=== PATIENT | female | born 1990 | race Caucasian/White ===

== ENCOUNTER 2022-10-21 20:57 | Inpatient (IN) ==
[2022-10-21] MEDS ORDERED: SODIUM CHLORIDE 0.9% 1000ML 1,000 ML IV SCH (21:15)
[2022-10-21] MEDS ORDERED: OLANZapine 10 MG/2.1 ML SDV IM STA (21:22)
[2022-10-21 21:39] LABS: Basophils # (auto) 0.04 K/uL (0-0.2); Basophils % (auto) 0.5 %; Eosinophils # (auto) 0.26 K/uL (0-0.50); Hemoglobin 11.5 g/dl (12.0-16.0); Immature Granulocytes # (auto) 0.02 K/uL (0.01-0.20); Immature Granulocytes % (auto) 0.2 %; Lymphocytes # (auto) 1.75 K/uL (1.2-3.4); Lymphocytes % (auto) 20.2 %; Mean Corpuscular Hemoglobin 28.5 pg (25.0-34.0); Mean Corpuscular Hgb Conc 32.9 g/dL (32.0-36.0); Mean Corpuscular Volume 86.6 fL (80.0-100.0); Mean Platelet Volume 11.2 fL (9.4-12.4); Monocytes # (auto) 0.38 K/uL (0.11-0.59); Monocytes % (auto) 4.4 %; Neutrophils # (auto) 6.21 K/uL (1.40-6.50); Neutrophils % (auto) 71.7 %; Platelet Count 209 K/uL (130-400); RDW Coefficient of Variation 13.7 % (11.5-14.5); Red Blood Count 4.04 M/uL (4.20-5.40); White Blood Count 8.66 K/ul (4.8-10.8)
[2022-10-21 21:51] LABS: Alanine Aminotransferase 16 U/L (7-52); Albumin Globulin Ratio 1.4 (0.9-2); Albumin Level 3.8 gm/dl (3.4-5.0); Alkaline Phosphatase 38 U/L (34-104); Anion Gap 5 (3-11); Aspartate Aminotransferase 23 U/L (13-39); BUN Creatinine Ratio 26.8 (10-20); Bilirubin,Total 0.3 mg/dl (0.2-1.0); Blood Urea Nitrogen 15 mg/dl (6-23); Calcium 9.1 mg/dl (8.6-10.3); Carbon Dioxide 25 mmol/L (21-32); Chloride 110 mmol/L (98-107); Est GFR (Non-African American) 123.4 ml/min; Globulin 2.8 gm/dl (2.5-4.0); Glucose 95 mg/dl (70-99(Fasting)); Magnesium 2.1 mg/dl (1.7-2.4); Sodium 140 mmol/L (136-145); Total Protein 6.6 gm/dl (6.0-8.3)
[2022-10-21 21:57] LABS: Appearance Urine Clear (Clear); Bilirubin Urine Negative (Negative); Blood Urine Negative (Negative); Color Urine Yellow; Glucose Urine UA Negative (Negative); Ketones Urine Trace (Negative); Leukocyte Esterase Urine Negative (Negative); Nitrite Urine Negative (Negative); Protein Urine Negative (Negative); Urobilinogen Urine Negative (Negative)
[2022-10-21 22:24] LABS: Amphetamines+Metham, Urine Neg (Neg); Barbiturates, Urine Neg (Neg); Benzodiazepine, Urine Neg (Neg); Cocaine, Urine Neg (Neg); MDMA (Ecstacy), Urine Neg (Neg); Methadone, Urine Neg (Neg); Opiate, Urine Neg (Neg); Phencyclidine, Urine Neg (Neg)
--- NOTE | 2022-10-21 22:57 | Emergency Department Note ---
Impression & Plan [facility] ED Provider Note CHIEF COMPLAINT: Altered mental status HISTORY OF PRESENT ILLNESS: This 32-year-old female patient past medical history of psychosis and migraine headaches presents to the emergency department after being found outside of her apartment complex staring. Patient was apparently alone at the time. She does have a history per police of similar, they came across her several months ago. Not much is known about the patient's family/housing situation at the time of EMS drop-off. REVIEW OF SYSTEMS: Unable to obtain a full review of systems secondary to patient's mental status. ALLERGIES: see below MEDICATIONS: see below PMH: see below SOCIAL HISTORY: see below DDx: Mood disorder, infection, hypoglycemia, electrolyte abnormalities, cardiac sources, intracerebral event, toxicologic, trauma, neurologic, as well as other pathologies. PHYSICAL EXAM: Vital signs reviewed. General: Chronically [id number] 32 yo female, in no significant di stress. HEENT: No scleral icterus, PERRLA, neck supple. Seborrheic dermatitis to the face Cardiovascular: Regular rate and rhythm, no extra sounds. Pulmonary: Clear to auscultation bilaterally, normal work of breathing. Abdomen: Soft, nontender, nondistended, positive bowel sounds. Musculoskeletal: Atraumatic, no peripheral edema. Neurologic: Patient awake, responds to painful stimuli but slowly. Nonverbal. Keeps her eyes closed but does blink when her name is called. Skin: Warm, dry, no rash EMERGENCY DEPARTMENT COURSE/MDM: Additional history was obtained through police from family members. Patient apparently lives in an apartment with her 2 brothers who were not able to give much detail about the patient's medical history except that she was recently prescribed antibiotics for "Lyme disease." 1 brother did describe to police that is not unusual for the patient to stand and stare and one room for several hours. She was apparently nonverbal for several months in the early spring of this year. She has been admitted for psychosis in the past. The patient was medically evaluated here in the emergency department and felt stable for psychiatric admission. She did receive Zyprexa 5 mg IM during her stay in the emergency department. At this time there is no evidence of medical abnormality including negative CT scan of the brain. Urine drug screen is negative. The patient's case was discussed with Dr. Shafer at the change of shift pending a 302 bed search by the [facility] delegate. Patient is felt to be unable to consent given her mental status, she is unable to care for self and to take her medications. She will require inpatient psychiatric care. MONITORING: An order for cardiac monitoring was placed and the patient is noted to be in a normal sinus rhythm at 88 beats per minute. RADIOLOGY: CT imaging of the head to my interpretation reveals no evidence of a cute intracranial abnormality, otherwise defer to radiology. DISPOSITION: pending Past Med/Surg History Medical History Allergic rhinitis Migraine Vitamin D deficiency Surgical History History of wisdom tooth extraction Family History Mother FHx: allergies Diabetes Heart disease Father , Age 56 Heart disease Myocardial infarction Pulmonary embolism Aunt Breast cancer Colorectal cancer Grandmother (Maternal) Myocardial infarction Denies family history of Ovarian cancer Prostate cancer Social History Smoking Status: Unknown if ever smoked Second Hand Exposure: Yes; Do You Dip or Chew Tobacco: No; Hx Alcohol Use: Yes Alcohol type: hard liquor Alcohol Intake Frequency: Monthly or Less Hx Substance Use: No Preferred Language: [place] Visual Impairment: Limited Hearing Ability: Normal Conductor Freight Required: No marital status: Single Current Living Situation: Family current occupational status: employed current occupation: [employer] How many Children do You have: 0 Feels Safe at Home: Declines to Answer Childhood Exposure to Second-Hand Smoke: Yes caffeine: Yes Dental Care, Regularly: No Physical Activity Frequency: 1-2 Times per Week Seatbelt Use: always Sunscreen Use: Yes Do you think of yourself as: straight/heterosexual Sexual Activity: has never been active Allergies Allergies Allergy/AdvReac Type Severity Reaction Status Date / Time strawberry Allergy Unknown Verified 10/22/22 00:10 tree and shrub pollen Allergy Unknown Verified 10/22/22 00:10 yellow dye Allergy Unknown Verified 10/22/22 00:10 Home Meds Home Medications Medication Instructions Recorded Confirmed cetirizine 10 mg tablet (Zyrtec) 10 mg PO DAILY 11/03/19 10/22/22 azelastine 137 mcg (0.1 %) nasal 1 spray intranasal BID 10/22/22 10/22/22 spray aerosol cholecalciferol (vitamin D3) 50 50 mcg PO DAILY 10/22/22 10/22/22 mcg (2,000 unit) tablet (Vitamin D3) vitamin B complex 1 tab PO DAILY 10/22/22 10/22/22 Results & Data (ED) Vital Signs Vital Signs - 24 hr 10/21/22 21:04 10/21/22 21:03 10/21/22 22:01 Temperature 37 C Temperature Source Oral Pulse Rate 88 89 98 H Pulse Rate [Finger] Pulse Rhythm Regular Pulse Strength Normal Respiratory Rate 17 21 Respiratory Effort / Characteristics Non-Labored Spontaneous Respiratory Depth Normal Respiratory Pattern Regular Blood Pressure 130/82 118/72 Blood Pressure [Left Arm] Blood Pressure Mean 98 87 Blood Pressure Mean [Left Arm] Blood Pressure Position Sitting Pulse Oximetry 100 98 Oxygen Delivery Method Room Air Room Air Sepsis Recent Fever Within 48 Hours No Sepsis New/Unexplained Change in Mental Status N/A Sepsis Action Taken by Nursing No Action Required 10/21/22 22:30 10/21/22 23:00 10/21/22 23:30 Temperature Temperature Source Pulse Rate 67 72 88 Pulse Rate [Finger] Pulse Rhythm Pulse Strength Respiratory Rate 19 19 20 Respiratory Effort / Characteristics Respiratory Depth Respiratory Pattern Blood Pressure 102/56 L 109/76 112/78 Blood Pressure [Left Arm] Blood Pressure Mean 71 87 89 Blood Pressure Mean [Left Arm] Blood Pressure Position Pulse Oximetry 97 97 94 Oxygen Delivery Method Room Air Room Air Room Air Sepsis Recent Fever Within 48 Hours Sepsis New/Unexplained Change in Mental Status Sepsis Action Taken by Nursing 10/22/22 00:00 10/22/22 00:56 10/22/22 01:28 Temperature Temperature Source Pulse Rate 62 58 L Pulse Rate [Finger] 77 Pulse Rhythm Pulse Strength Respiratory Rate 20 14 Respiratory Effort / Characteristics Non-Labored Spontaneous Respiratory Depth Normal Respiratory Pattern Blood Pressure 98/55 L Blood Pressure [Left Arm] 116/81 Blood Pressure Mean 69 Blood Pressure Mean [Left Arm] 92 Blood Pressure Position Pulse Oximetry 98 97 Oxygen Delivery Method Room Air Room Air Sepsis Recent Fever Within 48 Hours Sepsis New/Unexplained Change in Mental Status Sepsis Action Taken by [facility] Medications Current Medication List: was personally reviewed by me (Prescription fill history reviewed.) Laboratory Data Attestation: I reviewed the patient's lab results. 10/21/22 21:16 10/21/22 21:16 Lab Results 10/21/22 10/21/22 10/21/22 Range/Units 21:04 21:16 21:16 WBC 8.66 (4.8-10.8) K/ul RBC 4.04 L (4.20-5.40) M/uL Hgb 11.5 L (12.0-16.0) g/dl Hct 35.0 L (37.0-47.0) % MCV 86.6 (80.0-100.0) fL MCH 28.5 (25.0-34.0) pg MCHC 32.9 (32.0-36.0) g/dL RDW Std Deviation 43.0 (36.4-46.3) fL RDW Coeff of Klarissa 13.7 (11.5-14.5) % Plt Count 209 (130-400) K/uL MPV 11.2 (9.4-12.4) fL Immature Gran % (Auto) 0.2 % Neut % (Auto) 71.7 % Lymph % (Auto) 20.2 % Bonner % (Auto) 4.4 % Eos % (Auto) 3.0 % Baso % (Auto) 0.5 % Neut # (Auto) 6.21 (1.40-6.50) K/uL Lymph # (Auto) 1.75 (1.2-3.4) K/uL Bonner # (Auto) 0.38 (0.11-0.59) K/uL Eos # (Auto) 0.26 (0-0.50) K/uL Baso # (Auto) 0.04 (0-0.2) K/uL Immature Gran # (Auto) 0.02 (0.01-0.20) K/uL Sodium 140 (136-145) mmol/L Potassium 4.0 (3.5-5.1) mmol/L Chloride 110 H (98-107) mmol/L Carbon Dioxide 25 (21-32) mmol/L Anion Gap 5 (3-11) BUN 15 (6-23) mg/dl Creatinine 0.56 L (0.6-1.2) mg/dl Est Cr Clr Drug Dosing Not Reportable Est GFR ( Amer) 143.0 ml/min Est GFR (Non-Af Amer) 123.4 ml/min BUN/Creatinine Ratio 26.8 H (10-20) Glucose 95 (70-99(Fasting)) mg/dl POC Glucose 105 H (70-99) mg/dl Calcium 9.1 (8.6-10.3) mg/dl Magnesium 2.1 (1.7-2.4) mg/dl Total Bilirubin 0.3 (0.2-1.0) mg/dl AST 23 (13-39) U/L ALT 16 (7-52) U/L Alkaline Phosphatase 38 (34-104) U/L Total Protein 6.6 (6.0-8.3) gm/dl Albumin 3.8 (3.4-5.0) gm/dl Globulin 2.8 (2.5-4.0) gm/dl Albumin/Globulin Ratio 1.4 (0.9-2) TSH (0.300-4.500) uIu/ml Urine Color Urine Appearance (Clear) Urine pH (4.5-7.5) Ur Specific Eden (1.000-1.030) Urine Protein (Negative) Urine Glucose (UA) (Negative) Urine Ketones (Negative) Urine Blood (Negative) Urine Nitrite (Negative) Urine Bilirubin (Negative) Urine Urobilinogen (Negative) Ur Leukocyte Esterase (Negative) Urine Opiates Screen (Neg) Ur Methadone, Qual (Neg) Urine Barbiturates (Neg) Ur Phencyclidine (PCP) (Neg) U Amphetamin/Meth Scrn (Neg) MDMA (Ecstasy) Screen (Neg) U Benzodiazepines Scrn (Neg) Ur Cocaine Metabolite (Neg) U Marijuana (THC) Screen (Neg) Ethyl Alcohol mg/dL (<10.0) mg/dl SARS-CoV-2, RNA, NAAT (NEGATIVE) 10/21/22 10/21/22 10/21/22 Range/Units 21:16 21:16 21:30 WBC (4.8-10.8) K/ul RBC (4.20-5.40) M/uL Hgb (12.0-16.0) g/dl Hct (37.0-47.0) % MCV (80.0-100.0) fL MCH (25.0-34.0) pg MCHC (32.0-36.0) g/dL RDW Std Deviation (36.4-46.3) fL RDW Coeff of Klarissa (11.5-14.5) % Plt Count (130-400) K/uL MPV (9.4-12.4) fL Immature Gran % (Auto) % Neut % (Auto) % Lymph % (Auto) % Bonner % (Auto) % Eos % (Auto) % Baso % (Auto) % Neut # (Auto) (1.40-6.50) K/uL Lymph # (Auto) (1.2-3.4) K/uL Bonner # (Auto) (0.11-0.59) K/uL Eos # (Auto) (0-0.50) K/uL Baso # (Auto) (0-0.2) K/uL Immature Gran # (Auto) (0.01-0.20) K/uL Sodium (136-145) mmol/L Potassium (3.5-5.1) mmol/L Chloride (98-107) mmol/L Carbon Dioxide (21-32) mmol/L Anion Gap (3-11) BUN (6-23) mg/dl Creatinine (0.6-1.2) mg/dl Est Cr Clr Drug Dosing Est GFR ( Amer) ml/min Est GFR (Non-Af Amer) ml/min BUN/Creatinine Ratio (10-20) Glucose (70-99(Fasting)) mg/dl POC Glucose (70-99) mg/dl Calcium (8.6-10.3) mg/dl Magnesium (1.7-2.4) mg/dl Total Bilirubin (0.2-1.0) mg/dl AST (13-39) U/L ALT (7-52) U/L Alkaline Phosphatase (34-104) U/L Total Protein (6.0-8.3) gm/dl Albumin (3.4-5.0) gm/dl Globulin (2.5-4.0) gm/dl Albumin/Globulin Ratio (0.9-2) TSH 1.571 (0.300-4.500) uIu/ml Urine Color Urine Appearance (Clear) Urine pH (4.5-7.5) Ur Specific Eden (1.000-1.030) Urine Protein (Negative) Urine Glucose (UA) (Negative) Urine Ketones (Negative) Urine Blood (Negative) Urine Nitrite (Negative) Urine Bilirubin (Negative) Urine Urobilinogen (Negative) Ur Leukocyte Esterase (Negative) Urine Opiates Screen (Neg) Ur Methadone, Qual (Neg) Urine Barbiturates (Neg) Ur Phencyclidine (PCP) (Neg) U Amphetamin/Meth Scrn (Neg) MDMA (Ecstasy) Screen (Neg) U Benzodiazepines Scrn (Neg) Ur Cocaine Metabolite (Neg) U Marijuana (THC) Screen (Neg) Ethyl Alcohol mg/dL < 10.0 (<10.0) mg/dl SARS-CoV-2, RNA, NAAT NEGATIVE (NEGATIVE) 10/21/22 10/21/22 Range/Units 21:43 21:43 WBC (4.8-10.8) K/ul RBC (4.20-5.40) M/uL Hgb (12.0-16.0) g/dl Hct (37.0-47.0) % MCV (80.0-100.0) fL MCH (25.0-34.0) pg MCHC (32.0-36.0) g/dL RDW Std Deviation (36.4-46.3) fL RDW Coeff of Klarissa (11.5-14.5) % Plt Count (130-400) K/uL MPV (9.4-12.4) fL Immature Gran % (Auto) % Neut % (Auto) % Lymph % (Auto) % Bonner % (Auto) % Eos % (Auto) % Baso % (Auto) % Neut # (Auto) (1.40-6.50) K/uL Lymph # (Auto) (1.2-3.4) K/uL Bonner # (Auto) (0.11-0.59) K/uL Eos # (Auto) (0-0.50) K/uL Baso # (Auto) (0-0.2) K/uL Immature Gran # (Auto) (0.01-0.20) K/uL Sodium (136-145) mmol/L Potassium (3.5-5.1) mmol/L Chloride (98-107) mmol/L Carbon Dioxide (21-32) mmol/L Anion Gap (3-11) BUN (6-23) mg/dl Creatinine (0.6-1.2) mg/dl Est Cr Clr Drug Dosing Est GFR ( Amer) ml/min Est GFR (Non-Af Amer) ml/min BUN/Creatinine Ratio (10-20) Glucose (70-99(Fasting)) mg/dl POC Glucose (70-99) mg/dl Calcium (8.6-10.3) mg/dl Magnesium (1.7-2.4) mg/dl Total Bilirubin (0.2-1.0) mg/dl AST (13-39) U/L ALT (7-52) U/L Alkaline Phosphatase (34-104) U/L Total Protein (6.0-8.3) gm/dl Albumin (3.4-5.0) gm/dl Globulin (2.5-4.0) gm/dl Albumin/Globulin Ratio (0.9-2) TSH (0.300-4.500) uIu/ml Urine Color Yellow Urine Appearance Clear (Clear) Urine pH 6.0 (4.5-7.5) Ur Specific Eden 1.030 (1.000-1.030) Urine Protein Negative (Negative) Urine Glucose (UA) Negative (Negative) Urine Ketones Trace H (Negative) Urine Blood Negative (Negative) Urine Nitrite Negative (Negative) Urine Bilirubin Negative (Negative) Urine Urobilinogen Negative (Negative) Ur Leukocyte Esterase Negative (Negative) Urine Opiates Screen Neg (Neg) Ur Methadone, Qual Neg (Neg) Urine Barbiturates Neg (Neg) Ur Phencyclidine (PCP) Neg (Neg) U Amphetamin/Meth Scrn Neg (Neg) MDMA (Ecstasy) Screen Neg (Neg) U Benzodiazepines Scrn Neg (Neg) Ur Cocaine Metabolite Neg (Neg) U Marijuana (THC) Screen Neg (Neg) Ethyl Alcohol mg/dL (<10.0) mg/dl SARS-CoV-2, RNA, NAAT (NEGATIVE) Administered Medications Discontinued Medications Sodium Chloride (Nss 1000ml) 1,000 mls @ 999 mls/hr IV .[id number] KIERAN Stop: 10/21/22 22:15 Last Infusion: 10/21/22 22:38 Dose: 0 mls/hr Documented By: Admin: 10/21/22 21:35 Dose: 999 mls/hr Documented By: MARTY Olanzapine (Olanzapine 10 Mg/2.1 Ml Sdv) 5 mg IM NOW STA Stop: 10/21/22 21:23 Last Admin: 10/21/22 21:34 Dose: 5 mg Documented By: KAF Imaging Data Radiologist's Impression: Head CT 10/21/22 21:14 Exam(s): CT HEAD Without Contrast EXAM: CT Head Without Intravenous Contrast CLINICAL HISTORY: Reason for exam: AMS. TECHNIQUE: Axial computed tomography images of the head/brain without intravenous contrast. Automated exposure control was utilized for the study. A dose lowering technique was utilized adhering to the principles of ALARA. COMPARISON: No relevant prior studies available. FINDINGS: No acute intracranial hemorrhage. No midline shift or mass effect. The territorial lewis-white matter differentiation is maintained throughout. The ventricles and sulci are commensurate with age. The visualized orbits appear grossly unremarkable. The calvarium is intact. The visualized paranasal sinuses and mastoid air cells are grossly clear. IMPRESSION: No acute intracranial hemorrhage, midline shift, or mass effect. Electronically signed by: Bennett Puente MD 10/21/22 23:10 PM Discharge Plan Visit Data Chief Complaint: Altered Mental Status ED Provider: Radha Shafer Discharge Problem: [place] Forms Stand Alone Forms: [facility] Prescriptions Prescriptions: No Action cetirizine [Zyrtec] 10 mg tablet 10 mg PO DAILY vitamin B complex Tablet 1 tab PO DAILY azelastine 137 mcg (0.1 %) aerosol,spray 1 spray INTRANASAL BID cholecalciferol (vitamin D3) [Vitamin D3] 50 mcg (2,000 unit) Tablet 50 mcg PO DAILY Referrals Referrals: Ángel Bell MD [Primary Care Provider] -
--- NOTE | 2022-10-21 23:11 | CT Scan Report ---
Exam(s): CT HEAD Without Contrast EXAM: CT Head Without Intravenous Contrast CLINICAL HISTORY: Reason for exam: AMS. TECHNIQUE: Axial computed tomography images of the head/brain without intravenous contrast. Automated exposure control was utilized for the study. A dose lowering technique was utilized adhering to the principles of ALARA. COMPARISON: No relevant prior studies available. FINDINGS: No acute intracranial hemorrhage. No midline shift or mass effect. The territorial lewis-white matter differentiation is maintained throughout. The ventricles and sulci are commensurate with age. The visualized orbits appear grossly unremarkable. The calvarium is intact. The visualized paranasal sinuses and mastoid air cells are grossly clear. IMPRESSION: No acute intracranial hemorrhage, midline shift, or mass effect. Electronically signed by: Bennett Puente MD 10/21/22 23:10 PM
[2022-10-22 01:52] LABS: Pregnancy Test, Urine Negative (Negative)
--- NOTE | 2022-10-22 04:02 | Emergency Department Note ---
ED Visit Note Date and Time: 2910/22/2022 Interval History: Sign out received from Dr. Esposito who reviewed details of the encounter. Patient was pending bed placement. Summary: Patient is resting comfortably and was evaluated by staff from 3 S. Disposition: Patient was a 302 and was excepted to 3 [facility]. .
[2022-10-22] MEDS ORDERED: BISMUTH SUBSALICYLATE LIQD 236 ML PO PRN (05:14)
[2022-10-22] MEDS ORDERED: MAGNESIUM HYDROXIDE SUSP 30 ML UDC PO PRN (05:14)
[2022-10-22] MEDS ORDERED: SODIUM CHLORIDE 0.65% NA SOLN 45 ML (OCEAN) PRN (05:14)
[2022-10-22] MEDS ORDERED: ACETAMINOPHEN 325 MG TAB PO PRN (05:14)
[2022-10-22] MEDS ORDERED: ALUMINUM/MAGNESIUM SUSP 30 ML UDC PO PRN (05:14)
[2022-10-22] MEDS ORDERED: hydrOXYzine HCl 25 MG TAB PO PRN ×2 (05:14)
--- NOTE | 2022-10-22 08:13 | XRay Report ---
XR chest 1V portable CLINICAL HISTORY: weakness TECHNIQUE: Single frontal radiograph of the chest was obtained. Comparison: Comparison is made to chest radiograph 03/30/2022 FINDINGS: No lines and tubes are seen. The cardiomediastinal silhouette is normal. The lungs are clear. No evid ence of pleural effusion or pneumothorax. IMPRESSION: No acute chest disease. ACT 112: Negative or not required by law. Electronically signed by: Petey Ibrahim M.D. 10/22/2022 8:11 AM
--- NOTE | 2022-10-22 14:10 | Electrocardiogram Report ---
Test Reason : Blood Pressure : / mmHG Vent. Rate : 089 BPM Atrial Rate : 089 BPM P-R Int : 154 ms QRS Dur : 068 ms QT Int : 352 ms P-R-T Axes : 044 043 029 degrees QTc Int : 428 ms Sinus rhythm Nonspecific ST abnormality Abnormal ECG No previous ECGs available Confirmed by Eduardo Brambila ([id number]) on 10/22/2022 2:10:34 PM Referred By: REFERRED SELF Confirmed By:Eduardo Brambila
[2022-10-22] MEDS ORDERED: LORazepam 1 MG TAB SL STA (15:12)
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
[2022-10-22] MEDS: LORazepam 1 MG TAB SL SCH (21:47)
[2022-10-23] MEDS: LORazepam 1 MG TAB SL SCH ×3 (09:59→21:09)
[2022-10-23 10:16] LABS: Basophils # (auto) 0.03 K/uL (0-0.2); Basophils % (auto) 0.4 %; Eosinophils # (auto) 0.22 K/uL (0-0.50); Hematocrit (blood only) 35.1 % (37.0-47.0); Hemoglobin 11.7 g/dl (12.0-16.0); Immature Granulocytes # (auto) 0.01 K/uL (0.01-0.20); Immature Granulocytes % (auto) 0.1 %; Lymphocytes % (auto) 38.9 %; Mean Corpuscular Hemoglobin 28.9 pg (25.0-34.0); Mean Corpuscular Hgb Conc 33.3 g/dL (32.0-36.0); Mean Corpuscular Volume 86.7 fL (80.0-100.0); Mean Platelet Volume 10.7 fL (9.4-12.4); Monocytes # (auto) 0.37 K/uL (0.11-0.59); Neutrophils # (auto) 3.92 K/uL (1.40-6.50); Neutrophils % (auto) 52.6 %; Platelet Count 207 K/uL (130-400); RDW Coefficient of Variation 13.9 % (11.5-14.5); RDW Standard Deviation 43.7 fL (36.4-46.3); Red Blood Count 4.05 M/uL (4.20-5.40); White Blood Count 7.45 K/ul (4.8-10.8)
[2022-10-23 10:36] LABS: Anion Gap 5 (3-11); BUN Creatinine Ratio 12.5 (10-20); Blood Urea Nitrogen 6 mg/dl (6-23); C Reactive Protein < 0.50 mg/dl (0-0.5); Calcium 8.5 mg/dl (8.6-10.3); Carbon Dioxide 26 mmol/L (21-32); Chloride 109 mmol/L (98-107); Chol HDL Ratio 4.1 (0-5); Cholesterol 136 mg/dl (0-200); Est GFR (African American) > 150.0 ml/min; Est GFR (Non-African American) 129.8 ml/min; Glucose 78 mg/dl (70-99(Fasting)); HDL Cholesterol 33 mg/dl; LDL Cholesterol Calculated 85 mg/dl; Potassium 3.6 mmol/L (3.5-5.1); Sodium 140 mmol/L (136-145); Triglycerides 91 mg/dl (0-150); VLDL Cholesterol 18 mg/dl (0-30)
[2022-10-23 11:01] LABS: Lyme Ab IgG w/WB Rflx Negative (Negative); Lyme Ab IgM w/WB Rflx Negative (Negative)
[2022-10-23 11:10] LABS: Estimated Average Glucose 103 mg/dl; Hemoglobin A1C 5.2 % (4.5-5.6)
[2022-10-23] MEDS ORDERED: FLUCONAZOLE 50 MG TAB PO ONE (11:30)
[2022-10-23] MEDS ORDERED: BENZTROPINE MESYLATE 1 MG TAB PO PRN (11:44)
[2022-10-23] MEDS: haloperidoL 5 MG TAB PO SCH ×2 (11:59→22:18)
[2022-10-23] MEDS: AZELASTINE HCL 0.1% NASAL 200 SPRAYS/27,400 MCG BTL SCH ×2 (12:23→22:17)
[2022-10-23] MEDS: CETIRIZINE HCL 10 MG TABLET PO SCH (12:23)
--- NOTE | 2022-10-23 15:31 | Psychiatric Progress Note ---
Date of Service October 23, 2022 Impression / Recommendations Impression 32 yo female with history of psychotic episodes, who presented to the hospital immediately prior to the current admission in a catatonic state. She remained catatonic initially, and continues to go in and out of catatonia periodically, as described above. Fortunately, the patient has responded to some degree to the addition of oral lorazepam, at least in terms of some improvement in her catatonia. However, what is observed today is that the patient has a number of paranoid delusions as well as a fairly pronounced thought disorder marked by fairly highly disorganized thinking. The patient does provide contradictory history. For example, when asked questions that might lead to an explanation for her urinary incontinence, the patient initially told me that she was just losing control of her bladder, with no burning on urination, no discoloration of her urine, and no foul odors. Later, she told me that she had a dark yellow "discharge" that was malodorous when she urinated approximately a week ago. There is a concern that the patient might have a urinary tract infection. However, her urinary incontinence may also be explained by the episodes of catatonia. Because the patient is unwilling to commit to take psychiatric medications as prescribed here in the hospital, because she periodically continues to demonstrate symptoms of catatonia (both with me and with other members of the treatment team), because of the intensity of the patient's psychotic features, because the patient lacks a great deal of insight and is largely confused, and because without psychiatric medication she is likely to remain a danger to herself if not treated with psychiatric medications, I do feel that she would meet criteria for medications over objection. It is noted that she is currently taking lorazepam as prescribed, and at present the patient is not issuing objections, but there is a decided potential for the patient to again become unwilling or unable to take psychiatric medications orally. Urina lysis has been ordered, but the sample has not yet been collected. I do suspect that the patient may have a urinary tract infection, and at this point she is not able to provide a reliable history. She has reportedly had at least 1 episode of urinary incontinence here on the unit, and she, herself, reports that she is had urinary incontinence off and on during the past week. I have ordered Bactrim DS 800 mg/160 mg to be taken every 12 hours, but only after the sample for the urinalysis has been collected. My overall impression is that the patient suffering from schizophrenia. It is noted that she is tearful and crying a great deal, and a coarse catatonia can also occur in major depression, but the patient's loose associations and the multiple paranoid delusional believes (which would not congruent with depression) seem to point in my opinion to schizophrenia. (1) Unspecified psychosis not due to a substance or known physiological condition: (2) Catatonia: (3) Risk of exposure to Lyme disease: Plan The plan is to continue lorazepam 2 mg 3 times daily for the treatment of catatonia. She will also continue haloperidol 2.5 mg twice a day, and the latter medication will be titrated as indicated. We continues to require inpatient psychiatric hospitalization on a locked unit. Inventory Assets Strengths: Intelligent. Appropriate social skills. Needs: Needs resolution of psychotic features. Requires resolution of catatonia catatonia. Suicide Risk Level Suicide Risk Level: Low (q15 min observation checks) Suicide Risk Level Comments: The patient reports that she is not having any thoughts of physically harming herself, and makes a contract to tell staff if she should have thoughts of harming herself. Risk Factors Assessment Has been a concern because the patient has been not eating, or has only eaten the occasional meal since arriving. Also, the patient is floridly confused and periodically and unpredictably comes catatonic. Male: No : Yes Do You Have Access To A Gun?: No Health Problems: Yes Mental Health Diagnoses: Yes Substance Use Disorders: No Previous Attempt: No Family History of Suicide: No Previous Psychiatric Hospitalization: Yes Hopelessness: No Interval History Identifying Information The patient is a 32-year-old woman who is currently on the inpatient service on the behavioral health unit at [facility]. Chief Complaint "I am really very sick! A former coworker is breaking in and killing my cats!". Review of Systems Sleep Information Total Hours of Sleep: 5.5 Sleep Comments: Had difficulty sleeping; restless and wandering unit; attempted to read before falling asleep Meal Information Percent Meal Consumed - Breakfast: 0 Percent Meal Consumed - Lunch: 100 Percent Meal Consumed - Dinner: 0 Nutrition Comment: Pt is sleeping soundly.Trayed safed for later Subjective Subjective Patient was seen & assessed and interval progress reviewed with the treatment team. The patient began today's encounter by tearfully telling me that come among other things, she has been very ill, physically, with multiple vague complaints, such as "something that feels like ropes inside my chest," and "my mouth is very dry and there is something in it (the patient states as she points seemingly to nothing that I could see on the inside of her mouth)" and "there is something wrong with my bladder." Although verbal, the patient was highly disorganized, and at times her verbal productions approached the level of word salad. Among other things, the patient told me that there is some sort of a plot, possibly by the [employer], against the "Fam," by which she clarifies she means her own family. She provided several nonsensical examples, such as a supposed conspiracy to have various family members arrested and incarcerated. As above, she also stated that she believes that a former coworker is somehow breaking into her home and killing her cats. Furthermore, she told me that her college career had been "ruined" by a conspiracy to deprive her and others of the lungs to which she believes she should be entitled in order to matriculate at [employer]. The patient went silent on a fairly regular basis, and it seemed that this was most likely to occur when I ask a question about something that was possibly troubling the patient. For example, I asked her if she had ever gotten messages or warnings from other people that no one else knew about or could hear, and she stopped talking for approximately 5 minutes, but then resumed when I ask a more benign question, such as today's date. She made several references to "a number of family dynamic [issues]," but was reluctant to expand upon this. I had a great deal of difficulty obtaining a psychiatric history from the patient. When I asked if she had ever seen a psychiatrist before she came to [facility], she originally said "no, I am supposed to, but I have not done it yet." She then spontaneously said, "I saw this fucking psychiatrist at [unintelligible]. I do not trust psychiatrist." Patient also originally denied any past history of psychiatric hospitalizations, but then acknowledged that she had been in [facility] in [place], and she said (evidently correctly, that she believes that that had been last year. I told the patient that it appears to me, based upon what I have been able to see in her record, that she is responding favorably to the medications that she is taking here in the hospital. However, she fell silent when I asked her to make a commitment to continue to take them when offered. I also asked the patient to tell me about her urinary incontinence. Initially, she told me that there were no complications, other than several episodes of urinary incontinence. She specifically denied burning or any other form of pain on micturition, and she also said that her urine was not discolored nor was there a foul odor. Later in the interview, the patient spontaneously told me that she had seen a dark yellow discharge while urinating possibly about a week ago. Although I see that the patient's mother had said something about the patient having suffered a miscarriage, the patient told me today that she is para 0 0. Physical Exam Psychiatric The patient is a 32-year-old woman who is generally cooperative, but who appears disheveled Ms Loya is oriented to person, place, year, month, but incorrect tells me that this is "the beginning of October. Somewhat disheveled The patient engages in moderate eye contact Somewhat tremulous. At other times, the patient becomes completely catatonic, both verbally and physically. These episodes lasted anywhere from 30 seconds to several minutes. The patient speaks in a fairly high-pitched, somewhat shaky voice. She cries and sobs off and on throughout the interview. The patient cries periodically throughout the interview, sometimes apparently spontaneously. At other times, she was fairly animated and smiled several times appropriately during the encounter. She also registered anger when discussing her experiences as a different psychiatric facility in the past. "Worried." The patient demonstrates loose associations. At times, her associations loosened to the degree that they approached word salad. The content includes a number of paranoid delusions, as described above Patient reports that she has no thoughts of suicide, and also reports that she has no history of intentional self-injurious behaviors. The patient reports that she has no history of thoughts of homicide, and she also affirms that she has never intentionally cause physical harm to the person or property of others. The patient did not respond to questions regarding perceptual disturbances. However, when asked about them the patient fell silent, became mute and motorically immobile. Eventually, her facial expression suggested that she was quite possibly experiencing internal stimuli. The patient was oriented to person, place, and time (although she could not name the date, but knew that it was October 2022). She notes that she is in a hospital, and understood that I am a psychiatrist, but its not clear if she is oriented to situation. Above average Poor Limited Vital Signs (Past 24 Hours) Last Vital Signs Temp 36.7 C 10/22/22 15:56 Pulse 69 10/22/22 15:56 Resp 16 10/22/22 15:56 BP 118/81 10/22/22 15:56 Pulse Ox 99 10/22/22 15:56 O2 Del Method Room Air 10/22/22 15:56 Results & Data ([facility]) Laboratory Results Laboratory Results - last 24 hr 10/23/22 10/23/22 10/23/22 09:50 09:50 09:50 WBC RBC Hgb Hct MCV MCH MCHC RDW Std Deviation RDW Coeff of Klarissa Plt Count MPV Immature Gran % (Auto) Neut % (Auto) Lymph % (Auto) Sherman % (Auto) Eos % (Auto) Baso % (Auto) Neut # (Auto) Lymph # (Auto) Sherman # (Auto) Eos # (Auto) Baso # (Auto) Immature Gran # (Auto) ESR 15 Sodium 140 Potassium 3.6 Chloride 109 H Carbon Dioxide 26 Anion Gap 5 BUN 6 Creatinine 0.48 L Est Cr Clr Drug Dosing Not Reportable Est GFR ( Amer) > 150.0 Est GFR (Non-Af Amer) 129.8 BUN/Creatinine Ratio 12.5 Glucose 78 Estimat Average Glucose Hemoglobin A1c Calcium 8.5 L C-Reactive Protein < 0.50 Triglycerides 91 Cholesterol 136 LDL Cholesterol, Calc 85 VLDL Cholesterol, Calc 18 HDL Cholesterol 33 Cholesterol/HDL Ratio 4.1 Lyme Disease IgG Ab Negative Lyme Disease IgM Ab Negative 10/23/22 10/23/22 09:50 09:50 WBC 7.45 RBC 4.05 L Hgb 11.7 L Hct 35.1 L MCV 86.7 MCH 28.9 MCHC 33.3 RDW Std Deviation 43.7 RDW Coeff of Klarissa 13.9 Plt Count 207 MPV 10.7 Immature Gran % (Auto) 0.1 Neut % (Auto) 52.6 Lymph % (Auto) 38.9 Sherman % (Auto) 5.0 Eos % (Auto) 3.0 Baso % (Auto) 0.4 Neut # (Auto) 3.92 Lymph # (Auto) 2.90 Sherman # (Auto) 0.37 Eos # (Auto) 0.22 Baso # (Auto) 0.03 Immature Gran # (Auto) 0.01 ESR Sodium Potassium Chloride Carbon Dioxide Anion Gap BUN Creatinine Est Cr Clr Drug Dosing Est GFR ( Amer) Est GFR (Non-Af Amer) BUN/Creatinine Ratio Glucose Estimat Average Glucose 103 Hemoglobin A1c 5.2 Calcium C-Reactive Protein Triglycerides Cholesterol LDL Cholesterol, Calc VLDL Cholesterol, Calc HDL Cholesterol Cholesterol/HDL Ratio Lyme Disease IgG Ab Lyme Disease IgM Ab Current Inpatient Medications Current Inpatient Medications: Current Inpatient Medications Acetaminophen (Acetaminophen 325 Mg Tab) 650 mg PO Q4H PRN PRN Reason: Headache or Minor Fever Stop: 11/21/22 05:13 Al Hydrox/Mg Hydrox/Simethicone (Aluminum/Magnesium Susp 30 Ml Udc) 30 ml PO Q4H PRN PRN Reason: GI Upset Stop: 11/21/22 05:13 Azelastine HCl (Azelastine Hcl 0.1% Nasal 200 Sprays/27,400 Mcg Btl) 1 sprays NA BID KIERAN Stop: 11/22/22 11:59 Last Admin: 10/23/22 12:23 Dose: 1 sprays Benztropine Mesylate (Benztropine Mesylate 1 Mg Tab) 1 mg PO Q8 PRN PRN Reason: Muscle Spasm Stop: 11/22/22 11:43 Bismuth Subsalicylate (Bismuth Subsalicylate Liqd 236 Ml) 15 ml PO PRN PRN PRN Reason: Loose Stool Stop: 11/21/22 05:13 Cetirizine HCl (Cetirizine Hcl 10 Mg Tablet) 10 mg PO DAILY KIERAN Stop: 11/22/22 11:59 Last Admin: 10/23/22 12:23 Dose: 10 mg Haloperidol (Haloperidol 5 Mg Tab) 2.5 mg PO BID KIERAN Stop: 11/22/22 11:59 Last Admin: 10/23/22 11:59 Dose: 2.5 mg Hydroxyzine HCl (Hydroxyzine Hcl 25 Mg Tab) 50 mg PO HSZ PRN PRN Reason: Insomnia Stop: 11/21/22 05:13 Hydroxyzine HCl (Hydroxyzine Hcl 25 Mg Tab) 25 mg PO Q4H PRN PRN Reason: Anxiety Stop: 11/21/22 05:13 Lorazepam (Lorazepam 1 Mg Tab) 2 mg SL TID KIERAN Stop: 11/21/22 20:59 Last Admin: 10/23/22 14:51 Dose: 2 mg Magnesium Hydroxide (Magnesium Hydroxide Susp 30 Ml Udc) 30 ml PO DAILY PRN PRN Reason: Constipation Stop: 11/21/22 05:13 Sodium Chloride (Sodium Chloride 0.65% Na Soln 45 Ml ([place])) 1 - 2 sprays NA PRN PRN PRN Reason: Nasal Dryness/Congestion Stop: 11/21/22 05:13
--- NOTE | 2022-10-23 15:36 | Psychiatric Progress Note ---
Date of Service October 23, 2022 Impression / Recommendations Impression 32 yo female with history of psychotic episodes, primarily since COVID, suspect family minimizing severity of catatonia and/or her baseline functioning. It's very important never to minimize someone's trauma or potential for undiagnosed medical conditions but there is certainly concern that some of the incidents reported are delusions, seemingly shared with at least mother (tim jones). Mother reports that she and patient do not agree with a schizophrenia diagnosis or need for medication yet patient does endorse a prior hx of psychosis and that Haldol "seemed to help for awhile". (1) Unspecified psychosis not due to a substance or known physiological condition: (2) Catatonia: (3) Risk of exposure to Lyme disease: Plan 10/23/22: patient agreed to resume Haldol 2.5 mg BID and continue scheduled Ativan. Dr. Watters did provide opinion for forced meds as she remains very disorganized and catatonia has been waxing/waning. Anticipating need for extende d hospitalization petitioned for 303. 10/22/22: The patient was admitted to the [facility] ([facility]) on q15 min checks (behavioral with suicide precautions) for safety. The patient will participate in group, recreational, and milieu therapies as improves and will be offered additional individual and family sessions as clinically appropriate. SL Ativan given and although still won't acknowledge staff or family on phone, did ambulate to toilet/change bedding. Will offer again pending 2nd opinion from Dr. Watters for forced medication. Reviewed with mother indication for 303 hearing as at risk for dehydration. In meantime, as no evidence of lyme titer and recent tic bite will check ESR, lyme titers, repeat lytes, etc in am. Inventory Assets Strengths: unable to assess Needs: unable to assess Suicide Risk Level Suicide Risk Level: Low (q15 min observation checks) Risk Factors Assessment Do You Have Access To A Gun?: No Interval History Identifying Information JONELLE RANDOLPH is a 32-year-old F who currently lives in [place] with brothers, has a history of catatonia and unspecified psychosis, and was admitted on 04:19 on a 302 involuntary commitment for inability to care for self, initially unresponsive due to presumed catatonia. Chief Complaint "I do have all this living in me [crying] They are following me..I was looking for my friend." Review of Systems Sleep Information Total Hours of Sleep: 5.5 Sleep Comments: Had difficulty sleeping; restless and wandering unit; attempted to read before falling asleep Meal Information Percent Meal Consumed - Breakfast: 0 Percent Meal Consumed - Lunch: 100 Percent Meal Consumed - Dinner: 0 Subjective Subjective Patient was seen & assessed and interval progress reviewed with nursing and social work. Patient did improve a few hours after receiving Ativan in that she ate, drank some, and showered. This am she was sleeping/unresponsive again and initially did not cooperate with labs but were ultimately obtained. She has since been wandering around the unit, says she feels safe here compared to the [place] but remains quite disorganized. Is focussed on vaginal d ischarge/possible yeast infection (unclear if may be delusional, will rx empirically with 1 time dose of diflucan). States she has times that she wants to talk but can't, no real understanding of past catatonia. Physical Exam Psychiatric Orientation: alert Apperance: appropriately groomed Eye Contact: + fair eye contact Motor Behavior: no abnormal motor movements Speech: normal rate/rhythm/volume of speech Affect: + tearful affect Mood: + anxious mood Thought Process: + thought blocking and + looseness of associations Thought Content: + paranoid and + delusions Suicidal Thoughts: denies suicidal thoughts Homicidal Thoughts: denies homicidal thoughts Hallucinations: no auditory hallucinations and no visual hallucinations Cognition: language grossly intact; + attention not intact Insight: + severely impaired insight Vital Signs (Past 24 Hours) Last Vital Signs Temp 36.7 C 10/22/22 15:56 Pulse 69 10/22/22 15:56 Resp 16 10/22/22 15:56 BP 118/81 10/22/22 15:56 Pulse Ox 99 10/22/22 15:56 O2 Del Method Room Air 10/22/22 15:56 Results & Data ([facility]) Laboratory Results Laboratory Results - last 24 hr 10/23/22 10/23/22 10/23/22 09:50 09:50 09:50 WBC RBC Hgb Hct MCV MCH MCHC RDW Std Deviation RDW Coeff of Klarissa Plt Count MPV Immature Gran % (Auto) Neut % (Auto) Lymph % (Auto) [place] % (Auto) Eos % (Auto) Baso % (Auto) Neut # (Auto) Lymph # (Auto) [place] # (Auto) Eos # (Auto) Baso # (Auto) Immature Gran # (Auto) ESR 15 Sodium 140 Potassium 3.6 Chloride 109 H Carbon Dioxide 26 Anion Gap 5 BUN 6 Creatinine 0.48 L Est Cr Clr Drug Dosing Not Reportable Est GFR ( Amer) > 150.0 Est GFR (Non-Af Amer) 129.8 BUN/Creatinine Ratio 12.5 Glucose 78 Estimat Average Glucose Hemoglobin A1c Calcium 8.5 L C-Reactive Protein < 0.50 Triglycerides 91 Cholesterol 136 LDL Cholesterol, Calc 85 VLDL Cholesterol, Calc 18 HDL Cholesterol 33 Cholesterol/HDL Ratio 4.1 Lyme Disease IgG Ab Negative Lyme Disease IgM Ab Negative 10/23/22 10/23/22 09:50 09:50 WBC 7.45 RBC 4.05 L Hgb 11.7 L Hct 35.1 L MCV 86.7 MCH 28.9 MCHC 33.3 RDW Std Deviation 43.7 RDW Coeff of Klarissa 13.9 Plt Count 207 MPV 10.7 Immature Gran % (Auto) 0.1 Neut % (Auto) 52.6 Lymph % (Auto) 38.9 [place] % (Auto) 5.0 Eos % (Auto) 3.0 Baso % (Auto) 0.4 Neut # (Auto) 3.92 Lymph # (Auto) 2.90 [place] # (Auto) 0.37 Eos # (Auto) 0.22 Baso # (Auto) 0.03 Immature Gran # (Auto) 0.01 ESR Sodium Potassium Chloride Carbon Dioxide Anion Gap BUN Creatinine Est Cr Clr Drug Dosing Est GFR ( Amer) Est GFR (Non-Af Amer) BUN/Creatinine Ratio Glucose Estimat Average Glucose 103 Hemoglobin A1c 5.2 Calcium C-Reactive Protein Triglycerides Cholesterol LDL Cholesterol, Calc VLDL Cholesterol, Calc HDL Cholesterol Cholesterol/HDL Ratio Lyme Disease IgG Ab Lyme Disease IgM Ab Current Inpatient Medications Current Inpatient Medications: Current Inpatient Medications Acetaminophen (Acetaminophen 325 Mg Tab) 650 mg PO Q4H PRN PRN Reason: Headache or Minor Fever Stop: 11/21/22 05:13 Al Hydrox/Mg Hydrox/Simethicone (Aluminum/Magnesium Susp 30 Ml Udc) 30 ml PO Q4H PRN PRN Reason: GI Upset Stop: 11/21/22 05:13 Azelastine HCl (Azelastine Hcl 0.1% Nasal 200 Sprays/27,400 Mcg Btl) 1 sprays NA BID [facility] Stop: 11/22/22 11:59 Last Admin: 10/23/22 12:23 Dose: 1 sprays Benztropine Mesylate (Benztropine Mesylate 1 Mg Tab) 1 mg PO Q8 PRN PRN Reason: Muscle Spasm Stop: 11/22/22 11:43 Bismuth Subsalicylate (Bismuth Subsalicylate Liqd 236 Ml) 15 ml PO PRN PRN PRN Reason: Loose Stool Stop: 11/21/22 05:13 Cetirizine HCl (Cetirizine Hcl 10 Mg Tablet) 10 mg PO DAILY [facility] Stop: 11/22/22 11:59 Last Admin: 10/23/22 12:23 Dose: 10 mg Haloperidol (Haloperidol 5 Mg Tab) 2.5 mg PO BID [facility] Stop: 11/22/22 11:59 Last Admin: 10/23/22 11:59 Dose: 2.5 mg Hydroxyzine HCl (Hydroxyzine Hcl 25 Mg Tab) 50 mg PO HSZ PRN PRN Reason: Insomnia Stop: 11/21/22 05:13 Hydroxyzine HCl (Hydroxyzine Hcl 25 Mg Tab) 25 mg PO Q4H PRN PRN Reason: Anxiety Stop: 11/21/22 05:13 Lorazepam (Lorazepam 1 Mg Tab) 2 mg SL TID [facility] Stop: 11/21/22 20:59 Last Admin: 10/23/22 14:51 Dose: 2 mg Magnesium Hydroxide (Magnesium Hydroxide Susp 30 Ml Udc) 30 ml PO DAILY PRN PRN Reason: Constipation Stop: 11/21/22 05:13 Sodium Chloride (Sodium Chloride 0.65% Na Soln 45 Ml ([place])) 1 - 2 sprays NA PRN PRN PRN Reason: Nasal Dryness/Congestion Stop: 11/21/22 05:13
--- NOTE | 2022-10-23 15:56 | Psychiatric Progress Note ---
Date of Service October 23, 2022 Impression / Recommendations Impression 32 yo female with history of psychotic episodes, who presented to the hospital immediately prior to the current admission in a catatonic state. She remained catatonic initially, and continues to go in and out of catatonia periodically, as described above. Fortunately, the patient has responded to some degree to the addition of oral lorazepam, at least in terms of some improvement in her catatonia. However, what is observed today is that the patient has a number of paranoid delusions as well as a fairly pronounced thought disorder marked by fairly highly disorganized thinking. The patient does provide contradictory history. For example, when asked questions that might lead to an explanation for her urinary incontinence, the patient initially told me that she was just losing control of her bladder, with no burning on urination, no discoloration of her urine, and no foul odors. Later, she told me that she had a dark yellow "discharge" that was malodorous when she urinated approximately a week ago. There is a concern that the patient might have a urinary tract infection. However, her urinary incontinence may also be explained by the episodes of catatonia. Because the patient is unwilling to commit to take psychiatric medications as prescribed here in the hospital, because she periodically continues to demonstrate symptoms of catatonia (both with me and with other members of the treatment team), because of the intensity of the patient's psychotic features, because the patient lacks a great deal of insight and is largely confused, and because without psychiatric medication she is likely to remain a danger to herself if not treated with psychiatric medications, I do feel that she would meet criteria for medications over objection. It is noted that she is currently taking lorazepam as prescribed, and at present the patient is not issuing objections, but there is a decided potential for the patient to again become unwilling or unable to take psychiatric medications orally. Urina lysis has been ordered, but the sample has not yet been collected. I do suspect that the patient may have a urinary tract infection, and at this point she is not able to provide a reliable history. She has reportedly had at least 1 episode of urinary incontinence here on the unit, and she, herself, reports that she is had urinary incontinence off and on during the past week. I have ordered Bactrim DS 800 mg/160 mg to be taken every 12 hours, but only after the sample for the urinalysis has been collected. My overall impression is that the patient suffering from schizophrenia. It is noted that she is tearful and crying a great deal, and a coarse catatonia can also occur in major depression, but the patient's loose associations and the multiple paranoid delusional believes (which would not congruent with depression) seem to point in my opinion to schizophrenia. Inventory Assets Strengths: Intelligent. Appropriate social skills. Needs: Needs resolution of psychotic features. Requires resolution of catatonia catatonia. Suicide Risk Level Suicide Risk Level: Low (q15 min observation checks) Suicide Risk Level Comments: The patient reports that she is not having any thoughts of physically harming herself, and makes a contract to tell staff if she should have thoughts of harming herself. Risk Factors Assessment Male: No : Yes Do You Have Access To A Gun?: No Health Problems: Yes Mental Health Diagnoses: Yes Substance Use Disorders: No Previous Attempt: No Family History of Suicide: No Previous Psychiatric Hospitalization: Yes Hopelessness: No Interval History Identifying Information JONELLE RANDOLPH is a 32-year-old F who currently lives in [place] with brothers, has a history of catatonia and unspecified psychosis, and was admitted on 04:19 on a 302 involuntary commitment for inability to care for self, initially unresponsive due to presumed catatonia. Chief Complaint "I'm worried". Review of Systems Sleep Information Total Hours of Sleep: 5.5 Sleep Comments: Had difficulty sleeping; restless and wandering unit; attempted to read before falling asleep Meal Information Percent Meal Consumed - Breakfast: 0 Percent Meal Consumed - Lunch: 100 Percent Meal Consumed - Dinner: 0 Nutrition Comment: Pt is sleeping soundly.Trayed safed for later Subjective Subjective Patient was seen & assessed and interval progress reviewed with [treatment team] [nursing and social work] Physical Exam Vital Signs (Past 24 Hours) Last Vital Signs Temp 36.7 C 10/22/22 15:56 Pulse 69 10/22/22 15:56 Resp 16 10/22/22 15:56 BP 118/81 10/22/22 15:56 Pulse Ox 99 10/22/22 15:56 O2 Del Method Room Air 10/22/22 15:56 Results & Data ([facility]) Laboratory Results Laboratory Results - last 24 hr 10/23/22 10/23/22 10/23/22 09:50 09:50 09:50 WBC RBC Hgb Hct MCV MCH MCHC RDW Std Deviation RDW Coeff of Klarissa Plt Count MPV Immature Gran % (Auto) Neut % (Auto) Lymph % (Auto) [place] % (Auto) Eos % (Auto) Baso % (Auto) Neut # (Auto) Lymph # (Auto) [place] # (Auto) Eos # (Auto) Baso # (Auto) Immature Gran # (Auto) ESR 15 Sodium 140 Potassium 3.6 Chloride 109 H Carbon Dioxide 26 Anion Gap 5 BUN 6 Creatinine 0.48 L Est Cr Clr Drug Dosing Not Reportable Est GFR ( Amer) > 150.0 Est GFR (Non-Af Amer) 129.8 BUN/Creatinine Ratio 12.5 Glucose 78 Estimat Average Glucose Hemoglobin A1c Calcium 8.5 L C-Reactive Protein < 0.50 Triglycerides 91 Cholesterol 136 LDL Cholesterol, Calc 85 VLDL Cholesterol, Calc 18 HDL Cholesterol 33 Cholesterol/HDL Ratio 4.1 Lyme Disease IgG Ab Negative Lyme Disease IgM Ab Negative 10/23/22 10/23/22 09:50 09:50 WBC 7.45 RBC 4.05 L Hgb 11.7 L Hct 35.1 L MCV 86.7 MCH 28.9 MCHC 33.3 RDW Std Deviation 43.7 RDW Coeff of Klarissa 13.9 Plt Count 207 MPV 10.7 Immature Gran % (Auto) 0.1 Neut % (Auto) 52.6 Lymph % (Auto) 38.9 Overton % (Auto) 5.0 Eos % (Auto) 3.0 Baso % (Auto) 0.4 Neut # (Auto) 3.92 Lymph # (Auto) 2.90 [place]ton # (Auto) 0.37 Eos # (Auto) 0.22 Baso # (Auto) 0.03 Immature Gran # (Auto) 0.01 ESR Sodium Potassium Chloride Carbon Dioxide Anion Gap BUN Creatinine Est Cr Clr Drug Dosing Est GFR ( Amer) Est GFR (Non-Af Amer) BUN/Creatinine Ratio Glucose Estimat Average Glucose 103 Hemoglobin A1c 5.2 Calcium C-Reactive Protein Triglycerides Cholesterol LDL Cholesterol, Calc VLDL Cholesterol, Calc HDL Cholesterol Cholesterol/HDL Ratio Lyme Disease IgG Ab Lyme Disease IgM Ab Current Inpatient Medications Current Inpatient Medications: Current Inpatient Medications Acetaminophen (Acetaminophen 325 Mg Tab) 650 mg PO Q4H PRN PRN Reason: Headache or Minor Fever Stop: 11/21/22 05:13 Al Hydrox/Mg Hydrox/Simethicone (Aluminum/Magnesium Susp 30 Ml Udc) 30 ml PO Q4H PRN PRN Reason: GI Upset Stop: 11/21/22 05:13 Azelastine HCl (Azelastine Hcl 0.1% Nasal 200 Sprays/27,400 Mcg Btl) 1 sprays NA BID KIERAN Stop: 11/22/22 11:59 Last Admin: 10/23/22 12:23 Dose: 1 sprays Benztropine Mesylate (Benztropine Mesylate 1 Mg Tab) 1 mg PO Q8 PRN PRN Reason: Muscle Spasm Stop: 11/22/22 11:43 Bismuth Subsalicylate (Bismuth Subsalicylate Liqd 236 Ml) 15 ml PO PRN PRN PRN Reason: Loose Stool Stop: 11/21/22 05:13 Cetirizine HCl (Cetirizine Hcl 10 Mg Tablet) 10 mg PO DAILY [facility] Stop: 11/22/22 11:59 Last Admin: 10/23/22 12:23 Dose: 10 mg Haloperidol (Haloperidol 5 Mg Tab) 2.5 mg PO BID KIERAN Stop: 11/22/22 11:59 Last Admin: 10/23/22 11:59 Dose: 2.5 mg Hydroxyzine HCl (Hydroxyzine Hcl 25 Mg Tab) 50 mg PO HSZ PRN PRN Reason: Insomnia Stop: 11/21/22 05:13 Hydroxyzine HCl (Hydroxyzine Hcl 25 Mg Tab) 25 mg PO Q4H PRN PRN Reason: Anxiety Stop: 11/21/22 05:13 Lorazepam (Lorazepam 1 Mg Tab) 2 mg SL TID [facility] Stop: 11/21/22 20:59 Last Admin: 10/23/22 14:51 Dose: 2 mg Magnesium Hydroxide (Magnesium Hydroxide Susp 30 Ml Udc) 30 ml PO DAILY PRN PRN Reason: Constipation Stop: 11/21/22 05:13 Sodium Chloride (Sodium Chloride 0.65% Na Soln 45 Ml ([place])) 1 - 2 sprays NA PRN PRN PRN Reason: Nasal Dryness/Congestion Stop: 11/21/22 05:13 Trimethoprim/Sulfamethoxazole (Sulfamethoxazole/Trimethoprim Ds 800/160mg Tab) 1 tab PO Q12 [facility] Stop: 10/28/22 20:59
[2022-10-23] MEDS ORDERED: haloperidoL 5 MG TAB PO PRN (16:04)
[2022-10-23 18:46] LABS: Appearance Urine Clear (Clear); Bilirubin Urine Negative (Negative); Blood Urine Negative (Negative); Color Urine Yellow; Glucose Urine UA Negative (Negative); Ketones Urine Negative (Negative); Leukocyte Esterase Urine Negative (Negative); Nitrite Urine Negative (Negative); Protein Urine Negative (Negative); Specific Gravity Urine 1.009 (1.000-1.030); Urobilinogen Urine Negative (Negative)
[2022-10-23] MEDS ORDERED: SULFAMETHOXAZOLE/TRIMETHOPRIM DS 800/160MG TAB PO SCH (21:00)
[2022-10-24] MEDS: CETIRIZINE HCL 10 MG TABLET PO SCH ×2 (10:36→11:29)
[2022-10-24] MEDS: AZELASTINE HCL 0.1% NASAL 200 SPRAYS/27,400 MCG BTL SCH ×2 (10:36→20:54)
[2022-10-24] MEDS: LORazepam 1 MG TAB SL SCH ×4 (10:37→20:53)
[2022-10-24] MEDS: haloperidoL 5 MG TAB PO SCH ×4 (10:37→20:53)
--- NOTE | 2022-10-24 11:22 | Psychiatric Progress Note ---
Date of Service October 24, 2022 Impression / Recommendations Impression 32 yo female with history of psychotic episodes, primarily since COVID, suspect family minimizing severity of catatonia and/or her baseline functioning. It's very important never to minimize someone's trauma or potential for undiagnosed medical conditions but there is certainly concern that some of the incidents reported are delusions, seemingly shared with at least mother (tim jones). 10/24/22: intermittent catatonia and med compliance. Least likely to eat in am. (1) Schizophrenia: (2) Catatonia: (3) Risk of exposure to Lyme disease: Plan 10/24/22: 303 granted. Will offer Ativan and Haldol TID and track compliance/need for forced meds based on any regression as significant risk of dehydration. 10/23/22: patient agreed to resume Haldol 2.5 mg BID and continue scheduled Ativan. Dr. Watters did provide opinion for forced meds as she remains very disorganized and catatonia has been waxing/waning. Anticipating need for extended hospitalization petitioned for 303. 10/22/22: The patient was admitted to the [facility] ([facility] mental health unit) on q15 min checks (behavioral with suicide precautions) for safety. The patient will participate in group, recreational, and milieu therapies as improves and will be offered additional individual and family sessions as clinically appropriate. SL Ativan given and although still won't acknowledge staff or family on phone, did ambulate to toilet/change bedding. Will offer again pending 2nd opinion from Dr. Watters for forced medication. Reviewed with mother indication for 303 hearing as at risk for dehydration. In meantime, as no evidence of lyme titer and recent tic bite will check ESR, lyme titers, repeat lytes, etc in am. Suicide Risk Level Suicide Risk Level: Low (q15 min observation checks) Risk Factors Assessment Male: No : Yes Do You Have Access To A Gun?: No Health Problems: Yes Mental Health Diagnoses: Yes Substance Use Disorders: No Previous Attempt: No Family History of Suicide: No Previous Psychiatric Hospitalization: Yes Hopelessness: No Interval History Identifying Information JONELLE RANDOLPH is a 32-year-old F who currently lives in [place] with brothers, has a history of catatonia and unspecified psychosis, and was admitted on 04:19 on a 302 involuntary commitment for inability to care for self, initially unresponsive due to presumed catatonia.On 303 as of 10/24/22. Chief Complaint not responding Review of Systems Sleep Information Total Hours of Sleep: 7 Sleep Comments: Had difficulty sleeping; restless and wandering unit; attempted to read before falling asleep Meal Information Percent Meal Consumed - Breakfast: 0 Percent Meal Consumed - Lunch: 100 Percent Meal Consumed - Dinner: 100 Subjective Subjective Patient was seen & assessed and interval progress reviewed with treatment team. Patient was more visible on unit last pm, eating and talking about playing the organ. She was confused/disorganized throughout the day after she did become more responsive--had 4 episodes of incontinence, visible catatonia during meeting with Dr. Watters, etc. She did not understand the 303 hearing paperwork and thought she had legal charges/spoke with photoengraving proofer apprentice. As not responding again this am she was placed on speaker phone with unit nurse to listen to hearing, she did not speak. Physical Exam Psychiatric Orientation: alert Apperance: + disheveled Eye Contact: + poor eye contact (none, won't open eyes or follow commands) Motor Behavior: no abnormal motor movements Speech: + mute and normal rate/rhythm/volume of speech Affect: + flat affect Mood: + depressed mood (presumed, patient won't answer) Thought Process: + thought blocking and + looseness of associations Thought Content: + delusions (presumed, unable to assess) Suicidal Thoughts: denies suicidal thoughts Homicidal Thoughts: denies homicidal thoughts Hallucinations: no auditory hallucinations and no visual hallucinations Cognition: language grossly intact; + attention not intact Insight: + severely impaired insight Judgment: + severely impaired judgement Vital Signs (Past 24 Hours) Last Vital Signs Temp 36.7 C 10/22/22 15:56 Pulse 69 10/22/22 15:56 Resp 16 10/22/22 15:56 BP 118/81 10/22/22 15:56 Pulse Ox 99 10/22/22 15:56 O2 Del Method Room Air 10/22/22 15:56 Results & Data ([facility]) Laboratory Results Laboratory Results - last 24 hr 10/23/22 Unknown Urine Color Yellow Urine Appearance Clear Urine pH 8.0 H Ur Specific [place] 1.009 Urine Protein Negative Urine Glucose (UA) Negative Urine Ketones Negative Urine Blood Negative Urine Nitrite Negative Urine Bilirubin Negative Urine Urobilinogen Negative Ur Leukocyte Esterase Negative Current Inpatient Medications Current Inpatient Medications: Current Inpatient Medications Acetaminophen (Acetaminophen 325 Mg Tab) 650 mg PO Q4H PRN PRN Reason: Headache or Minor Fever Stop: 11/21/22 05:13 Al Hydrox/Mg Hydrox/Simethicone (Aluminum/Magnesium Susp 30 Ml Udc) 30 ml PO Q4H PRN PRN Reason: GI Upset Stop: 11/21/22 05:13 Azelastine HCl (Azelastine Hcl 0.1% Nasal 200 Sprays/27,400 Mcg Btl) 1 sprays NA BID KIERAN Stop: 11/22/22 11:59 Last Admin: 10/24/22 10:36 Dose: Not Given Benztropine Mesylate (Benztropine Mesylate 1 Mg Tab) 1 mg PO Q8 PRN PRN Reason: Muscle Spasm Stop: 11/22/22 11:43 Bismuth Subsalicylate (Bismuth Subsalicylate Liqd 236 Ml) 15 ml PO PRN PRN PRN Reason: Loose Stool Stop: 11/21/22 05:13 Cetirizine HCl (Cetirizine Hcl 10 Mg Tablet) 10 mg PO DAILY [facility] Stop: 11/22/22 11:59 Last Admin: 10/24/22 10:36 Dose: Not Given Haloperidol (Haloperidol 5 Mg Tab) 5 mg PO Q8 PRN PRN Reason: Agitation Stop: 11/22/22 16:03 Haloperidol (Haloperidol 0.5 Mg Tab) 2.5 mg PO TID KIERAN Stop: 11/23/22 13:59 Hydroxyzine HCl (Hydroxyzine Hcl 25 Mg Tab) 50 mg PO HSZ PRN PRN Reason: Insomnia Stop: 11/21/22 05:13 Lorazepam (Lorazepam 1 Mg Tab) 2 mg SL TID KIERAN Stop: 11/21/22 20:59 Last Admin: 10/24/22 10:37 Dose: Not Given Lorazepam (Lorazepam 1 Mg Tab) 1 mg PO Q6 PRN PRN Reason: Anxiety Stop: 11/22/22 16:03 Magnesium Hydroxide (Magnesium Hydroxide Susp 30 Ml Udc) 30 ml PO DAILY PRN PRN Reason: Constipation Stop: 11/21/22 05:13 Sodium Chloride (Sodium Chloride 0.65% Na Soln 45 Ml ([place])) 1 - 2 sprays NA PRN PRN PRN Reason: Nasal Dryness/Congestion Stop: 11/21/22 05:13
--- NOTE | 2022-10-25 11:47 | Psychiatric Progress Note ---
Date of Service October 25, 2022 Impression / Recommendations Impression 32 yo female with history of psychotic episodes, primarily since COVID, suspect family minimizing severity of catatonia and/or her baseline functioning. It's very important never to minimize someone's trauma or potential for undiagnosed medical conditions but there is certainly concern that some of the incidents reported are delusions, seemingly shared with at least mother (tim jones). 10/25/22: intermittent catatonia and med compliance but did receive 4 mg total daily dose Ativan and 7.5 mg Haldol with no EPS, more organized with toileting and some beginnings of social interactions. (1) Schizophrenia: (2) Catatonia: (3) Risk of exposure to Lyme disease: Plan 10/25/22: shift Ativan to hs only since may be sedating now that not as catatonic and/or in combination with Haldol. Will shift Haldol to 2.5 mg midday and 5 mg po qhs (suspect sleep phase shift so closer to home routine). 10/24/22: 303 granted. Will offer Ativan and Haldol TID and track compliance/need for forced meds based on any regression as significant risk of dehydration. 10/23/22: patient agreed to resume Haldol 2.5 mg BID and continue scheduled Ativan. Dr. Watters did provide opinion for forced meds as she remains very disorganized and catatonia has been waxing/waning. Anticipating need for extended hospitalization petitioned for 303. 10/22/22: The patient was admitted to the [facility] ([facility] mental health unit) on q15 min checks (behavioral with suicide precautions) for safety. The patient will participate in group, recreational, and milieu therapies as improves and will be offered additional individual and family sessions as clinically appropriate. SL Ativan given and although still won't acknowledge staff or family on phone, did ambulate to toilet/change bedding. Will offer again pending 2nd opinion from Dr. Watters for forced medication. Reviewed with mother indication for 303 hearing as at risk for dehydration. In meantime, as no evidence of lyme titer and recent tic bite will check ESR, lyme titers, repeat lytes, etc in am. Suicide Risk Level Suicide Risk Level: Low (q15 min observation checks) Risk Factors Assessment Male: No : Yes Do You Have Access To A Gun?: No Health Problems: Yes Mental Health Diagnoses: Yes Substance Use Disorders: No Previous Attempt: No Family History of Suicide: No Previous Psychiatric Hospitalization: Yes Hopelessness: No Interval History Identifying Information JONELLE RANDOLPH is a 32-year-old F who currently lives in [place] with brothers, has a history of catatonia and unspecified psychosis, and was admitted on 04:19 on a 302 involuntary commitment for inability to care for self, initially unresponsive due to presumed catatonia.On 303 as of 10/24/22. Chief Complaint intermittent catatonia Review of Systems Sleep Information Total Hours of Sleep: 6.75 Sleep Comments: Had difficulty sleeping; restless and wandering unit; attempted to read before falling asleep Meal Information Percent Meal Consumed - Breakfast: 0 Percent Meal Consumed - Lunch: 100 Percent Meal Consumed - Dinner: 0 Nutrition Comment: Pt is sleeping soundly.Trayed safed for later Subjective Subjective Patient was seen & assessed and interval progress reviewed with nursing and social work. Patient tends to be unresponsive due to catatonia in am, was irritably following hearing yesterday, slept much of afternoon/evening and then had difficulty sleeping at night. When OOB in afternoon/evening as been eating, some interactions with peers or paging through books not seeming to read them. No incontinence yesterday. Physical Exam Psychiatric in bed, will not open eyes/converse. Will reassess when interacting in the milieu and/or consider med over objection. Vital Signs (Past 24 Hours) Last Vital Signs Temp 36.7 C 10/22/22 15:56 Pulse 69 10/22/22 15:56 Resp 16 10/22/22 15:56 BP 118/81 10/22/22 15:56 Pulse Ox 99 10/22/22 15:56 O2 Del Method Room Air 10/22/22 15:56 Results & Data ([facility]) Current Inpatient Medications Current Inpatient Medications: Current Inpatient Medications Acetaminophen (Acetaminophen 325 Mg Tab) 650 mg PO Q4H PRN PRN Reason: Headache or Minor Fever Stop: 11/21/22 05:13 Al Hydrox/Mg Hydrox/Simethicone (Aluminum/Magnesium Susp 30 Ml Udc) 30 ml PO Q4H PRN PRN Reason: GI Upset Stop: 11/21/22 05:13 Azelastine HCl (Azelastine Hcl 0.1% Nasal 200 Sprays/27,400 Mcg Btl) 1 sprays NA BID KIERAN Stop: 11/22/22 11:59 Last Admin: 10/24/22 20:54 Dose: 1 sprays Benztropine Mesylate (Benztropine Mesylate 1 Mg Tab) 1 mg PO Q8 PRN PRN Reason: Muscle Spasm Stop: 11/22/22 11:43 Bismuth Subsalicylate (Bismuth Subsalicylate Liqd 236 Ml) 15 ml PO PRN PRN PRN Reason: Loose Stool Stop: 11/21/22 05:13 Cetirizine HCl (Cetirizine Hcl 10 Mg Tablet) 10 mg PO DAILY [facility] Stop: 11/22/22 11:59 Last Admin: 10/24/22 11:29 Dose: 10 mg Haloperidol (Haloperidol 5 Mg Tab) 5 mg PO Q8 PRN PRN Reason: Agitation Stop: 11/22/22 16:03 Haloperidol (Haloperidol 5 Mg Tab) 2.5 mg PO TID KIERAN Stop: 11/23/22 13:59 Last Admin: 10/24/22 20:53 Dose: 2.5 mg Hydroxyzine HCl (Hydroxyzine Hcl 25 Mg Tab) 50 mg PO HSZ PRN PRN Reason: Insomnia Stop: 11/21/22 05:13 Last Admin: 10/25/22 00:47 Dose: 50 mg Lorazepam (Lorazepam 1 Mg Tab) 1 mg PO Q6 PRN PRN Reason: Anxiety Stop: 11/22/22 16:03 Lorazepam (Lorazepam 1 Mg Tab) 2 mg PO HS KIERAN Stop: 11/24/22 21:59 Magnesium Hydroxide (Magnesium Hydroxide Susp 30 Ml Udc) 30 ml PO DAILY PRN PRN Reason: Constipation Stop: 11/21/22 05:13 Sodium Chloride (Sodium Chloride 0.65% Na Soln 45 Ml ([place] Sol[place])) 1 - 2 sprays NA PRN PRN PRN Reason: Nasal Dryness/Congestion Stop: 11/21/22 05:13
[2022-10-25] MEDS: haloperidoL 5 MG TAB PO SCH ×3 (12:45→22:59)
[2022-10-25] MEDS: LORazepam 1 MG TAB PO PRN (12:46)
[2022-10-25] MEDS: AZELASTINE HCL 0.1% NASAL 200 SPRAYS/27,400 MCG BTL SCH ×2 (21:35→22:59)
[2022-10-25] MEDS: CETIRIZINE HCL 10 MG TABLET PO SCH ×2 (21:36→22:59)
[2022-10-25] MEDS ORDERED: LORazepam 1 MG TAB PO SCH (22:00)
[2022-10-26] MEDS ORDERED: haloperidoL 5 MG TAB PO SCH (12:00)
--- NOTE | 2022-10-26 12:12 | Psychiatric Progress Note ---
Date of Service October 26, 2022 Impression / Recommendations Impression 32 yo female with history of psychotic episodes, primarily since COVID, suspect family minimizing severity of catatonia and/or her baseline functioning. It's very important never to minimize someone's trauma or potential for undiagnosed medical conditions but there is certainly concern that some of the incidents reported are delusions, seemingly shared with at least mother (tim jones). 10/26/22: med compliance good but consolidated to hs, resolving catatonia. (1) Schizophrenia: (2) Catatonia: (3) Risk of exposure to Lyme disease: Plan 10/26/22: d/c midday dose of Haldol, taper hs dose of Ativan to 1 mg. 10/25/22: shift Ativan to hs only since may be sedating now that not as catatonic and/or in combination with Haldol. Will shift Haldol to 2.5 mg midday and 5 mg po qhs (suspect sleep phase shift so closer to home routine). 10/24/22: 303 granted. Will offer Ativan and Haldol TID and track compliance/need for forced meds based on any regression as significant risk of dehydration. 10/23/22: patient agreed to resume Haldol 2.5 mg BID and continue scheduled Ativan. Dr. Watters did provide opinion for forced meds as she remains very disorganized and catatonia has been waxing/waning. Anticipating need for extended hospitalization petitioned for 303. 10/22/22: The patient was admitted to the [facility] ([facility] mental health unit) on q15 min checks (behavioral with suicide precautions) for safety. The patient will participate in group, recreational, and milieu therapies as improves and will be offered additional individual and family sessions as clinically appropriate. SL Ativan given and although still won't acknowledge staff or family on phone, did ambulate to toilet/change bedding. Will offer again pending 2nd opinion from Dr. Watters for forced medication. Reviewed with mother indication for 303 hearing as at risk for dehydration. In meantime, as no evidence of lyme titer and recent tic bite will check ESR, lyme titers, repeat lytes, etc in am. Suicide Risk Level Suicide Risk Level: Low (q15 min observation checks) Risk Factors Assessment Male: No : Yes Do You Have Access To A Gun?: No Health Problems: Yes Mental Health Diagnoses: Yes Substance Use Disorders: No Previous Attempt: No Family History of Suicide: No Previous Psychiatric Hospitalization: Yes Hopelessness: No Interval History Identifying Information JONELLE RANDOLPH is a 32-year-old F who currently lives in [place] with brothers, has a history of catatonia and unspecified psychosis, and was admitted on 04:19 on a 302 involuntary commitment for inability to care for self, initially unresponsive due to presumed catatonia.On 303 as of 10/24/22. Chief Complaint anergia vs. catatonia Review of Systems Sleep Information Total Hours of Sleep: 7 Sleep Comments: Had difficulty sleeping; restless and wandering unit; attempted to read before falling asleep Meal Information Percent Meal Consumed - Breakfast: 0 Percent Meal Consumed - Lunch: 100 Percent Meal Consumed - Dinner: 100 Nutrition Comment: Pt is sleeping soundly.Trayed safed for later Subjective Subjective Patient was seen & assessed and interval progress reviewed with treatment team. Patient slept much of day yesterday despite decrease in medication. Less interactive yet at same time was less delusional yet still very disorganized. Staff deny EPS, gait is steadier with shifting Ativan to hs. Was keeping seeds from an organe in her room to watch what they'd do and really couldn't explain. Unclear what her baseline functioning is as presents very childlike, no reported hx of ID. Physical Exam Psychiatric patient is disheveled, won't open eyes though appeared to reposition to cover her face. Unable to assess thought processes on several attempts Vital Signs (Past 24 Hours) Last Vital Signs Temp 36.6 C 10/26/22 06:00 Pulse 69 10/26/22 06:00 Resp 16 10/26/22 06:00 BP 113/74 10/26/22 06:00 Pulse Ox 99 10/26/22 06:00 O2 Del Method Room Air 10/26/22 06:00 Results & Data ([facility]) Current Inpatient Medications Current Inpatient Medications: Current Inpatient Medications Acetaminophen (Acetaminophen 325 Mg Tab) 650 mg PO Q4H PRN PRN Reason: Headache or Minor Fever Stop: 11/21/22 05:13 Al Hydrox/Mg Hydrox/Simethicone (Aluminum/Magnesium Susp 30 Ml Udc) 30 ml PO Q4H PRN PRN Reason: GI Upset Stop: 11/21/22 05:13 Azelastine HCl (Azelastine Hcl 0.1% Nasal 200 Sprays/27,400 Mcg Btl) 1 sprays NA HS [facility] Stop: 11/24/22 21:59 Last Admin: 10/25/22 21:35 Dose: 1 sprays Benztropine Mesylate (Benztropine Mesylate 1 Mg Tab) 1 mg PO Q8 PRN PRN Reason: Muscle Spasm Stop: 11/22/22 11:43 Bismuth Subsalicylate (Bismuth Subsalicylate Liqd 236 Ml) 15 ml PO PRN PRN PRN Reason: Loose Stool Stop: 11/21/22 05:13 Cetirizine HCl (Cetirizine Hcl 10 Mg Tablet) 10 mg PO HS [facility] Stop: 11/24/22 21:59 Last Admin: 10/25/22 21:36 Dose: 10 mg Haloperidol (Haloperidol 5 Mg Tab) 5 mg PO Q8 PRN PRN Reason: Agitation Stop: 11/22/22 16:03 Haloperidol (Haloperidol 5 Mg Tab) 5 mg PO HS [facility] Stop: 11/24/22 21:59 Last Admin: 10/25/22 21:36 Dose: 5 mg Hydroxyzine HCl (Hydroxyzine Hcl 25 Mg Tab) 50 mg PO HSZ PRN PRN Reason: Insomnia Stop: 11/21/22 05:13 Last Admin: 10/25/22 00:47 Dose: 50 mg Lorazepam (Lorazepam 1 Mg Tab) 1 mg PO Q6 PRN PRN Reason: Anxiety Stop: 11/22/22 16:03 Last Admin: 10/25/22 12:46 Dose: 1 mg Lorazepam (Lorazepam 1 Mg Tab) 1 mg PO HS [facility] Stop: 11/25/22 21:59 Magnesium Hydroxide (Magnesium Hydroxide Susp 30 Ml Udc) 30 ml PO DAILY PRN PRN Reason: Constipation Stop: 11/21/22 05:13 Sodium Chloride (Sodium Chloride 0.65% Na Soln 45 Ml (Ashley)) 1 - 2 sprays NA PRN PRN PRN Reason: Nasal Dryness/Congestion Stop: 11/21/22 05:13
[2022-10-26] MEDS: LORazepam 1 MG TAB PO PRN ×2 (13:49→19:58)
[2022-10-26] MEDS: haloperidoL 5 MG TAB PO SCH ×2 (15:32→21:42)
[2022-10-26] MEDS: CETIRIZINE HCL 10 MG TABLET PO SCH (21:42)
[2022-10-26] MEDS: AZELASTINE HCL 0.1% NASAL 200 SPRAYS/27,400 MCG BTL SCH (21:42)
[2022-10-26] MEDS ORDERED: LORazepam 1 MG TAB PO SCH (22:00)
--- NOTE | 2022-10-27 09:39 | Psychiatric Progress Note ---
Date of Service October 27, 2022 Impression / Recommendations Impression 32 yo female with history of psychotic episodes, primarily since COVID, suspect family minimizing severity of catatonia and/or her baseline functioning. Diagnostically seems most consistent with schizophrenia with likely hypoactive catatonia. 10/27/22: concern for worsening catatonia, still with symptoms of acute psychosis when out of her bed. Will increase ativan to address catatonia c oncerns. Continue with haldol. Some evidence for hirsutism, unclear if history of PCOS or hyperprolactinemia. No evidence for recent risperidone use but would be reason to avoid risperidone in favor of other antipsychotics if possible. If PCOS is present then haldol may be additionally preferred over atypical antipsychotics given potential for pre-existing insulin resistance though current fasting glucose and HbA1c reassuring. Overall, I spent a total of 60 minutes with this case including review of chart records, review of labwork, direct evaluation of the patient at bedside, counseling the patient, ordering medication, discussion of the patient with the treatment team and documentation in the electronic health record. (1) Schizophrenia: (2) Catatonia: (3) Risk of exposure to Lyme disease: Plan 10/27/22: Increase ativan to 1mg TID SL for catatonia, continue with haldol 5mg HS. 10/26/22: d/c midday dose of Haldol, taper hs dose of Ativan to 1 mg. 10/25/22: shift Ativan to hs only since may be sedating now that not as catatonic and/or in combination with Haldol. Will shift Haldol to 2.5 mg midday and 5 mg po qhs (suspect sleep phase shift so closer to home routine). 10/24/22: 303 granted. Will offer Ativan and Haldol TID and track compliance/need for forced meds based on any regression as significant risk of dehydration. 10/23/22: patient agreed to resume Haldol 2.5 mg BID and continue scheduled Ativan. Dr. Watters did provide opinion for forced meds as she remains very disorganized and catatonia has been waxing/waning. Anticipating need for extended hospitalization petitioned for 303. 10/22/22: The patient was admitted to the [facility] ([facility] mental health unit) on q15 min checks (behavioral with suicide precautions) for safety. The patient will participate in group, recreational, and milieu therapies as improves and will be offered additional individual and family sessions as clinically appropriate. SL Ativan given and although still won't acknowledge staff or family on phone, did ambulate to toilet/change bedding. Will offer again pending 2nd opinion from Dr. Watters for forced medication. Reviewed with mother indication for 303 hearing as at risk for dehydration. In meantime, as no evidence of lyme titer and recent tic bite will check ESR, lyme titers, repeat lytes, etc in am. Suicide Risk Level Suicide Risk Level: Low (q15 min observation checks) Suicide Risk Level Comments: has not endorsed any SI prior to or during her stay but with acute psychosis and unclear if having any auditory hallucinations. Risk Factors Assessment Male: No : Yes Do You Have Access To A Gun?: No Health Problems: Yes Mental Health Diagnoses: Yes Substance Use Disorders: No Previous Attempt: No Family History of Suicide: No Previous Psychiatric Hospitalization: Yes Hopelessness: No Interval History Identifying Information JONELLE RANDOLPH is a 32-year-old F who currently lives in [place] with brothers, has a history of catatonia and unspecified psychosis, and was admitted on 04:19 on a 302 involuntary commitment for inability to care for self, initially unresponsive due to presumed catatonia.On 303 as of 10/24/22. Chief Complaint mute Review of Systems Sleep Information Total Hours of Sleep: 6.30 Sleep Comments: Meal Information Percent Meal Consumed - Breakfast: 0 Percent Meal Consumed - Lunch: 100 Percent Meal Consumed - Dinner: 100 Nutrition Comment: Pt is sleeping soundly.Trayed safed for later Subjective Subjective Patient was seen & assessed and interval progress reviewed with treatment team nursing and social work. Responding to internal stimuli, walking around the unit last evening. Very tearful last night, got prn dose of ativan. This morning remained in bed most of the morning, not easily waking. Assessed her bedside along with nursing and she agreed to take ativan and about 1 hour later then got out of bed and ate lunch before returning to her room. Moving slowly. Not making eye contact. Physical Exam Psychiatric Orientation: alert and + guarded Apperance: appropriately dressed and + disheveled Eye Contact: + poor eye contact Motor Behavior: + psychomotor retardation Speech: + mute Affect: + flat affect Thought Process: + thought blocking Insight: + limited insight Judgment: + severely impaired judgement Vital Signs (Past 24 Hours) Last Vital Signs Temp 37.0 C 10/27/22 06:00 Pulse 80 10/27/22 06:00 Resp 16 10/27/22 06:00 BP 81/52 L 10/27/22 06:34 Pulse Ox 97 10/27/22 06:00 O2 Del Method Room Air 10/27/22 06:00 Results & Data ([facility]) Current Inpatient Medications Current Inpatient Medications: Current Inpatient Medications Acetaminophen (Acetaminophen 325 Mg Tab) 650 mg PO Q4H PRN PRN Reason: Headache or Minor Fever Stop: 11/21/22 05:13 Al Hydrox/Mg Hydrox/Simethicone (Aluminum/Magnesium Susp 30 Ml Udc) 30 ml PO Q4H PRN PRN Reason: GI Upset Stop: 11/21/22 05:13 Azelastine HCl (Azelastine Hcl 0.1% Nasal 200 Sprays/27,400 Mcg Btl) 1 sprays NA HS [facility] Stop: 11/24/22 21:59 Last Admin: 10/26/22 21:42 Dose: 1 sprays Benztropine Mesylate (Benztropine Mesylate 1 Mg Tab) 1 mg PO Q8 PRN PRN Reason: Muscle Spasm Stop: 11/22/22 11:43 Bismuth Subsalicylate (Bismuth Subsalicylate Liqd 236 Ml) 15 ml PO PRN PRN PRN Reason: Loose Stool Stop: 11/21/22 05:13 Cetirizine HCl (Cetirizine Hcl 10 Mg Tablet) 10 mg PO HS [facility] Stop: 11/24/22 21:59 Last Admin: 10/26/22 21:42 Dose: 10 mg Haloperidol (Haloperidol 5 Mg Tab) 5 mg PO Q8 PRN PRN Reason: Agitation Stop: 11/22/22 16:03 Haloperidol (Haloperidol 5 Mg Tab) 5 mg PO HS [facility] Stop: 11/24/22 21:59 Last Admin: 10/26/22 21:42 Dose: 5 mg Hydroxyzine HCl (Hydroxyzine Hcl 25 Mg Tab) 50 mg PO HSZ PRN PRN Reason: Insomnia Stop: 11/21/22 05:13 Last Admin: 10/25/22 00:47 Dose: 50 mg Lorazepam (Lorazepam 1 Mg Tab) 1 mg PO Q6 PRN PRN Reason: Anxiety Stop: 11/22/22 16:03 Last Admin: 10/26/22 19:58 Dose: 1 mg Lorazepam (Lorazepam 1 Mg Tab) 1 mg PO HS [facility] Stop: 11/25/22 21:59 Last Admin: 10/26/22 21:42 Dose: 1 mg Magnesium Hydroxide (Magnesium Hydroxide Susp 30 Ml Udc) 30 ml PO DAILY PRN PRN Reason: Constipation Stop: 11/21/22 05:13 Sodium Chloride (Sodium Chloride 0.65% Na Soln 45 Ml ([place])) 1 - 2 sprays NA PRN PRN PRN Reason: Nasal Dryness/Congestion Stop: 11/21/22 05:13
[2022-10-27] MEDS: LORazepam 1 MG TAB PO PRN (10:09)
[2022-10-27] MEDS: LORazepam 1 MG TAB SL SCH ×2 (14:52→21:25)
[2022-10-27] MEDS: CETIRIZINE HCL 10 MG TABLET PO SCH (21:25)
[2022-10-27] MEDS: AZELASTINE HCL 0.1% NASAL 200 SPRAYS/27,400 MCG BTL SCH (21:25)
[2022-10-27] MEDS: haloperidoL 5 MG TAB PO SCH (21:25)
--- NOTE | 2022-10-28 09:15 | Psychiatric Progress Note ---
Date of Service October 28, 2022 Impression / Recommendations Impression 32 yo female with history of psychotic episodes, primarily since COVID, suspect family minimizing severity of catatonia and/or her baseline functioning. Diagnostically seems most consistent with schizophrenia with likely hypoactive catatonia. 10/28/22: moving more today and talking more suggestive of ongoing catatonia which seems to be responding better to higher dose of ativan, will avoid further dose escalation as previously showed signs of gait changes with ativan 2mg TID. Ongoing delusions but less isolative today. Overall, I spent a total of 40 minutes with this case including review of chart records, direct evaluation at bedside, counseling, discussion of the patient with the treatment team and documentation in the electronic health record. (1) Schizophrenia: (2) Catatonia: (3) Risk of exposure to Lyme disease: Plan 10/28/2022: Continue with ativan 1mg TID and haldol 5mg HS 10/27/22: Increase ativan to 1mg TID SL for catatonia, continue with haldol 5mg HS. 10/26/22: d/c midday dose of Haldol, taper hs dose of Ativan to 1 mg. 10/25/22: shift Ativan to hs only since may be sedating now that not as catatonic and/or in combination with Haldol. Will shift Haldol to 2.5 mg midday and 5 mg po qhs (suspect sleep phase shift so closer to home routine). 10/24/22: 303 granted. Will offer Ativan and Haldol TID and track compliance/need for forced meds based on any regression as significant risk of dehydration. 10/23/22: patient agreed to resume Haldol 2.5 mg BID and continue scheduled Ativan. Dr. Watters did provide opinion for forced meds as she remains very disorganized and catatonia has been waxing/waning. Anticipating need for extended hospitalization petitioned for 303. 10/22/22: The patient was admitted to the [facility] ([facility] inpatient mental health unit) on q15 min checks (behavioral with suicide precautions) for safety. The patient will participate in group, recreational, and milieu therapies as improves and will be offered additional individual and family sessions as clinically appropriate. SL Ativan given and although still won't acknowledge staff or family on phone, did ambulate to toilet/change bedding. Will offer again pending 2nd opinion from Dr. Watters for forced medication. Reviewed with mother indication for 303 hearing as at risk for dehydration. In meantime, as no evidence of lyme titer and recent tic bite will check ESR, lyme titers, repeat lytes, etc in am. Suicide Risk Level Suicide Risk Level: Low (q15 min observation checks) Suicide Risk Level Comments: has not endorsed any SI prior to or during her stay but with acute psychosis and unclear if having any auditory hallucinations. Risk Factors Assessment Male: No : Yes Do You Have Access To A Gun?: No Health Problems: Yes Mental Health Diagnoses: Yes Substance Use Disorders: No Previous Attempt: No Family History of Suicide: No Previous Psychiatric Hospitalization: Yes Hopelessness: No Interval History Identifying Information JONELLE RANDOLPH is a 32-year-old F who currently lives in [place] with brothers, has a history of catatonia and unspecified psychosis, and was admitted on 04:19 on a 302 involuntary commitment for inability to care for self, initially unresponsive due to presumed catatonia.On 303 as of 10/24/22. Chief Complaint "The parasites are from multiple different sources". Review of Systems Sleep Information Total Hours of Sleep: 6.75 Meal Information Percent Meal Consumed - Breakfast: 0 Percent Meal Consumed - Lunch: 100 Percent Meal Consumed - Dinner: 100 Nutrition Comment: Pt is sleeping soundly.Trayed safed for later Subjective Subjective Patient was seen & assessed and interval progress reviewed with treatment team nursing and social work. Slept after lunch then emerged from her room for dinner, ate dinner and then stayed in the dayroom and flipped through a book and then got on the exercise bike. She talked briefly with the RN and talked with her aunt on the phone. She seemed to be talking appropriately on the phone and showed some improved affect with laughing. But then later in the evening she talked on the phone with her mother and seemed to be more delusional afterwards and seemed upset. Slept through morning but then awake and moving more easily and engaging more. Tells me she has been dealing with "trigger finger" to her left hand which has caused some pain over recent weeks/months. Thinks she may need a cortisone shot in the future, agrees to try tylenol if pain becomes bothersome while here. Discussing watching a TV show "Monsters Inside me" and relating to one of the people who described having a parasitic infection. She notes this was "just like what I have" and she has since observed a parasite in her "salivary glands" and shows me where she thinks one might be in her leg due to "white dots" on the skin of her leg. I did not appreciate any changes to the skin or leg where she shows me. She would like help getting these parasites out and tells me about the scientific name and that such parasites are used for "pigs blood anesthesia" and "hong [place]onger ladybugs". She denies any medication side effects. Physical Exam Psychiatric Orientation: alert, oriented to person and oriented to place Apperance: appropriately dressed and + disheveled Eye Contact: + fair eye contact Motor Behavior: + psychomotor retardation (moves slowly but moving more easily today); n EPS Speech: normal rate/rhythm/volume of speech Affect: + flat affect Mood: + anxious mood Thought Process: + circumstantial thought process Thought Content: + delusions Suicidal Thoughts: denies suicidal thoughts Homicidal Thoughts: denies homicidal thoughts Hallucinations: + auditory hallucinations (seems to be responding at times) and + tactile hallucinations (possible related to concerns about parasites ) Insight: + limited insight Judgment: + severely impaired judgement Vital Signs (Past 24 Hours) Last Vital Signs Temp 36.5 C 10/28/22 06:30 Pulse 62 10/28/22 06:30 Resp 16 10/28/22 06:30 BP 90/62 L 10/28/22 06:30 Pulse Ox 97 10/27/22 06:00 O2 Del Method Room Air 10/27/22 06:00 Results & Data ([facility]) Current Inpatient Medications Current Inpatient Medications: Current Inpatient Medications Acetaminophen (Acetaminophen 325 Mg Tab) 650 mg PO Q4H PRN PRN Reason: Headache or Minor Fever Stop: 11/21/22 05:13 Al Hydrox/Mg Hydrox/Simethicone (Aluminum/Magnesium Susp 30 Ml Udc) 30 ml PO Q4H PRN PRN Reason: GI Upset Stop: 11/21/22 05:13 Azelastine HCl (Azelastine Hcl 0.1% Nasal 200 Sprays/27,400 Mcg Btl) 1 sprays NA HS [facility] Stop: 11/24/22 21:59 Last Admin: 10/27/22 21:25 Dose: 1 sprays Benztropine Mesylate (Benztropine Mesylate 1 Mg Tab) 1 mg PO Q8 PRN PRN Reason: Muscle Spasm Stop: 11/22/22 11:43 Bismuth Subsalicylate (Bismuth Subsalicylate Liqd 236 Ml) 15 ml PO PRN PRN PRN Reason: Loose Stool Stop: 11/21/22 05:13 Cetirizine HCl (Cetirizine Hcl 10 Mg Tablet) 10 mg PO HS [facility] Stop: 11/24/22 21:59 Last Admin: 10/27/22 21:25 Dose: 10 mg Haloperidol (Haloperidol 5 Mg Tab) 5 mg PO Q8 PRN PRN Reason: Agitation Stop: 11/22/22 16:03 Haloperidol (Haloperidol 5 Mg Tab) 5 mg PO HS [facility] Stop: 11/24/22 21:59 Last Admin: 10/27/22 21:25 Dose: 5 mg Hydroxyzine HCl (Hydroxyzine Hcl 25 Mg Tab) 50 mg PO HSZ PRN PRN Reason: Insomnia Stop: 11/21/22 05:13 Last Admin: 10/25/22 00:47 Dose: 50 mg Lorazepam (Lorazepam 1 Mg Tab) 1 mg PO Q6 PRN PRN Reason: Anxiety Stop: 11/22/22 16:03 Last Admin: 10/27/22 10:09 Dose: 1 mg Lorazepam (Lorazepam 1 Mg Tab) 1 mg SL TID [facility] Stop: 11/26/22 13:59 Last Admin: 10/27/22 21:25 Dose: 1 mg Magnesium Hydroxide (Magnesium Hydroxide Susp 30 Ml Udc) 30 ml PO DAILY PRN PRN Reason: Constipation Stop: 11/21/22 05:13 Sodium Chloride (Sodium Chloride 0.65% Na Soln 45 Ml ([place])) 1 - 2 sprays NA PRN PRN PRN Reason: Nasal Dryness/Congestion Stop: 11/21/22 05:13
[2022-10-28] MEDS: LORazepam 1 MG TAB SL SCH ×3 (11:08→21:01)
[2022-10-28] MEDS: haloperidoL 5 MG TAB PO SCH (21:01)
[2022-10-28] MEDS: AZELASTINE HCL 0.1% NASAL 200 SPRAYS/27,400 MCG BTL SCH (21:01)
[2022-10-28] MEDS: CETIRIZINE HCL 10 MG TABLET PO SCH (21:01)
--- NOTE | 2022-10-29 08:44 | Psychiatric Progress Note ---
Date of Service October 29, 2022 Impression / Recommendations Impression 32 yo female with history of psychotic episodes, primarily since COVID, suspect family minimizing severity of catatonia and/or her baseline functioning. Diagnostically seems most consistent with schizophrenia with likely hypoactive catatonia. 10/29/22: catatonia improving significantly now that she is back on higher dose of ativan, will continue with this to ensure lasting progress. Interacting more but still with limited insight and delusions. Overall, I spent a total of 45 minutes with this case including review of chart records, direct evaluation at bedside, counseling, discussion of the patient with the treatment team and documentation in the electronic health record. (1) Schizophrenia: (2) Catatonia: (3) Risk of exposure to Lyme disease: Plan 10/29/2022: Continue with current medications and tx plan. 10/28/2022: Continue with ativan 1mg TID and haldol 5mg HS 10/27/22: Increase ativan to 1mg TID SL for catatonia, continue with haldol 5mg HS. 10/26/22: d/c midday dose of Haldol, taper hs dose of Ativan to 1 mg. 10/25/22: shift Ativan to hs only since may be sedating now that not as catatonic and/or in combination with Haldol. Will shift Haldol to 2.5 mg midday and 5 mg po qhs (suspect sleep phase shift so closer to home routine). 10/24/22: 303 granted. Will offer Ativan and Haldol TID and track compli ance/need for forced meds based on any regression as significant risk of dehydration. 10/23/22: patient agreed to resume Haldol 2.5 mg BID and continue scheduled Ativan. Dr. Watters did provide opinion for forced meds as she remains very disorganized and catatonia has been waxing/waning. Anticipating need for extended hospitalization petitioned for 303. 10/22/22: The patient [facility] on q15 min checks (behavioral with suicide precautions) for safety. The patient will participate in group, recreational, and milieu therapies as improves and will be offered additional individual and family sessions as clinically appropriate. SL Ativan given and although still won't acknowledge staff or family on phone, did ambulate to toilet/change bedding. Will offer again pending 2nd opinion from Dr. Watters for forced medication. Reviewed with mother indication for 303 hearing as at risk for dehydration. In meantime, as no evidence of lyme titer and recent tic bite will check ESR, lyme titers, repeat lytes, etc in am. Suicide Risk Level Suicide Risk Level: Low (q15 min observation checks) Suicide Risk Level Comments: has not endorsed any SI prior to or during her stay but with acute psychosis and unclear if having any auditory hallucinations. Risk Factors Assessment Male: No : Yes Do You Have Access To A Gun?: No Health Problems: Yes Mental Health Diagnoses: Yes Substance Use Disorders: No Previous Attempt: No Family History of Suicide: No Previous Psychiatric Hospitalization: Yes Hopelessness: No Interval History Identifying Information RAIZA RANDOLPH is a 32-year-old F who currently lives in [place] with brothers, has a history of catatonia and unspecified psychosis, and was admitted on 04:19 on a 302 involuntary commitment for inability to care for self, initially unresponsive due to presumed catatonia.On 303 as of 10/24/22. Chief Complaint "Alright". Review of Systems Sleep Information Total Hours of Sleep: 6.0 Meal Information Percent Meal Consumed - Breakfast: 0 Percent Meal Consumed - Lunch: 100 Percent Meal Consumed - Dinner: 100 Nutrition Comment: Pt is sleeping soundly.Trayed safed for later Subjective Subjective Patient was seen & assessed and interval progress reviewed with treatment team nursing and social work. Continued to move more easily and was much more engaged throughout yesterday evening after getting ongoing scheduled lorazepam. 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 Was able to play a card game with RN yesterday. Today slept in again but woke up much more easily and then stayed out of her room and spoke with RN and later with me for extended period of time. She reports her mood is "alright". Denies any medication side effects. notes that many in her family "don't believe in mental health or psychiatrists". She agrees with possible catatonia diagnosis but is less sure of schizophrenia stating "I think it's a physical and spiritual thing". Discussed feeling like she failed her brother as he had ADHD and she couldn't "teach him" due to having COVID and severe allergies. Physical Exam Psychiatric Orientation: alert, oriented to person and oriented to place Apperance: appropriately dressed and + disheveled Eye Contact: + fair eye contact Motor Behavior: no abnormal motor movements; n EPS Speech: normal rate/rhythm/volume of speech Affect: + flat affect Mood: + anxious mood Thought Process: + circumstantial thought process Thought Content: + delusions Suicidal Thoughts: denies suicidal thoughts Homicidal Thoughts: denies homicidal thoughts Hallucinations: no auditory hallucinations and no tactile hallucinations Insight: + limited insight Judgment: + limited judgement Vital Signs (Past 24 Hours) Last Vital Signs Temp 36.8 C 10/29/22 06:30 Pulse 75 10/29/22 06:30 Resp 18 10/29/22 06:30 BP 85/56 L 10/29/22 06:30 Pulse Ox 97 10/27/22 06:00 O2 Del Method Room Air 10/27/22 06:00 Results & Data ([facility]) Current Inpatient Medications Current Inpatient Medications: Current Inpatient Medications Acetaminophen (Acetaminophen 325 Mg Tab) 650 mg PO Q4H PRN PRN Reason: Headache or Minor Fever Stop: 11/21/22 05:13 Al Hydrox/Mg Hydrox/Simethicone (Aluminum/Magnesium Susp 30 Ml Udc) 30 ml PO Q4H PRN PRN Reason: GI Upset Stop: 11/21/22 05:13 Azelastine HCl (Azelastine Hcl 0.1% Nasal 200 Sprays/27,400 Mcg Btl) 1 sprays NA HS KIERAN Stop: 11/24/22 21:59 Last Admin: 10/28/22 21:01 Dose: 1 sprays Benztropine Mesylate (Benztropine Mesylate 1 Mg Tab) 1 mg PO Q8 PRN PRN Reason: Muscle Spasm Stop: 11/22/22 11:43 Bismuth Subsalicylate (Bismuth Subsalicylate Liqd 236 Ml) 15 ml PO PRN PRN PRN Reason: Loose Stool Stop: 11/21/22 05:13 Cetirizine HCl (Cetirizine Hcl 10 Mg Tablet) 10 mg PO HS KIERAN Stop: 11/24/22 21:59 Last Admin: 10/28/22 21:01 Dose: 10 mg Haloperidol (Haloperidol 5 Mg Tab) 5 mg PO Q8 PRN PRN Reason: Agitation Stop: 11/22/22 16:03 Haloperidol (Haloperidol 5 Mg Tab) 5 mg PO HS KIERAN Stop: 11/24/22 21:59 Last Admin: 10/28/22 21:01 Dose: 5 mg Hydroxyzine HCl (Hydroxyzine Hcl 25 Mg Tab) 50 mg PO HSZ PRN PRN Reason: Insomnia Stop: 11/21/22 05:13 Last Admin: 10/25/22 00:47 Dose: 50 mg Lorazepam (Lorazepam 1 Mg Tab) 1 mg PO Q6 PRN PRN Reason: Anxiety Stop: 11/22/22 16:03 Last Admin: 10/27/22 10:09 Dose: 1 mg Lorazepam (Lorazepam 1 Mg Tab) 1 mg SL TID KIERAN Stop: 11/26/22 13:59 Last Admin: 10/28/22 21:01 Dose: 1 mg Magnesium Hydroxide (Magnesium Hydroxide Susp 30 Ml Udc) 30 ml PO DAILY PRN PRN Reason: Constipation Stop: 11/21/22 05:13 Sodium Chloride (Sodium Chloride 0.65% Na Soln 45 Ml ([place])) 1 - 2 sprays NA PRN PRN PRN Reason: Nasal Dryness/Congestion Stop: 11/21/22 05:13
[2022-10-29] MEDS: LORazepam 1 MG TAB SL SCH ×3 (11:09→21:23)
[2022-10-29] MEDS: CETIRIZINE HCL 10 MG TABLET PO SCH (21:24)
[2022-10-29] MEDS: haloperidoL 5 MG TAB PO SCH (21:24)
[2022-10-29] MEDS: AZELASTINE HCL 0.1% NASAL 200 SPRAYS/27,400 MCG BTL SCH (21:25)
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
[2022-10-30] MEDS: LORazepam 1 MG TAB SL SCH (09:29)
[2022-10-30] MEDS: LORazepam 1 MG TAB PO SCH ×2 (14:28→21:14)
[2022-10-30] MEDS: CETIRIZINE HCL 10 MG TABLET PO SCH (21:14)
[2022-10-30] MEDS: haloperidoL 5 MG TAB PO SCH (21:14)
[2022-10-30] MEDS: AZELASTINE HCL 0.1% NASAL 200 SPRAYS/27,400 MCG BTL SCH (21:15)
[2022-10-31] MEDS: LORazepam 1 MG TAB PO SCH ×2 (08:20→21:07)
--- NOTE | 2022-10-31 08:57 | Psychiatric Progress Note ---
Date of Service October 31, 2022 Impression / Recommendations Impression 32 yo female with history of psychotic episodes, primarily since COVID, suspect family minimizing severity of catatonia and/or her baseline functioning. Diagnostically seems most consistent with schizophrenia with likely hypoactive catatonia. 10/31/22: increased psychosis, catatonia continuing to improve and she woke up early and her on her own this morning but slightly more irritable today and more delusions and buddhism preoccupation by the afternoon. Attempting to taper ativan to improve adherence in outpatient setting to BID. Overall, I spent a total of 38 minutes with this case including review of chart records, direct evaluation at bedside, counseling, discussion of the patient with the treatment team and documentation in the electronic health record. (1) Schizophrenia: (2) Catatonia: (3) Risk of exposure to Lyme disease: Plan 10/31/2022: Reduce ativan to 1mg BID, continue haldol 5mg HS. 10/30/2022: Continue current medications and tx plan. 10/29/2022: Continue with current medications and tx plan. 10/28/2022: Continue with ativan 1mg TID and haldol 5mg HS 10/27/22: Increase ativan to 1mg TID SL for catatonia, continue with haldol 5mg HS. 10/26/22: d/c midday dose of Haldol, taper hs dose of Ativan to 1 mg. 10/25/22: shift Ativan to hs only since may be sedating now that not as catatonic and/or in combination with Haldol. Will shift Haldol to 2.5 mg midday and 5 mg po qhs (suspect sleep phase shift so closer to home routine). 10/24/22: 303 granted. Will offer Ativan and Haldol TID and track c ompliance/need for forced meds based on any regression as significant risk of dehydration. 10/23/22: patient agreed to resume Haldol 2.5 mg BID and continue scheduled Ativan. Dr. Watters did provide opinion for forced meds as she remains very disorganized and catatonia has been waxing/waning. Anticipating need for extended hospitalization petitioned for 303. 10/22/22: [facility] was [facility]) on q15 min checks (behavioral with suicide precautions) for safety. The patient will participate in group, recreational, and milieu therapies as imp roves and will be offered additional individual and family sessions as clinically appropriate. SL Ativan given and although still won't acknowledge staff or family on phone, did ambulate to toilet/change bedding. Will offer again pending 2nd opinion from Dr. Watters for forced medication. Reviewed with mother indication for 303 hearing as at risk for dehydration. In meantime, as no evidence of lyme titer and recent tic bite will check ESR, lyme titers, repeat lytes, etc in am. Suicide Risk Level Suicide Risk Level: Low (q15 min observation checks) Suicide Risk Level Comments: has not endorsed any SI prior to or during her stay but with acute psychosis and unclear if having any auditory hallucinations. Risk Factors Assessment Male: No : Yes Do You Have Access To A Gun?: No Health Problems: Yes Mental Health Diagnoses: Yes Substance Use Disorders: No Previous Attempt: No Family History of Suicide: No Previous Psychiatric Hospitalization: Yes Hopelessness: No Interval History Identifying Information JONELLE RANDOLPH is a 32-year-old F who currently lives in [place] with brothers, has a history of catatonia and unspecified psychosis, and was admitted on 04:19 on a 302 involuntary commitment for inability to care for self, initially unresponsive due to presumed catatonia.On 303 as of 10/24/22. Chief Complaint "I think I need some cortisone to fully resolve the sleeping and adrenal issues". Review of Systems Sleep Information Total Hours of Sleep: 6 Meal Information Percent Meal Consumed - Breakfast: 75 Percent Meal Consumed - Lunch: 100 Percent Meal Consumed - Dinner: 100 Nutrition Comment: per paper meal log Subjective Subjective Patient was seen & assessed and interval progress reviewed with treatment team nursing and social work. Awake this morning before 8:30am. Slightly s uspicious/irritable of ativan this morning but took it. Is able to discuss her understanding of catatonia as a diagnosis and agrees she woke up more easily but also today thinking again that she needs cortisone due to past use during COVID and that she needs to fix adrenal issues. 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 Tells me she may be able to get a scholarship due to "my maternal scholarship roots". Then shifts to recognizing she had to leave her job at [employer] recently due to her worsening mental health/physical health and wonders if this could have been from catatonia. Also focused this afternoon on copying information from a buddhism book called "[employer]" which shows pictures of [place]. She's spent much of the day copying from the few pages that describe the pictures. Physical Exam Psychiatric Orientation: alert, oriented to person and oriented to place Apperance: appropriately dressed and + disheveled Eye Contact: + fair eye contact Motor Behavior: no abnormal motor movements; n EPS Speech: normal rate/rhythm/volume of speech Affect: + flat affect Mood: + anxious mood and + irritable mood Thought Process: + circumstantial thought process Thought Content: + paranoid, + delusions and + persecution Suicidal Thoughts: denies suicidal thoughts Homicidal Thoughts: denies homicidal thoughts Hallucinations: no auditory hallucinations and no tactile hallucinations Insight: + limited insight Judgment: + limited judgement Vital Signs (Past 24 Hours) Last Vital Signs Temp 36.8 C 10/31/22 06:00 Pulse 61 10/31/22 06:00 Resp 16 10/31/22 06:00 BP 90/57 L 10/31/22 06:00 Pulse Ox 97 10/31/22 06:00 O2 Del Method Room Air 10/31/22 06:00 Results & Data ([facility]) Current Inpatient Medications Current Inpatient Medications: Current Inpatient Medications Acetaminophen (Acetaminophen 325 Mg Tab) 650 mg PO Q4H PRN PRN Reason: Headache or Minor Fever Stop: 11/21/22 05:13 Al Hydrox/Mg Hydrox/Simethicone (Aluminum/Magnesium Susp 30 Ml Udc) 30 ml PO Q4H PRN PRN Reason: GI Upset Stop: 11/21/22 05:13 Azelastine HCl (Azelastine Hcl 0.1% Nasal 200 Sprays/27,400 Mcg Btl) 1 sprays NA HS KIERAN Stop: 11/24/22 21:59 Last Admin: 10/30/22 21:15 Dose: 1 sprays Benztropine Mesylate (Benztropine Mesylate 1 Mg Tab) 1 mg PO Q8 PRN PRN Reason: Muscle Spasm Stop: 11/22/22 11:43 Bismuth Subsalicylate (Bismuth Subsalicylate Liqd 236 Ml) 15 ml PO PRN PRN PRN Reason: Loose Stool Stop: 11/21/22 05:13 Cetirizine HCl (Cetirizine Hcl 10 Mg Tablet) 10 mg PO HS KIERAN Stop: 11/24/22 21:59 Last Admin: 10/30/22 21:14 Dose: 10 mg Haloperidol (Haloperidol 5 Mg Tab) 5 mg PO Q8 PRN PRN Reason: Agitation Stop: 11/22/22 16:03 Haloperidol (Haloperidol 5 Mg Tab) 5 mg PO HS KIERAN Stop: 11/24/22 21:59 Last Admin: 10/30/22 21:14 Dose: 5 mg Hydroxyzine HCl (Hydroxyzine Hcl 25 Mg Tab) 50 mg PO HSZ PRN PRN Reason: Insomnia Stop: 11/21/22 05:13 Last Admin: 10/25/22 00:47 Dose: 50 mg Lorazepam (Lorazepam 1 Mg Tab) 1 mg PO Q6 PRN PRN Reason: Anxiety Stop: 11/22/22 16:03 Last Admin: 10/27/22 10:09 Dose: 1 mg Lorazepam (Lorazepam 1 Mg Tab) 1 mg PO TID KIERAN Stop: 11/29/22 13:59 Last Admin: 10/31/22 08:20 Dose: 1 mg Magnesium Hydroxide (Magnesium Hydroxide Susp 30 Ml Udc) 30 ml PO DAILY PRN PRN Reason: Constipation Stop: 11/21/22 05:13 Sodium Chloride (Sodium Chloride 0.65% Na Soln 45 Ml ([place])) 1 - 2 sprays NA PRN PRN PRN Reason: Nasal Dryness/Congestion Stop: 11/21/22 05:13 Mental Health & Subst Abuse Tx Psychiatrist Name of Psychiatrist: [facility] Michelle Muñiz Post Discharge Appointments Primary Care Physician Name Of Family Doctor/PCP: [facility] Date of Future Appointment with PCP: 11/08/22 Time of Appointment with PCP: arrival 2:45 PM Provider Appointment Comment: [address], [place] [address]
[2022-10-31] MEDS: CETIRIZINE HCL 10 MG TABLET PO SCH (21:07)
[2022-10-31] MEDS: haloperidoL 5 MG TAB PO SCH (21:07)
[2022-10-31] MEDS: AZELASTINE HCL 0.1% NASAL 200 SPRAYS/27,400 MCG BTL SCH (21:08)
[2022-11-01] MEDS: LORazepam 1 MG TAB PO SCH ×2 (09:03→21:12)
--- NOTE | 2022-11-01 09:04 | Psychiatric Progress Note ---
Date of Service November 01, 2022 Impression / Recommendations Impression 32 yo female with history of psychotic episodes, primarily since COVID, suspect family minimizing severity of catatonia and/or her baseline functioning. Diagnostically seems most consistent with schizophrenia with likely hypoactive catatonia. 11/01/22: catatonia remained improved with reduction of ativan, will continue with BID dosing. She consents to increasing haldol given some increased delusions/paranoia/irritability as catatonia continues to improve/clear. Overall, I spent a total of 35 minutes with this case including review of chart records, direct evaluation at bedside, counseling, discussion of the patient with the treatment team and documentation in the electronic health record. (1) Schizophrenia: (2) Catatonia: (3) Risk of exposure to Lyme disease: Plan 11/01/2022: Increase haldol to 7.5mg HS. 10/31/2022: Reduce ativan to 1mg BID, continue haldol 5mg HS. 10/30/2022: Continue current medications and tx plan. 10/29/2022: Continue with current medications and tx plan. 10/28/2022: Continue with ativan 1mg TID and haldol 5mg HS 10/27/22: Increase ativan to 1mg TID SL for catatonia, continue with haldol 5mg HS. 10/26/22: d/c midday dose of Haldol, taper hs dose of Ativan to 1 mg. 10/25/22: shift Ativan to hs only since may be sedating now that not as catatonic and/or in combination with Haldol. Will shift Haldol to 2.5 mg midday and 5 mg po qhs (suspect sleep phase shift so closer to home routine). 10/24/22: 303 granted. Will offer Ativan and Haldol TID and track compliance/need for forced meds based on any regression as significant risk of dehydration. 10/23/22: patient agreed to resume Haldol 2.5 mg BID and continue scheduled Ativan. Dr. Watters did provide opinion for forced meds as she remains very disorganized and catatonia has been waxing/waning. Anticipating need for extended hospitalization petitioned for 303. 10/22/22: The patient was admitted to the [facility] (locked inpatient mental health unit) on q15 min checks (behavioral with suicide precautions) for safety. The patient will participate in group, recreational, and milieu therapies as improves and will be offered additional individual and family sessions as clinically appropriate. SL Ativan given and although still won't acknowledge staff or family on phone, did ambulate to toilet/change bedding. Will offer again pending 2nd opinion from Dr. Watters for forced medication. Reviewed with mother indication for 303 hearing as at risk for dehydration. In meantime, as no evidence of lyme titer and recent tic bite will check ESR, lyme titers, repeat lytes, etc in am. Suicide Risk Level Suicide Risk Level: Low (q15 min observation checks) Suicide Risk Level Comments: has not endorsed any SI prior to or during her stay but with acute psychosis and unclear if having any auditory hallucinations. Risk Factors Assessment Male: No : Yes Do You Have Access To A Gun?: No Health Problems: Yes Mental Health Diagnoses: Yes Substance Use Disorders: No Previous Attempt: No Family History of Suicide: No Previous Psychiatric Hospitalization: Yes Hopelessness: No Interval History Identifying Information RAIZA RANDOLPH is a 32-year-old F who currently lives in [place] with brothers, has a history of catatonia and unspecified psychosis, and was admitted on 04:19 on a 302 involuntary commitment for inability to care for self, initially unresponsive due to presumed catatonia.On 303 as of 10/24/22. Chief Complaint "Yeah it was a difficult call". Review of Systems Sleep Information Total Hours of Sleep: 6.75 Meal Information Percent Meal Consumed - Breakfast: 100 Percent Meal Consumed - Lunch: 100 Percent Meal Consumed - Dinner: 100 Nutrition Comment: per paper meal log Subjective Subjective Patient was seen & assessed and interval progress reviewed with treatment team nursing and social work. Last evening got upset and was raising her voice while talking to her aunt. Her aunt reported that Raiza's mother wants her to have an regulatory affairs internship abroad so that she can't be placed in the psychiatric hospital by the government. Suspicious on phone with her aunt about when family members /questioning reality of this. Paranoia about signing some of the paperwork for a case investigator. Today reflects that phone call was upsetting because it brought up frustrations about who inherited money from her paternal aunt when she and her house was sold. Discusses her interest in geoscience as it relates to history and wants to see if she can use benefits from his dad's GI bill for school. Remains somatically focused at times, including on past medical issues/allergies. She's agreeable to increasing the haldol. Physical Exam Psychiatric Orientation: alert, oriented to person and oriented to place Apperance: appropriately dressed and + disheveled Eye Contact: + fair eye contact Motor Behavior: no abnormal motor movements; n EPS Speech: normal rate/rhythm/volume of speech Affect: + irritable affect and + constricted affect Mood: + anxious mood and + irritable mood Thought Process: + circumstantial thought process Thought Content: + paranoid and + delusions Suicidal Thoughts: denies suicidal thoughts Homicidal Thoughts: denies homicidal thoughts Hallucinations: no auditory hallucinations and no tactile hallucinations Insight: + limited insight Judgment: + limited judgement Vital Signs (Past 24 Hours) Last Vital Signs Temp 36.7 C 11/01/22 06:47 Pulse 91 H 11/01/22 06:47 Resp 14 11/01/22 06:47 BP 93/65 L 11/01/22 06:47 Pulse Ox 97 10/31/22 06:00 O2 Del Method Room Air 10/31/22 06:00 Results & Data ([facility]) Current Inpatient Medications Current Inpatient Medications: Current Inpatient Medications Acetaminophen (Acetaminophen 325 Mg Tab) 650 mg PO Q4H PRN PRN Reason: Headache or Minor Fever Stop: 11/21/22 05:13 Al Hydrox/Mg Hydrox/Simethicone (Aluminum/Magnesium Susp 30 Ml Udc) 30 ml PO Q4H PRN PRN Reason: GI Upset Stop: 11/21/22 05:13 Azelastine HCl (Azelastine Hcl 0.1% Nasal 200 Sprays/27,400 Mcg Btl) 1 sprays NA HS KIERAN Stop: 11/24/22 21:59 Last Admin: 10/31/22 21:08 Dose: 1 sprays Benztropine Mesylate (Benztropine Mesylate 1 Mg Tab) 1 mg PO Q8 PRN PRN Reason: Muscle Spasm Stop: 11/22/22 11:43 Bismuth Subsalicylate (Bismuth Subsalicylate Liqd 236 Ml) 15 ml PO PRN PRN PRN Reason: Loose Stool Stop: 11/21/22 05:13 Cetirizine HCl (Cetirizine Hcl 10 Mg Tablet) 10 mg PO HS KIERAN Stop: 11/24/22 21:59 Last Admin: 10/31/22 21:07 Dose: 10 mg Haloperidol (Haloperidol 5 Mg Tab) 5 mg PO Q8 PRN PRN Reason: Agitation Stop: 11/22/22 16:03 Haloperidol (Haloperidol 5 Mg Tab) 5 mg PO HS KIERAN Stop: 11/24/22 21:59 Last Admin: 10/31/22 21:07 Dose: 5 mg Hydroxyzine HCl (Hydroxyzine Hcl 25 Mg Tab) 50 mg PO HSZ PRN PRN Reason: Insomnia Stop: 11/21/22 05:13 Last Admin: 10/25/22 00:47 Dose: 50 mg Lorazepam (Lorazepam 1 Mg Tab) 1 mg PO Q6 PRN PRN Reason: Anxiety Stop: 11/22/22 16:03 Last Admin: 10/27/22 10:09 Dose: 1 mg Lorazepam (Lorazepam 1 Mg Tab) 1 mg PO BID KIERAN Stop: 11/30/22 20:59 Last Admin: 10/31/22 21:07 Dose: 1 mg Magnesium Hydroxide (Magnesium Hydroxide Susp 30 Ml Udc) 30 ml PO DAILY PRN PRN Reason: Constipation Stop: 11/21/22 05:13 Sodium Chloride (Sodium Chloride 0.65% Na Soln 45 Ml ([place])) 1 - 2 sprays NA PRN PRN PRN Reason: Nasal Dryness/Congestion Stop: 11/21/22 05:13 Mental Health & Subst Abuse Tx Psychiatrist Name of Psychiatrist: [facility] Michelle Muñiz Post Discharge Appointments Primary Care Physician Name Of Family Doctor/PCP: Akhil [facility] Primary [facility] Date of Future Appointment with PCP: 11/08/22 Time of Appointment with PCP: arrival 2:45 PM Provider Appointment Comment: [address], [address], [place] [address]
[2022-11-01] MEDS: CETIRIZINE HCL 10 MG TABLET PO SCH (21:12)
[2022-11-01] MEDS: haloperidoL 5 MG TAB PO SCH (21:12)
[2022-11-01] MEDS: AZELASTINE HCL 0.1% NASAL 200 SPRAYS/27,400 MCG BTL SCH (21:14)
--- NOTE | 2022-11-02 09:13 | Psychiatric Progress Note ---
Date of Service November 02, 2022 Impression / Recommendations Impression 32 yo female with history of psychotic episodes, primarily since COVID, suspect family minimizing severity of catatonia and/or her baseline functioning. Diagnostically seems most consistent with schizophrenia with likely hypoactive catatonia. 11/02/22: steady progress, tolerating higher dose of haldol so far without any re-emergence of catatonia and no delusional thought content today Overall, I spent a total of 35 minutes with this case including review of chart records, direct evaluation at bedside, counseling, discussion of the patient with the treatment team and documentation in the electronic health record. (1) Schizophrenia: (2) Catatonia: (3) Risk of exposure to Lyme disease: Plan 11/02/2022: Continue ativan 1mg BID and haldol 7.5mg HS 11/01/2022: Increase haldol to 7.5mg HS. 10/31/2022: Reduce ativan to 1mg BID, continue haldol 5mg HS. 10/30/2022: Continue current medications and tx plan. 10/29/2022: Continue with current medications and tx plan. 10/28/2022: Continue with ativan 1mg TID and haldol 5mg HS 10/27/22: Increase ativan to 1mg TID SL for catatonia, continue with haldol 5mg HS. 10/26/22: d/c midday dose of Haldol, taper hs dose of Ativan to 1 mg. 10/25/22: shift Ativan to hs only since may be sedating now that not as catatonic and/or in combination with Haldol. Will shift Haldol to 2.5 mg midday and 5 mg po qhs (suspect sleep phase shift so closer to home routine). 10/24/22: 303 granted. Will offer Ativan and Haldol TID and track compliance/need for forced meds based on any regression as significant risk of dehydration. 10/23/22: patient agreed to resume Haldol 2.5 mg BID and continue scheduled Ativan. Dr. Watters did provide opinion for forced meds as she remains very disorganized and catatonia has been waxing/waning. Anticipating need for extended hospitalization petitioned for 303. 10/22/22: The patient was admitted to the [facility]) on q15 min checks (behavioral with suicide precautions) for safety. The patient will participate in group, recreational, and milieu therapies as improves and will be offered additional individual and family sessions as clinically appropriate. SL Ativan given and although still won't acknowledge staff or family on phone, did ambulate to toilet/change bedding. Will offer again pending 2nd opinion from Dr. Watters for forced medication. Reviewed with mother indication for 303 hearing as at risk for dehydration. In meantime, as no evidence of lyme titer and recent tic bite will check ESR, lyme titers, repeat lytes, etc in am. Suicide Risk Level Suicide Risk Level: Low (q15 min observation checks) Suicide Risk Level Comments: has not endorsed any SI prior to or during her stay, psychosis has improved Risk Factors Assessment Male: No : Yes Do You Have Access To A Gun?: No Health Problems: Yes Mental Health Diagnoses: Yes Substance Use Disorders: No Previous Attempt: No Family History of Suicide: No Previous Psychiatric Hospitalization: Yes Hopelessness: No Interval History Identifying Information JONELLE RANDOLPH is a 32-year-old F who currently lives in [place] with brothers, has a history of catatonia and unspecified psychosis, and was admitted on 04:19 on a 302 involuntary commitment for inability to care for self, initially unresponsive due to presumed catatonia.On 303 as of 10/24/22. Chief Complaint "I'm good". Review of Systems Sleep Information Total Hours of Sleep: 6.5 Meal Information Percent Meal Consumed - Breakfast: 100 Percent Meal Consumed - Lunch: 100 Percent Meal Consumed - Dinner: 100 Nutrition Comment: per paper meal log Subjective Subjective Patient was seen & assessed and interval progress reviewed with treatment team nursing and social work. Interacting well with peers, bright affect. Completed her caser in intake. No symptoms of catatonia. No side effects so far from higher dose of haldol. More organized today, future-oriented. Physical Exam Psychiatric Orientation: alert, oriented to person and oriented to place Apperance: appropriately dressed and appropriately groomed Eye Contact: + fair eye contact Motor Behavior: no abnormal motor movements; n EPS Speech: normal rate/rhythm/volume of speech Affect: euthymic affect Mood: no depressed mood and no anxious mood Thought Process: + circumstantial thought process Thought Content: reality based without delusions Suicidal Thoughts: denies suicidal thoughts Homicidal Thoughts: denies homicidal thoughts Hallucinations: no auditory hallucinations, no visual hallucinations and no tactile hallucinations Insight: + limited insight Judgment: + limited judgement Vital Signs (Past 24 Hours) Last Vital Signs Temp 36.8 C 11/02/22 06:51 Pulse 91 H 11/02/22 06:51 Resp 16 11/02/22 06:51 BP 97/69 L 11/02/22 06:51 Pulse Ox 97 10/31/22 06:00 O2 Del Method Room Air 10/31/22 06:00 Results & Data ([facility]) Current Inpatient Medications Current Inpatient Medications: Current Inpatient Medications Acetaminophen (Acetaminophen 325 Mg Tab) 650 mg PO Q4H PRN PRN Reason: Headache or Minor Fever Stop: 11/21/22 05:13 Al Hydrox/Mg Hydrox/Simethicone (Aluminum/Magnesium Susp 30 Ml Udc) 30 ml PO Q4H PRN PRN Reason: GI Upset Stop: 11/21/22 05:13 Azelastine HCl (Azelastine Hcl 0.1% Nasal 200 Sprays/27,400 Mcg Btl) 1 sprays NA HS KIERAN Stop: 11/24/22 21:59 Last Admin: 11/01/22 21:14 Dose: 1 sprays Benztropine Mesylate (Benztropine Mesylate 1 Mg Tab) 1 mg PO Q8 PRN PRN Reason: Muscle Spasm Stop: 11/22/22 11:43 Bismuth Subsalicylate (Bismuth Subsalicylate Liqd 236 Ml) 15 ml PO PRN PRN PRN Reason: Loose Stool Stop: 11/21/22 05:13 Cetirizine HCl (Cetirizine Hcl 10 Mg Tablet) 10 mg PO HS KIERAN Stop: 11/24/22 21:59 Last Admin: 11/01/22 21:12 Dose: 10 mg Haloperidol (Haloperidol 5 Mg Tab) 5 mg PO Q8 PRN PRN Reason: Agitation Stop: 11/22/22 16:03 Haloperidol (Haloperidol 5 Mg Tab) 7.5 mg PO HS KIERAN Stop: 12/01/22 21:59 Last Admin: 11/01/22 21:12 Dose: 7.5 mg Hydroxyzine HCl (Hydroxyzine Hcl 25 Mg Tab) 50 mg PO HSZ PRN PRN Reason: Insomnia Stop: 11/21/22 05:13 Last Admin: 10/25/22 00:47 Dose: 50 mg Lorazepam (Lorazepam 1 Mg Tab) 1 mg PO Q6 PRN PRN Reason: Anxiety Stop: 11/22/22 16:03 Last Admin: 10/27/22 10:09 Dose: 1 mg Lorazepam (Lorazepam 1 Mg Tab) 1 mg PO BID KIERAN Stop: 11/30/22 20:59 Last Admin: 11/01/22 21:12 Dose: 1 mg Magnesium Hydroxide (Magnesium Hydroxide Susp 30 Ml Udc) 30 ml PO DAILY PRN PRN Reason: Constipation Stop: 11/21/22 05:13 Sodium Chloride (Sodium Chloride 0.65% Na Soln 45 Ml ([place])) 1 - 2 sprays NA PRN PRN PRN Reason: Nasal Dryness/Congestion Stop: 11/21/22 05:13 Mental Health & Subst Abuse Tx Psychiatrist Name of Psychiatrist: [facility] - Dr. Muñiz Concreting Supervisor Name of Concreting Supervisor: [employer] Case Management Phone Number for Concreting Supervisor: Case Management Appointment Comment: A Concreting Supervisor will reach out to you directly to schedule meeting. Post Discharge Appointments Primary Care Physician Name Of Family Doctor/PCP: Akhil Ferrari Primary [facility] Date of Future Appointment with PCP: 11/08/22 Time of Appointment with PCP: arrival 2:45 PM Provider Appointment Comment: [address], [address], [place] [address]
[2022-11-02] MEDS: LORazepam 1 MG TAB PO SCH ×2 (09:15→21:16)
[2022-11-02] MEDS: CETIRIZINE HCL 10 MG TABLET PO SCH (21:17)
[2022-11-02] MEDS: haloperidoL 5 MG TAB PO SCH (21:18)
[2022-11-02] MEDS: AZELASTINE HCL 0.1% NASAL 200 SPRAYS/27,400 MCG BTL SCH (21:19)
[2022-11-03] MEDS: LORazepam 1 MG TAB PO SCH (09:10)
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
== END 2022-11-03 14:55 | disposition home or self-care (01) | DRG 885 ==
LOC: ED 20:57 → SUATTDRO 10-22 04:19 → 3S 10-22 04:19

== ENCOUNTER 2024-08-13 15:56 | Observation (INO) ==
--- NOTE | 2024-08-13 16:26 | Emergency Department Note ---
Impression & Plan COVID-19, Pneumonia, Sepsis ED Provider Note Diagnosis: Pneumonia, sepsis, COVID, urinary retention Disposition: Admission CHIEF COMPLAINT: COVID HPI: Patient is a 34-year-old female presenting with complaint of feeling lightheaded. Patient diagnosed 2 to 3 days prior with COVID-19. Patient has been experiencing fevers at home cough and diarrhea. Patient had a headache today which is not uncommon for her and felt lightheaded. PAST MEDICAL HISTORY: See Below PAST SURGICAL HISTORY: See Below SOCIAL HISTORY: See Below HOME MEDICATIONS: See Below ALLERGIES: See Below VITALS: See Below PHYSICAL EXAMINATION: GENERAL: Well appearing, well nourished, NAD, non-toxic. EYE EXAM: Normal conjunctiva. OROPHARYNX: Moist mucus membranes. Grossly normal dentition. NECK: Supple, LUNGS: Clear to auscultation. Normal chest wall mechanics. HEART: NSR ABDOMEN: Abdomen soft, non-tender, normo-active bowel sounds, no masses, no rebound or guarding BACK: No CVA TTP. SKIN: No rashes and no bruising. UPPER EXTREMITIES: Upper extremities are grossly normal LOWER EXTREMITIES: Grossly normal, no edema. NEURO EXAM: A&O x3,, normal speech, moves all 4 extremities PSYCH: Cooperative MEDICAL DECISION MAKING: History obtained from: Patient ER Course: Patient is a 34-year-old female presenting with complaint of being diagnosed with COVID 2 to 3 days prior. Patient having worsening symptoms today with fevers tachycardia and abdominal pain. Patient found to have a leukocytosis and elevated lactate level. Patient given 2 L bolus of normal saline and broad- spectrum antibiotics cefepime. Patient found on bladder scan to have 800 cc present. Patient had Prado catheter attempted by nursing staff however due to patient's prior trauma she needed Ativan and then after Prado catheter was placed she ripped it out. Patient then went to the bathroom and peed 700 cc and was no longer retaining. Patient admitted to hospital service. Labs (independently interpreted) are significant for: Leukocytosis, elevated lactate Imaging results (independently interpreted): Chest x-ray with pneumonia present Medications given: IV fluid, Tylenol, Zofran, cefepime Consultants: Hospitalist Triage Nursing notes reviewed and agree them. Vital Signs: reviewed and remarkable for: no significant abnormalities Past Med/Surg History Problem List (Updated 08/13/24 @ 23:54 by Rojelio Yadav DO) Sepsis (Acute) Pneumonia (Acute) COVID-19 (Acute) Abdominal pain (Acute) Syncope (Acute) Schizophrenia (Acute) Medical History Risk of exposure to Lyme disease Catatonia Vitamin D deficiency Migraine Allergic rhinitis Surgical History History of wisdom tooth extraction Family History Mother FHx: allergies Diabetes Heart disease Father , Age 56 Heart disease Myocardial infarction Pulmonary embolism Aunt Breast cancer Colorectal cancer Grandmother (Maternal) Myocardial infarction Denies family history of Ovarian cancer Prostate cancer Social History Smoking Status: Never smoker Second Hand Exposure: Yes; Do You Dip or Chew Tobacco: No; Hx Alcohol Use: Yes Alcohol type: hard liquor Alcohol Intake Frequency: Monthly or Less Hx Substance Use: No Preferred Language: Italian Visual Impairment: Limited Hearing Ability: Normal 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 marital status: Single Current Living Situation: Family current occupational status: employed current occupation: [employer] How many Children do You have: 0 Feels Safe at Home: Yes Childhood Exposure to Second-Hand Smoke: Yes caffeine: Yes Dental Care, Regularly: No Physical Activity Frequency: 1-2 Times per Week Seatbelt Use: always Sunscreen Use: Yes Do you think of yourself as: straight/heterosexual Sexual Activity: has never been active Gender Identity: Female Allergies Allergies Allergy/AdvReac Type Severity Reaction Status Date / Time adhesive Allergy Intermediate Rash Verified 08/13/24 17:31 strawberry Allergy Intermediate Rash Verified 08/13/24 17:31 ragweed pollen Allergy Unknown ON Verified 08/13/24 17:31 [facility] tree and shrub pollen Allergy Unknown Unknown Verified 08/13/24 17:31 yellow dye Allergy Unknown ON Verified 08/13/24 17:31 [facility] STERIODS AdvReac Severe PSYCHOTIC Uncoded 08/13/24 17:31 ISSUES Home Meds Home Medications Medication Instructions Recorded Confirmed cetirizine 10 mg tablet (Zyrtec) 10 mg PO QAM 11/03/19 08/13/24 cholecalciferol (vitamin D3) 50 50 mcg PO QAM 10/22/22 08/13/24 mcg (2,000 unit) tablet (Vitamin D3) vitamin B complex 1 tab PO QAM 10/22/22 08/13/24 haloperidol 10 mg tablet 10 mg PO BID 06/25/24 08/13/24 selenium sulfide 2.5 % lotion 1 applic topical DIRECTED 06/25/24 08/13/24 benztropine 0.5 mg tablet 0.5 mg PO BID 07/04/24 08/13/24 albuterol sulfate 90 mcg/actuation 2 puff inhalation Q4H PRN 08/03/24 08/13/24 aerosol inhaler Shortness Of Breath Or Wheezing hydrocortisone 2.5 % topical cream 1 applic topical TID PRN Skin 08/03/24 08/13/24 Irritation triamcinolone acetonide 55 mcg 2 spray intranasal BID 08/03/24 08/13/24 nasal spray aerosol Results & Data (ED) Vital Signs Vital Signs - 24 hr 08/13/24 16:00 08/13/24 16:26 08/13/24 16:37 Temperature 37.2 C Temperature Source Temporal Artery Scan Pulse Rate 114 H 104 H Pulse Rate [Apical] 103 H Pulse Rhythm [Apical] Regular Pulse Strength [Apical] Normal Respiratory Rate 20 29 H Respiratory Effort / Characteristics Non-Labored Spontaneous Respiratory Depth Normal Respiratory Pattern Regular Blood Pressure 117/72 Blood Pressure [Right Arm] 109/84 Blood Pressure Mean 87 Blood Pressure Mean [Right Arm] 92 Blood Pressure Position [Right Arm] Sitting Pulse Oximetry 96 97 Oxygen Delivery Method Room Air Room Air Sepsis New/Unexplained Change in Mental Status N/A Sepsis Action Taken by Nursing No Action Required 08/13/24 18:00 08/13/24 19:00 08/13/24 19:42 Temperature 37.3 C Temperature Source Oral Pulse Rate Pulse Rate [Apical] 91 H 90 78 Pulse Rhythm [Apical] Regular Pulse Strength [Apical] Normal Respiratory Rate 23 18 16 Respiratory Effort / Characteristics Non-Labored Spontaneous Non-Labored Spontaneous Respiratory Depth Normal Normal Respiratory Pattern Regular Regular Blood Pressure Blood Pressure [Right Arm] 121/67 99/55 L 121/85 Blood Pressure Mean Blood Pressure Mean [Right Arm] 85 69 97 Blood Pressure Position [Right Arm] Sitting Pulse Oximetry 99 98 98 Oxygen Delivery Method Room Air Room Air Sepsis New/Unexplained Change in Mental Status Sepsis Action Taken by Nursing 08/13/24 20:30 08/13/24 22:00 Temperature Temperature Source Pulse Rate Pulse Rate [Apical] 82 80 Pulse Rhythm [Apical] Pulse Strength [Apical] Respiratory Rate 18 18 Respiratory Effort / Characteristics Respiratory Depth Respiratory Pattern Blood Pressure Blood Pressure [Right Arm] 147/101 H 135/109 H Blood Pressure Mean Blood Pressure Mean [Right Arm] 116 117 Blood Pressure Position [Right Arm] Pulse Oximetry 98 98 Oxygen Delivery Method Room Air Sepsis New/Unexplained Change in Mental Status Sepsis Action Taken by Nursing Laboratory Data 08/13/24 16:47 08/13/24 16:47 Lab Results 08/13/24 08/13/24 08/13/24 Range/Units 16:47 18:49 20:31 WBC 14.14 H (4.8-10.8) K/ul RBC 4.31 (4.20-5.40) M/uL Hgb 11.7 L (12.0-16.0) g/dl Hct 35.4 L (37.0-47.0) % MCV 82.1 (80.0-100.0) fL MCH 27.1 (25.0-34.0) pg MCHC 33.1 (32.0-36.0) g/dL RDW Std Deviation 44.4 (36.4-46.3) fL RDW Coeff of Klarissa 14.7 H (11.5-14.5) % Plt Count 260 (130-400) K/uL MPV 10.0 (9.4-12.4) fL Immature Gran % (Auto) 0.4 % Neut % (Auto) 73.5 % Lymph % (Auto) 19.0 % Hyde % (Auto) 5.7 % Eos % (Auto) 1.1 % Baso % (Auto) 0.3 % Neut # (Auto) 10.41 H (1.40-6.50) K/uL Lymph # (Auto) 2.68 (1.20-3.40) K/uL Hyde # (Auto) 0.80 H (0.11-0.59) K/uL Eos # (Auto) 0.15 (0.00-0.50) K/uL Baso # (Auto) 0.04 (0.00-0.20) K/uL Immature Gran # (Auto) 0.06 (0.01-0.20) K/uL Sodium 140 (136-145) mmol/L Potassium 3.6 (3.5-5.1) mmol/L Chloride 109 H (98-107) mmol/L Carbon Dioxide 24 (21-32) mmol/L Anion Gap 7 (3-11) BUN 18 (6-23) mg/dl Creatinine 0.80 (0.6-1.2) mg/dl Est Cr Clr Drug Dosing 116.7 ml/min eGFR 99.09 BUN/Creatinine Ratio 22.5 H (10-20) Glucose 124 H (70-99(Fasting)) mg/dl Lactate 2.2 H* 0.8 1.3 (0.4-2.0) mmol/L Calcium 8.5 L (8.6-10.3) mg/dl Total Bilirubin 0.3 (0.2-1.0) mg/dl AST 16 (13-39) U/L ALT 16 (7-52) U/L Alkaline Phosphatase 56 (34-104) U/L Troponin I High Sens < 2.3 (0-14) pg/ml Total Protein 6.3 (6.0-8.3) gm/dl Albumin 3.7 (3.4-5.0) gm/dl Globulin 2.6 (2.5-4.0) gm/dl Albumin/Globulin Ratio 1.4 (0.9-2) Lipase 39 (11-82) U/L Urine Color Urine Appearance (Clear) Urine pH (4.5-7.5) Ur Specific [place] (1.000-1.030) Urine Protein (Negative) Urine Glucose (UA) (Negative) Urine Ketones (Negative) Urine Blood (Negative) Urine Nitrite (Negative) Urine Bilirubin (Negative) Urine Urobilinogen (Negative) Ur Leukocyte Esterase (Negative) Urine WBC (Auto) (0-5) /hpf Urine RBC (Auto) (0-2) /hpf U Hyaline Cast (Auto) (0-2) /lpf U Epithel Cells (Auto) (0-2) /hpf Urine Bacteria (Auto) (None Seen) Urine Comment 08/13/24 Range/Units 22:54 WBC (4.8-10.8) K/ul RBC (4.20-5.40) M/uL Hgb (12.0-16.0) g/dl Hct (37.0-47.0) % MCV (80.0-100.0) fL MCH (25.0-34.0) pg MCHC (32.0-36.0) g/dL RDW Std Deviation (36.4-46.3) fL RDW Coeff of Klarissa (11.5-14.5) % Plt Count (130-400) K/uL MPV (9.4-12.4) fL Immature Gran % (Auto) % Neut % (Auto) % Lymph % (Auto) % Hyde % (Auto) % Eos % (Auto) % Baso % (Auto) % Neut # (Auto) (1.40-6.50) K/uL Lymph # (Auto) (1.20-3.40) K/uL Hyde # (Auto) (0.11-0.59) K/uL Eos # (Auto) (0.00-0.50) K/uL Baso # (Auto) (0.00-0.20) K/uL Immature Gran # (Auto) (0.01-0.20) K/uL Sodium (136-145) mmol/L Potassium (3.5-5.1) mmol/L Chloride (98-107) mmol/L Carbon Dioxide (21-32) mmol/L Anion Gap (3-11) BUN (6-23) mg/dl Creatinine (0.6-1.2) mg/dl Est Cr Clr Drug Dosing ml/min eGFR BUN/Creatinine Ratio (10-20) Glucose (70-99(Fasting)) mg/dl Lactate (0.4-2.0) mmol/L Calcium (8.6-10.3) mg/dl Total Bilirubin (0.2-1.0) mg/dl AST (13-39) U/L ALT (7-52) U/L Alkaline Phosphatase (34-104) U/L Troponin I High Sens (0-14) pg/ml Total Protein (6.0-8.3) gm/dl Albumin (3.4-5.0) gm/dl Globulin (2.5-4.0) gm/dl Albumin/Globulin Ratio (0.9-2) Lipase (11-82) U/L Urine Color Yellow Urine Appearance Clear (Clear) Urine pH 6.0 (4.5-7.5) Ur Specific [place] 1.026 (1.000-1.030) Urine Protein Negative (Negative) Urine Glucose (UA) Negative (Negative) Urine Ketones Negative (Negative) Urine Blood 1+ H (Negative) Urine Nitrite Negative (Negative) Urine Bilirubin Negative (Negative) Urine Urobilinogen Negative (Negative) Ur Leukocyte Esterase Negative (Negative) Urine WBC (Auto) 0-5 (0-5) /hpf Urine RBC (Auto) 0-2 (0-2) /hpf U Hyaline Cast (Auto) 0-2 (0-2) /lpf U Epithel Cells (Auto) 0-2 (0-2) /hpf Urine Bacteria (Auto) None Seen (None Seen) Urine Comment Administered Medications Discontinued Medications Sodium Chloride (Nss) 1,000 mls @ 999 mls/hr IV .Q1H1M ONE Stop: 08/13/24 17:21 Last Infusion: 08/13/24 17:59 Dose: Infused Documented By: Admin: 08/13/24 16:53 Dose: 999 mls/hr Documented By: ARPIT Acetaminophen (Ofirmev) 1,000 mg in 100 mls @ 400 mls/hr IV NOW STA Stop: 08/13/24 16:35 Last Infusion: 08/13/24 17:59 Dose: Infused Documented By: Admin: 08/13/24 16:54 Dose: 400 mls/hr Documented By: ARPIT Sodium Chloride (Nss) 1,000 mls @ 999 mls/hr IV .Q1H1M ONE Stop: 08/13/24 20:44 Last Infusion: 08/13/24 21:32 Dose: Infused Documented By: Admin: 08/13/24 20:25 Dose: 999 mls/hr Documented By: JUSTINE Cefepime HCl (Maxipime 2000mg) 2,000 mg in 20 mls @ 5 mls/min IV NOW STA; Protocol Stop: 08/13/24 19:48 Last Admin: 08/13/24 20:22 Dose: 5 mls/min Documented By: JUSTINE Ioversol (Optiray 320 100ml) 90 ml IV ONCE ONE Stop: 08/13/24 20:56 Last Admin: 08/13/24 20:55 Dose: 90 ml Documented By: MICHEAL Lorazepam (Lorazepam 2 Mg/1 Ml Vial) 1 mg IV NOW STA Stop: 08/13/24 22:22 Last Admin: 08/13/24 22:26 Dose: 1 mg Documented By: JIM Ondansetron HCl (Ondansetron Inj 2 Mg/Ml 2 Ml Vial) 4 mg IV NOW STA Stop: 08/13/24 16:22 Last Admin: 08/13/24 16:57 Dose: 4 mg Documented By: ARPIT Imaging Data Radiologist's Impression: Chest X-Ray 08/13/24 16:21 EXAM: XR chest 1V portable CLINICAL HISTORY: Cough, covid. TECHNIQUE: An X-ray image of the chest is obtained in AP projection. COMPARISON: CR dated 08/03/2024. FINDINGS: Pulmonary Parenchyma: Right lower lung zone hazy opacity No pulmonary nodules are identified. No evidence of pleural effusion or pleural thickening. Heart and Mediastinum: Heart size and shape are normal. No mediastinal widening or masses. No hilar or mediastinal lymphadenopathy. Bony Thorax: The bony thorax appears intact without fractures or deformities. Soft Tissues: Soft tissues overlying the chest wall are unremarkable. IMPRESSION: 1. Right lower lung zone hazy opacity, suggesting possible infiltrate relative regression compared to prior. 2. Please correlate clinically. Electronically signed by Vasiliy Briones 08-13-2024 6:29 PM Abdomen/Pelvis CT 08/13/24 19:44 Exam(s): CT ABDOMEN + PELVIS With Contrast IV Amt: 90 ml optiray 320 EXAM: CT Abdomen and Pelvis With Intravenous Contrast CLINICAL HISTORY: Reason for exam: fever, sepsis, diarrhea. TECHNIQUE: Axial computed tomography images of the abdomen and pelvis with intravenous contrast. CTDI is 28 mGy and DLP is 1429 mGy-cm. Automated exposure control was utilized for the study. A dose lowering technique was utilized adhering to the principles of ALARA. CONTRAST: Patient received 90 ml optiray 320 of IV contrast COMPARISON: 08/03/2024 FINDINGS: ABDOMEN: Liver: Unremarkable. Gallbladder and bile ducts: Unremarkable. Pancreas: Unremarkable. Spleen: Unremarkable. Adrenals: Unremarkable. Kidneys and ureters: Unremarkable. No obstructing stones. No hydronephrosis. Stomach and bowel: Unremarkable. PELVIS: Appendix: No findings to suggest acute appendicitis. Bladder: Unremarkable. Reproductive: Unremarkable as visualized. ABDOMEN and PELVIS: Intraperitoneal space: Unremarkable. No free air. No significant fluid collection. Bones/joints: No acute fracture. Soft tissues: Unremarkable. Vasculature: Unremarkable. Lymph nodes: Unremarkable. IMPRESSION: 1. No acute process within the abdomen or pelvis. Electronically signed by: Darren Gonzalez MD 08/13/24 22:32 PM Discharge Plan Visit Data Chief Complaint: Abdominal Pain Stated Complaint: HEAD AND STOMACH PAIN, NEAR SYNCOPE ED Provider: Rojleio Yadav Discharge Problem: COVID-19, Pneumonia, Sepsis Patient Disposition: Admitted As Inpatient Condition: Fair Forms Stand Alone Forms: [facility] Prescriptions Prescriptions: No Action cetirizine [Zyrtec] 10 mg tablet 10 mg PO QAM vitamin B complex Tablet 1 tab PO QAM cholecalciferol (vitamin D3) [Vitamin D3] 50 mcg (2,000 unit) Tablet 50 mcg PO QAM benztropine 0.5 mg tablet 0.5 mg PO BID Rx Instructions: TAKES 0100 & 1300 haloperidol 10 mg tablet 10 mg PO BID Rx Instructions: TAKES 0100 & 1300 selenium sulfide 2.5 % lotion 1 applic TOPICAL DIRECTED triamcinolone acetonide 55 mcg Aerosol,[place] 2 spray INTRANASAL BID Rx Instructions: administer into each nostril hydrocortisone 2.5 % Cream 1 applic TOPICAL TID PRN (Reason: Skin Irritation) albuterol sulfate 90 mcg/actuation Hfa Aerosol Inhaler 2 puff INHALATION Q4H PRN (Reason: Shortness Of Breath Or Wheezing) Referrals Referrals: Macy Ferrari, [Primary Care Provider] -
[2024-08-13] MEDS: SODIUM CHLORIDE 0.9% 1,000 ML IV ONE ×2 (16:53→20:25)
[2024-08-13] MEDS: ACETAMINOPHEN 1,000 MG/100 ML VIAL IV STA (16:54)
[2024-08-13] MEDS: ONDANSETRON INJ 2 MG/ML 2 ML VIAL IV STA (16:57)
[2024-08-13 17:00] LABS: Basophils # (auto) 0.04 K/uL (0.00-0.20); Basophils % (auto) 0.3 %; Eosinophils # (auto) 0.15 K/uL (0.00-0.50); Eosinophils % (auto) 1.1 %; Hematocrit (blood only) 35.4 % (37.0-47.0); Hemoglobin 11.7 g/dl (12.0-16.0); Immature Granulocytes # (auto) 0.06 K/uL (0.01-0.20); Immature Granulocytes % (auto) 0.4 %; Lymphocytes # (auto) 2.68 K/uL (1.20-3.40); Mean Corpuscular Hemoglobin 27.1 pg (25.0-34.0); Mean Corpuscular Hgb Conc 33.1 g/dL (32.0-36.0); Mean Corpuscular Volume 82.1 fL (80.0-100.0); Monocytes % (auto) 5.7 %; Neutrophils # (auto) 10.41 K/uL (1.40-6.50); Neutrophils % (auto) 73.5 %; Platelet Count 260 K/uL (130-400); RDW Coefficient of Variation 14.7 % (11.5-14.5); RDW Standard Deviation 44.4 fL (36.4-46.3); Red Blood Count 4.31 M/uL (4.20-5.40); White Blood Count 14.14 K/ul (4.8-10.8)
[2024-08-13 17:17] LABS: Alanine Aminotransferase 16 U/L (7-52); Albumin Globulin Ratio 1.4 (0.9-2); Alkaline Phosphatase 56 U/L (34-104); Anion Gap 7 (3-11); Aspartate Aminotransferase 16 U/L (13-39); BUN Creatinine Ratio 22.5 (10-20); Bilirubin,Total 0.3 mg/dl (0.2-1.0); Blood Urea Nitrogen 18 mg/dl (6-23); Calcium 8.5 mg/dl (8.6-10.3); Carbon Dioxide 24 mmol/L (21-32); Chloride 109 mmol/L (98-107); Creatinine Clr Calc Pharmacy 116.7 ml/min; Globulin 2.6 gm/dl (2.5-4.0); Glucose 124 mg/dl (70-99(Fasting)); Lipase 39 U/L (11-82); Potassium 3.6 mmol/L (3.5-5.1); Sodium 140 mmol/L (136-145); Total Protein 6.3 gm/dl (6.0-8.3)
[2024-08-13 17:22] LABS: Troponin I High Sensitivity < 2.3 pg/ml (0-14)
--- NOTE | 2024-08-13 18:29 | XRay Report ---
EXAM: XR chest 1V portable CLINICAL HISTORY: Cough, covid. TECHNIQUE: An X-ray image of the chest is obtained in AP projection. COMPARISON: CR dated 08/03/2024. FINDINGS: Pulmonary Parenchyma: Right lower lung zone hazy opacity No pulmonary nodules are identified. No evidence of pleural effusion or pleural thickening. Heart and Mediastinum: Heart size and shape are normal. No mediastinal widening or masses. No hilar or mediastinal lymphadenopathy. Bony Thorax: The bony thorax appears intact without fractures or deformities. Soft Tissues: Soft tissues overlying the chest wall are unremarkable. IMPRESSION: 1. Right lower lung zone hazy opacity, suggesting possible infiltrate relative regression compared to prior. 2. Please correlate clinically. Electronically signed by Vasiliy Briones 08-13-2024 6:29 PM
[2024-08-13] MEDS: CEFEPIME 2000MG 2,000 MG/20 ML SYR IV STA (20:22)
[2024-08-13] MEDS: OPTIRAY 320 100ml IV ONE (20:55)
[2024-08-13] MEDS: LORazepam 2 MG/1 ML VIAL IV STA (22:26)
--- NOTE | 2024-08-13 22:33 | CT Scan Report ---
Exam(s): CT ABDOMEN + PELVIS With Contrast IV Amt: 90 ml optiray 320 EXAM: CT Abdomen and Pelvis With Intravenous Contrast CLINICAL HISTORY: Reason for exam: fever, sepsis, diarrhea. TECHNIQUE: Axial computed tomography images of the abdomen and pelvis with intravenous contrast. CTDI is 28 mGy and DLP is 1429 mGy-cm. Automated exposure control was utilized for the study. A dose lowering technique was utilized adhering to the principles of ALARA. CONTRAST: Patient received 90 ml optiray 320 of IV contrast COMPARISON: 08/03/2024 FINDINGS: ABDOMEN: Liver: Unremarkable. Gallbladder and bile ducts: Unremarkable. Pancreas: Unremarkable. Spleen: Unremarkable. Adrenals: Unremarkable. Kidneys and ureters: Unremarkable. No obstructing stones. No hydronephrosis. Stomach and bowel: Unremarkable. PELVIS: Appendix: No findings to suggest acute appendicitis. Bladder: Unremarkable. Reproductive: Unremarkable as visualized. ABDOMEN and PELVIS: Intraperitoneal space: Unremarkable. No free air. No significant fluid collection. Bones/joints: No acute fracture. Soft tissues: Unremarkable. Vasculature: Unremarkable. Lymph nodes: Unremarkable. IMPRESSION: 1. No acute process within the abdomen or pelvis. Electronically signed by: Darren Gonzalez MD 08/13/24 22:32 PM
[2024-08-13 23:35] LABS: Appearance Urine Clear (Clear); Bacteria Urine Automated None Seen (None Seen); Bilirubin Urine Negative (Negative); Blood Urine 1+ (Negative); Cast Urine Automated 0-2 /lpf (0-2); Color Urine Yellow; Epithelial Cell Urine Auto 0-2 /hpf (0-2); Glucose Urine UA Negative (Negative); Ketones Urine Negative (Negative); Leukocyte Esterase Urine Negative (Negative); Nitrite Urine Negative (Negative); Protein Urine Negative (Negative); RBC Urine Automated 0-2 /hpf (0-2); Specific Gravity Urine 1.026 (1.000-1.030); Urobilinogen Urine Negative (Negative); WBC Urine Automated 0-5 /hpf (0-5)
[2024-08-14 01:04] LABS: Adenovirus PCR Not Detected (NotDetected); Bordetella parapertussis PCR Not Detected (NotDetected); Bordetella pertussis PCR Not Detected (NotDetected); Chlamydia pneumoniae PCR Not Detected (NotDetected); Coronavirus 229E PCR Not Detected (NotDetected); Coronavirus CoV-2 (COVID19)PCR Not Detected (NotDetected); Coronavirus HKU1 PCR Not Detected (NotDetected); Coronavirus NL63 PCR Not Detected (NotDetected); Coronavirus OC43PCR Not Detected (NotDetected); Human Metapneumovirus PCR Not Detected (NotDetected); Influenza A PCR Not Detected (NotDetected); Influenza B PCR Not Detected (NotDetected); Mycoplasma pneumoniae PCR Not Detected (NotDetected); Parainfluenza Virus 1 PCR Not Detected (NotDetected); Parainfluenza Virus 2 PCR Not Detected (NotDetected); Parainfluenza Virus 3 PCR Not Detected (NotDetected); Parainfluenza Virus 4 PCR Not Detected (NotDetected); Respiratory Syncytial VirusPCR Not Detected (NotDetected); Rhinovirus/Enterovirus PCR Not Detected (NotDetected)
[2024-08-14] MEDS: haloperidoL 5 MG TAB PO STA (01:21)
[2024-08-14] MEDS: BENZTROPINE MESYLATE 0.5 MG TAB PO STA (01:21)
[2024-08-14] MEDS ORDERED: HYDROCORTISONE 2.5% CR 30 GM TUBE EXT PRN (01:35)
[2024-08-14] MEDS ORDERED: ONDANSETRON INJ 2 MG/ML 2 ML VIAL IV PRN (01:35)
[2024-08-14] MEDS ORDERED: ALBUTEROL HFA 8 GM INHALER INH PRN (01:35)
[2024-08-14] MEDS ORDERED: NITROGLYCERIN SL 0.4 MG/TAB TAB SL PRN (01:35)
[2024-08-14] MEDS ORDERED: Nursing to Pharmacy Communication SCH ×2 (02:00→20:15)
[2024-08-14] MEDS: DOXYCYCLINE HYCLATE 100 MG in DEXTROSE 5% MINI-B 100 ML IV SCH (02:22)
[2024-08-14] MEDS: guaiFENesin/DEXTROM SYRUP 100MG/10MG 5ML UDC PO PRN (02:22)
[2024-08-14] MEDS: ACETAMINOPHEN 325 MG TAB PO PRN (02:22)
--- NOTE | 2024-08-14 04:39 | History & Physical Report ---
Date of Service August 13, 2024 Assessment & Plan (1) Pneumonia: Plan: 34-year-old female with past med history significant for migraine, moderate depression psychosis, schizophrenia comes with cough, headache, right earache and abdominal pain, recent covid and found to have pneumonia . Patient was initially diagnosed with COVID on July 10, 2024. She was again in the ER on August 10, 2024 with headache, sinus congestion, flulike symptoms and fatigue for several days and respiratory bio fire was positive for COVID and she was discharged to follow with PCP. Patient developed erythematous rash in bilateral lower extremity couple of days ago. Mother says whenever she recovering from the virus infection patient develops rash on some part of her body. Patient also having headaches. She thinks she had some drainage from the right ear. Also having abdominal pain. She has sunburn on the face and the arms. States she had an episode of vomiting. Denies chest pain or shortness of breath currently. Had some diarrhea.In the ER found to have urinary retention 800 mL and Prado was ordered. Hemodynamics are okay. Pneumonia COVID recent Possible sepsis with elevated lactic acid of 2.2 on repeat 1.3 and has leukocytosis Today's respiratory bio fire is negative for COVID Chest x-ray showing possible right lower lung pneumonia Will follow D-dimer Received cefepime in the ER Will continue with Rocephin and Doxy Will follow cultures Will monitor Abdominal pain CT abdomen pelvis no acute findings IV Pepcid and monitor Right ear pain No obvious erythema seen on exam. wax seen Antibiotics as above Bilateral lower extremity edema We will follow Dopplers Possible cellulitis Antibiotics as above History of depression Schizophrenia Continue home medications DVT prophylaxis Lovenox Disposition Telemetry Full code. History of Present Illness Chief Complaint: Pneumonia and COVID Primary Care Provider: Macy Ferrari DO 34-year-old female with past med history significant for migraine, moderate depression psychosis, schizophrenia comes with cough, headache, right earache and abdominal pain, recent covid and found to have pneumonia . Patient was initially diagnosed with COVID on July 10, 2024. She was again in the ER on August 10, 2024 with headache, sinus congestion, flulike symptoms and fatigue for several days and respiratory bio fire was positive for COVID and she was discharged to follow with PCP. Patient developed erythematous rash in bilateral lower extremity couple of days ago. Mother says whenever she recovering from the virus infection patient develops rash on some part of her body. Patient also having headaches. She thinks she had some drainage from the right ear. Also having abdominal pain. She has sunburn on the face and the arms. States she had an episode of vomiting. Denies chest pain or shortness of breath currently. Had some diarrhea.In the ER found to have urinary retention 800 mL and Prado was ordered. Hemodynamics are okay. Past medical history. As mentioned above Past surgical history. Dental surgery. Social history. No smoking. No alcohol use. No drug use. Family history. Father had cystic fibrosis. Aunt has type 1 diabetes. Allergies Allergy/AdvReac Type Severity Reaction Status Date / Time adhesive Allergy Intermediate Rash Verified 08/13/24 17:31 strawberry Allergy Intermediate Rash Verified 08/13/24 17:31 ragweed pollen Allergy Unknown ON Verified 08/13/24 17:31 Affresol LIST tree and shrub pollen Allergy Unknown Unknown Verified 08/13/24 17:31 yellow dye Allergy Unknown ON Verified 08/13/24 17:31 Affresol LIST STERIODS AdvReac Severe PSYCHOTIC Uncoded 08/13/24 17:31 ISSUES Home Medications Medication Instructions Recorded Confirmed Type cetirizine 10 mg tablet (Zyrtec) 10 mg PO QAM 11/03/19 08/13/24 History cholecalciferol (vitamin D3) 50 50 mcg PO QAM 10/22/22 08/13/24 History mcg (2,000 unit) tablet (Vitamin D3) vitamin B complex 1 tab PO QAM 10/22/22 08/13/24 History haloperidol 10 mg tablet 10 mg PO BID 06/25/24 08/13/24 History selenium sulfide 2.5 % lotion 1 applic topical DIRECTED 06/25/24 08/13/24 History benztropine 0.5 mg tablet 0.5 mg PO BID 07/04/24 08/13/24 History albuterol sulfate 90 mcg/actuation 2 puff inhalation Q4H PRN 08/03/24 08/13/24 History aerosol inhaler Shortness Of Breath Or Wheezing hydrocortisone 2.5 % topical cream 1 applic topical TID PRN Skin 08/03/24 08/13/24 History Irritation triamcinolone acetonide 55 mcg 2 spray intranasal BID 08/03/24 08/13/24 History nasal spray aerosol Past Med/Surg History Problem List (Updated 08/13/24 @ 23:54 by Rojelio Yadav DO) Sepsis (Acute) Pneumonia (Acute) COVID-19 (Acute) Abdominal pain (Acute) Syncope (Acute) Schizophrenia (Acute) Medical History Risk of exposure to Lyme disease Catatonia Vitamin D deficiency Migraine Allergic rhinitis Surgical History History of wisdom tooth extraction Family History Mother FHx: allergies Diabetes Heart disease Father , Age 56 Heart disease Myocardial infarction Pulmonary embolism Aunt Breast cancer Colorectal cancer Grandmother (Maternal) Myocardial infarction Denies family history of Ovarian cancer Prostate cancer Social History Smoking Status: Never smoker Second Hand Exposure: Yes; Do You Dip or Chew Tobacco: No; Hx Alcohol Use: Yes Alcohol type: beer and hard liquor Alcohol Intake Frequency: Monthly or Less Hx Substance Use: No Preferred Language: Czech Visual Impairment: Limited Hearing Ability: Normal Environmental Professional Required: No Beliefs That Will Affect Care: Advent Advent Beliefs: pt unwilling to state marital status: Single Current Living Situation: Family Current Living Situation Comment: with brothers current occupational status: employed current occupation: [employer] How many Children do You have: 0 Other Information That Helps Us Care for You: No Feels Safe at Home: Yes Safety Concerns: Feels Safe At This Time Childhood Exposure to Second-Hand Smoke: Yes caffeine: Yes Dental Care, Regularly: No Physical Activity Frequency: 1-2 Times per Week Seatbelt Use: always Sunscreen Use: Yes Do you think of yourself as: straight/heterosexual Sexual Activity: has never been active Gender Identity: Female Assistive Devices: None Review of Systems Review of Systems: All systems reviewed & are unremarkable except as noted in HPI & below Physical Exam Physical Exam: General- Not in distress Head- atraumatic Eyes- PERRL. ENT- oropharynx clear. Wax seen in right ear Neck- supple, no JVD. Lungs- clear to auscultation no wheezing or crackles Heart- regular rate and rhythm; no murmur, no gallop. Abdomen- normal bowel sounds, soft, nontender, no distension Extremities- b/l lower extremity erythematous rash seen, mild edema seen Neuro- alert, oriented PERRL, no facial palsy; no dysarthria; moves extremities Results & Data Results & Data Vital Signs (Past 12 Hours) Vital Signs Temp Pulse Pulse Resp BP BP Pulse Ox 08/13/24 22:00 80 18 135/109 H 98 08/13/24 20:30 82 18 147/101 H 98 08/13/24 19:42 78 16 121/85 98 08/13/24 19:00 90 18 99/55 L 98 08/13/24 18:00 37.3 C 91 H 23 121/67 99 08/13/24 16:37 103 H 29 H 109/84 97 08/13/24 16:26 104 H 08/13/24 16:00 37.2 C 114 H 20 117/72 96 O2 Del Method 08/13/24 22:00 Room Air 08/13/24 20:30 08/13/24 19:42 Room Air 08/13/24 19:00 08/13/24 18:00 Room Air 08/13/24 16:37 Room Air 08/13/24 16:26 08/13/24 16:00 Room Air Diagnostic Findings Laboratory Results WBC 14.14 K/ul (4.8-10.8) H 08/13/24 16:47 RBC 4.31 M/uL (4.20-5.40) 08/13/24 16:47 Hgb 11.7 g/dl (12.0-16.0) L 08/13/24 16:47 Hct 35.4 % (37.0-47.0) L 08/13/24 16:47 MCV 82.1 fL (80.0-100.0) 08/13/24 16:47 MCH 27.1 pg (25.0-34.0) 08/13/24 16:47 MCHC 33.1 g/dL (32.0-36.0) 08/13/24 16:47 RDW Std Deviation 44.4 fL (36.4-46.3) 08/13/24 16:47 RDW Coeff of Klar[place] 14.7 % (11.5-14.5) H 08/13/24 16:47 Plt Count 260 K/uL (130-400) 08/13/24 16:47 MPV 10.0 fL (9.4-12.4) 08/13/24 16:47 Immature Gran % (Auto) 0.4 % 08/13/24 16:47 Neut % (Auto) 73.5 % 08/13/24 16:47 Lymph % (Auto) 19.0 % 08/13/24 16:47 [place] % (Auto) 5.7 % 08/13/24 16:47 Eos % (Auto) 1.1 % 08/13/24 16:47 Baso % (Auto) 0.3 % 08/13/24 16:47 Neut # (Auto) 10.41 K/uL (1.40-6.50) H 08/13/24 16:47 Lymph # (Auto) 2.68 K/uL (1.20-3.40) 08/13/24 16:47 [place] # (Auto) 0.80 K/uL (0.11-0.59) H 08/13/24 16:47 Eos # (Auto) 0.15 K/uL (0.00-0.50) 08/13/24 16:47 Baso # (Auto) 0.04 K/uL (0.00-0.20) 08/13/24 16:47 Immature Gran # (Auto) 0.06 K/uL (0.01-0.20) 08/13/24 16:47 Sodium 140 mmol/L (136-145) 08/13/24 16:47 Potassium 3.6 mmol/L (3.5-5.1) 08/13/24 16:47 Chloride 109 mmol/L (98-107) H 08/13/24 16:47 Carbon Dioxide 24 mmol/L (21-32) 08/13/24 16:47 Anion Gap 7 (3-11) 08/13/24 16:47 BUN 18 mg/dl (6-23) 08/13/24 16:47 Creatinine 0.80 mg/dl (0.6-1.2) 08/13/24 16:47 Est Cr Clr Drug Dosing 116.7 ml/min 08/13/24 16:47 eGFR 99.09 08/13/24 16:47 BUN/Creatinine Ratio 22.5 (10-20) H 08/13/24 16:47 Glucose 124 mg/dl (70-99(Fasting)) H 08/13/24 16:47 Lactate 1.3 mmol/L (0.4-2.0) 08/13/24 20:31 Calcium 8.5 mg/dl (8.6-10.3) L 08/13/24 16:47 Total Bilirubin 0.3 mg/dl (0.2-1.0) 08/13/24 16:47 AST 16 U/L (13-39) 08/13/24 16:47 ALT 16 U/L (7-52) 08/13/24 16:47 Alkaline Phosphatase 56 U/L (34-104) 08/13/24 16:47 Troponin I High Sens < 2.3 pg/ml (0-14) 08/13/24 16:47 Total Protein 6.3 gm/dl (6.0-8.3) 08/13/24 16:47 Albumin 3.7 gm/dl (3.4-5.0) 08/13/24 16:47 Globulin 2.6 gm/dl (2.5-4.0) 08/13/24 16:47 Albumin/Globulin Ratio 1.4 (0.9-2) 08/13/24 16:47 Lipase 39 U/L (11-82) 08/13/24 16:47 Urine Color Yellow 08/13/24 22:54 Urine Appearance Clear (Clear) 08/13/24 22:54 Urine pH 6.0 (4.5-7.5) 08/13/24 22:54 Ur Specific [place] 1.026 (1.000-1.030) 08/13/24 22:54 Urine Protein Negative (Negative) 08/13/24 22:54 Urine Glucose (UA) Negative (Negative) 08/13/24 22:54 Urine Ketones Negative (Negative) 08/13/24 22:54 Urine Blood 1+ (Negative) H 08/13/24 22:54 Urine Nitrite Negative (Negative) 08/13/24 22:54 Urine Bilirubin Negative (Negative) 08/13/24 22:54 Urine Urobilinogen Negative (Negative) 08/13/24 22:54 Ur Leukocyte Esterase Negative (Negative) 08/13/24 22:54 Urine WBC (Auto) 0-5 /hpf (0-5) 08/13/24 22:54 Urine RBC (Auto) 0-2 /hpf (0-2) 08/13/24 22:54 U Hyaline Cast (Auto) 0-2 /lpf (0-2) 08/13/24 22:54 U Epithel Cells (Auto) 0-2 /hpf (0-2) 08/13/24 22:54 Urine Bacteria (Auto) None Seen (None Seen) 08/13/24 22:54 Urine Comment 08/13/24 22:54 Adenovirus (PCR) Not Detected (NotDetected) 08/13/24 23:26 B. pertussis DNA (PCR) Not Detected (NotDetected) 08/13/24 23:26 B.parapertussis DNA PCR Not Detected (NotDetected) 08/13/24 23:26 C. pneumoniae DNA (PCR) Not Detected (NotDetected) 08/13/24 23:26 Coronavirus OC43 (PCR) Not Detected (NotDetected) 08/13/24 23:26 Coronavirus HKU1 (PCR) Not Detected (NotDetected) 08/13/24 23:26 Coronavirus 229E (PCR) Not Detected (NotDetected) 08/13/24 23:26 SARS-CoV-2 (PCR) Not Detected (NotDetected) 08/13/24 23:26 Coronavirus NL63 (PCR) Not Detected (NotDetected) 08/13/24 23:26 Human Metapneumovir PCR Not Detected (NotDetected) 08/13/24 23:26 Influenza Type A (PCR) Not Detected (NotDetected) 08/13/24 23:26 Influenza Type B (PCR) Not Detected (NotDetected) 08/13/24 23:26 M. pneumoniae (PCR) Not Detected (NotDetected) 08/13/24 23:26 Parainfluenza 1 (PCR) Not Detected (NotDetected) 08/13/24 23:26 Parainfluenza 2 (PCR) Not Detected (NotDetected) 08/13/24 23:26 Parainfluenza 3 (PCR) Not Detected (NotDetected) 08/13/24 23:26 Parainfluenza 4 (PCR) Not Detected (NotDetected) 08/13/24 23:26 RSV (PCR) Not Detected (NotDetected) 08/13/24 23:26 Entero/Rhino (PCR) Not Detected (NotDetected) 08/13/24 23:26 Impressions Chest X-Ray 08/13/24 16:21 EXAM: XR chest 1V portable CLINICAL HISTORY: Cough, covid. TECHNIQUE: An X-ray image of the chest is obtained in AP projection. COMPARISON: CR dated 08/03/2024. FINDINGS: Pulmonary Parenchyma: Right lower lung zone hazy opacity No pulmonary nodules are identified. No evidence of pleural effusion or pleural thickening. Heart and Mediastinum: Heart size and shape are normal. No mediastinal widening or masses. No hilar or mediastinal lymphadenopathy. Bony Thorax: The bony thorax appears intact without fractures or deformities. Soft Tissues: Soft tissues overlying the chest wall are unremarkable. IMPRESSION: 1. Right lower lung zone hazy opacity, suggesting possible infiltrate relative regression compared to prior. 2. Please correlate clinically. Electronically signed by Vasiliy Briones 08-13-2024 6:29 PM Abdomen/Pelvis CT 08/13/24 19:44 Exam(s): CT ABDOMEN + PELVIS With Contrast IV Amt: 90 ml optiray 320 EXAM: CT Abdomen and Pelvis With Intravenous Contrast CLINICAL HISTORY: Reason for exam: fever, sepsis, diarrhea. TECHNIQUE: Axial computed tomography images of the abdomen and pelvis with intravenous contrast. CTDI is 28 mGy and DLP is 1429 mGy-cm. Automated exposure control was utilized for the study. A dose lowering technique was utilized adhering to the principles of ALARA. CONTRAST: Patient received 90 ml optiray 320 of IV contrast COMPARISON: 08/03/2024 FINDINGS: ABDOMEN: Liver: Unremarkable. Gallbladder and bile ducts: Unremarkable. Pancreas: Unremarkable. Spleen: Unremarkable. Adrenals: Unremarkable. Kidneys and ureters: Unremarkable. No obstructing stones. No hydronephrosis. Stomach and bowel: Unremarkable. PELVIS: Appendix: No findings to suggest acute appendicitis. Bladder: Unremarkable. Reproductive: Unremarkable as visualized. ABDOMEN and PELVIS: Intraperitoneal space: Unremarkable. No free air. No significant fluid collection. Bones/joints: No acute fracture. Soft tissues: Unremarkable. Vasculature: Unremarkable. Lymph nodes: Unremarkable. IMPRESSION: 1. No acute process within the abdomen or pelvis. Electronically signed by: Darren Gonzalez MD 08/13/24 22:32 PM ECG Additional Comments: ECG. Sinus tach rate of 104. Q waves in inferior leads. QTc 449 Code Status & VTE Plan VTE Prophylaxis Plan VTE Prophylaxis will be ordered: Yes
[2024-08-14] MEDS: FAMOTIDINE 20MG IV PUSH 20 MG/5 ML SYR IV SCH (06:05)
[2024-08-14 07:01] LABS: Basophils # (auto) 0.05 K/uL (0.00-0.20); Basophils % (auto) 0.5 %; Eosinophils # (auto) 0.31 K/uL (0.00-0.50); Eosinophils % (auto) 3.1 %; Hematocrit (blood only) 36.1 % (37.0-47.0); Hemoglobin 11.5 g/dl (12.0-16.0); Immature Granulocytes # (auto) 0.03 K/uL (0.01-0.20); Immature Granulocytes % (auto) 0.3 %; Lymphocytes # (auto) 3.25 K/uL (1.20-3.40); Lymphocytes % (auto) 32.3 %; Mean Corpuscular Hemoglobin 26.9 pg (25.0-34.0); Mean Corpuscular Hgb Conc 31.9 g/dL (32.0-36.0); Mean Corpuscular Volume 84.3 fL (80.0-100.0); Mean Platelet Volume 9.8 fL (9.4-12.4); Neutrophils # (auto) 5.91 K/uL (1.40-6.50); Neutrophils % (auto) 58.8 %; Platelet Count 221 K/uL (130-400); RDW Coefficient of Variation 14.7 % (11.5-14.5); RDW Standard Deviation 44.9 fL (36.4-46.3); Red Blood Count 4.28 M/uL (4.20-5.40); White Blood Count 10.05 K/ul (4.8-10.8)
[2024-08-14 07:18] LABS: BUN Creatinine Ratio 20.6 (10-20); Creatinine Clr Calc Pharmacy 144.5 ml/min; Potassium 4.1 mmol/L (3.5-5.1)
[2024-08-14 07:46] LABS: D Dimer 440 ug/L FEU (0-500)
--- NOTE | 2024-08-14 07:53 | Hospitalist Progress Note ---
Date of Service August 14, 2024 Assessment & Plan (1) Sepsis: (2) Pneumonia: (3) Abdominal pain: (4) Schizophrenia: Plan 34 year old female with PMH significant for migraine, moderate depressive psychosis, and schizophrenia who presented to the ED on 08/13/2024 with flu-like symptoms and is admitted for sepsis secondary to pneumonia. Sepsis secondary to pneumonia Patient meets criteria for sepsis given leukocytosis, tachycardia, and tachypnea on admission CXR showing possible RLL pneumonia Follow blood cultures Vitals stable and leukocytosis resolved Continue ceftriaxone and doxycycline Continue supportive care for PNA including PRN tylenol, flonase, mucinex, robitussin Recent COVID infection First diagnosed with COVID-19 on 07/10/2024 Completed course of doxycycline and Paxlovid Presented to the ED on 08/10/2024 with flu like symptoms and tested positive for COVID-19 Biofire this visit negative Abdominal pain CT abdomen pelvis with no acute findings Continue pepcid Bilateral lower extremity edema D dimer negative Venous doppler pending Urinary retention Bladder scan revealed 800cc in ED Prado placed but patient self removed Voiding in toilet since then without retention Urology consulted and recommend continued monitoring and PVR today then scan PRN Schizophrenia Continue haloperidol and benztropine DVT Prophylaxis: SQ lovenox Code Status: FULL CODE PCP: Macy Ferrari Disposition: inpatient management of sepsis/PNA Patient seen in collaboration with Dr Pruitt. Please see addendum. I spent a total of 60 minutes coordinating, documenting and providing care for this patient excluding time spent in the performance of separately billed services or time spent by another provider/QHP. Admission and Anticipated Discharge Date Admission Date: August 13, 2024 Supervising Physician Co-Signing Physician Notes Patient seen and examined Agree with plans as detailed by Kimberly HO Subjective Patient seen in her room Reports nasal congestion, generalized abdominal pain and nausea Denies current headache, dizziness, chest pain, SOB, weakness Review of Systems Review of Systems: All systems reviewed & are unremarkable except as noted in Subjective Physical Exam Physical Exam: General/Psych: obese, ambulating in room, flat affect, mumbling Head: normocephalic, atraumatic Eyes: normal inspection, PERRL, conjunctivae pink, anicteric sclerae ENT: external ear and nose normal, oropharynx normal Neck: normal visual inspection, trachea midline Respiratory: normal respiratory effort, lungs clear to auscultation, no wheeze/rales/rhonchi, no accessory muscle use Cardiovascular: regular rate and rhythm, no murmur/rub/gallop, no JVD Extremities: no cyanosis or clubbing, normal peripheral pulses, no BLE edema Abdomen/GI: normal bowel sounds, soft, tender on palpation, no hepatosplenomegaly Neurologic/MSK: A+Ox3, CN's II-XI intact bilaterally, motor strength 5/5, moves all extremities Skin: no rashes, sunburned, warm and dry, seborrheic dermatitis of scalp Results & Data Results & Data Vital Signs (Past 12 Hours) Vital Signs Temp Pulse Pulse Resp BP Pulse Ox O2 Del Method 08/14/24 02:27 Room Air 08/14/24 01:47 87 08/14/24 01:36 36.5 C 79 18 143/96 H 99 Room Air 08/14/24 00:00 83 18 139/89 98 Room Air 08/13/24 22:00 80 18 135/109 H 98 Room Air 08/13/24 20:30 82 18 147/101 H 98 Laboratory Results Short CBC 08/13/24 08/14/24 Range/Units 16:47 06:37 WBC 14.14 H 10.05 (4.8-10.8) K/ul Hgb 11.7 L 11.5 L (12.0-16.0) g/dl Hct 35.4 L 36.1 L (37.0-47.0) % Plt Count 260 221 (130-400) K/uL BMP 08/13/24 08/14/24 16:47 06:37 Sodium 140 137 Potassium 3.6 4.1 Chloride 109 H 108 H Carbon Dioxide 24 22 BUN 18 13 Creatinine 0.80 0.63 Glucose 124 H 94 Calcium 8.5 L 8.0 L Liver Function 08/13/24 Range/Units 16:47 Total Bilirubin 0.3 (0.2-1.0) mg/dl AST 16 (13-39) U/L ALT 16 (7-52) U/L Alkaline Phosphatase 56 (34-104) U/L Albumin 3.7 (3.4-5.0) gm/dl Urine 08/13/24 Range/Units 22:54 Urine Color Yellow Urine Appearance Clear (Clear) Urine pH 6.0 (4.5-7.5) Ur Specific [place] 1.026 (1.000-1.030) Urine Protein Negative (Negative) Urine Glucose (UA) Negative (Negative) I have independently reviewed and interpreted patient's labs including CBC, BMP, mag, d-dimer. Diagnostic Findings Chest X-Ray 08/13/24 16:21 EXAM: XR chest 1V portable CLINICAL HISTORY: Cough, covid. TECHNIQUE: An X-ray image of the chest is obtained in AP projection. COMPARISON: CR dated 08/03/2024. FINDINGS: Pulmonary Parenchyma: Right lower lung zone hazy opacity No pulmonary nodules are identified. No evidence of pleural effusion or pleural thickening. Heart and Mediastinum: Heart size and shape are normal. No mediastinal widening or masses. No hilar or mediastinal lymphadenopathy. Bony Thorax: The bony thorax appears intact without fractures or deformities. Soft Tissues: Soft tissues overlying the chest wall are unremarkable. IMPRESSION: 1. Right lower lung zone hazy opacity, suggesting possible infiltrate relative regression compared to prior. 2. Please correlate clinically. Electronically signed by Vasiliy Briones 08-13-2024 6:29 PM Abdomen/Pelvis CT 08/13/24 19:44 Exam(s): CT ABDOMEN + PELVIS With Contrast IV Amt: 90 ml optiray 320 EXAM: CT Abdomen and Pelvis With Intravenous Contrast CLINICAL HISTORY: Reason for exam: fever, sepsis, diarrhea. TECHNIQUE: Axial computed tomography images of the abdomen and pelvis with intravenous contrast. CTDI is 28 mGy and DLP is 1429 mGy-cm. Automated exposure control was utilized for the study. A dose lowering technique was utilized adhering to the principles of ALARA. CONTRAST: Patient received 90 ml optiray 320 of IV contrast COMPARISON: 08/03/2024 FINDINGS: ABDOMEN: Liver: Unremarkable. Gallbladder and bile ducts: Unremarkable. Pancreas: Unremarkable. Spleen: Unremarkable. Adrenals: Unremarkable. Kidneys and ureters: Unremarkable. No obstructing stones. No hydronephrosis. Stomach and bowel: Unremarkable. PELVIS: Appendix: No findings to suggest acute appendicitis. Bladder: Unremarkable. Reproductive: Unremarkable as visualized. ABDOMEN and PELVIS: Intraperitoneal space: Unremarkable. No free air. No significant fluid collection. Bones/joints: No acute fracture. Soft tissues: Unremarkable. Vasculature: Unremarkable. Lymph nodes: Unremarkable. IMPRESSION: 1. No acute process within the abdomen or pelvis. Electronically signed by: Darren Gonzalez MD 08/13/24 22:32 PM Medications Administered Current Inpatient Medications Acetaminophen (Acetaminophen 325 Mg Tab) 650 mg PO Q4H PRN PRN Reason: Pain or Fever Stop: 09/13/24 01:34 Last Admin: 08/14/24 02:22 Dose: 650 mg Albuterol (Albuterol Hfa 8 Gm Inhaler) 2 puffs INH Q4H PRN PRN Reason: Shortness Of Breath Or Wheezin Stop: 09/13/24 01:34 Benztropine Mesylate (Benztropine Mesylate 0.5 Mg Tab) 0.5 mg PO BID@0100,1300 [facility] Stop: 09/13/24 12:59 Cetirizine HCl (Cetirizine Hcl 10 Mg Tablet) 10 mg PO QAM [facility] Stop: 09/13/24 08:59 Enoxaparin Sodium (Enoxaparin Inj 40 Mg/0.4 Ml Syr) 40 mg SQ Q12H [facility] Stop: 09/13/24 08:59 Fluticasone Propionate (Fluticasone Propionate Na Spr 16 Gm Btl) 2 sprays NA DAILY [facility] Stop: 09/13/24 08:59 Guaifenesin/Dextromethorphan (Guaifenesin/Dextrom Syrup 100mg/10mg 5ml Udc) 5 ml PO Q6H PRN PRN Reason: Cough Stop: 09/13/24 01:34 Last Admin: 08/14/24 02:22 Dose: 5 ml Haloperidol (Haloperidol 5 Mg Tab) 10 mg PO BID [facility] Stop: 09/13/24 08:59 Hydrocortisone (Hydrocortisone 2.5% Cr 30 Gm Tube) 1 appln EXT TID PRN PRN Reason: Skin Irritation Stop: 09/13/24 01:34 Ceftriaxone Sodium (Rocephin) 2,000 mg in 50 mls @ 100 mls/hr IV Q24H [facility] Stop: 08/19/24 07:59 Doxycycline Hyclate 100 mg/ (Dextrose) 100 mls @ 50 mls/hr IV Q12H [facility] Stop: 08/19/24 01:59 Last Infusion: 08/14/24 04:25 Dose: Infused Famotidine (Pepcid 20mg Iv Push) 20 mg in 5 mls @ 2.5 mls/min IV Q12H [facility] Stop: 09/13/24 05:59 Last Admin: 08/14/24 06:05 Dose: 2.5 mls/min Nitroglycerin (Nitroglycerin Sl 0.4 Mg/Tab Tab) 0.4 mg SL Q5M PRN PRN Reason: Chest Pain Stop: 09/13/24 01:34 Ondansetron HCl (Ondansetron Inj 2 Mg/Ml 2 Ml Vial) 4 mg IV Q6H PRN PRN Reason: Nausea Stop: 09/13/24 01:34 Vitamin B Complex (Vitamin B Complex Tab) [facility] [place] Stop: 09/13/24 08:59 Vitamin D (Cholecalciferol 25 Mcg (1000 Units) Tab) 50 mcg PO QAM [facility] Stop: 09/13/24 08:59
[2024-08-14] MEDS: cefTRIAXone SODIUM 2,000 MG/50 ML BAG IV SCH (09:32)
[2024-08-14] MEDS: CETIRIZINE HCL 10 MG TABLET PO SCH (09:32)
[2024-08-14] MEDS: VITAMIN B COMPLEX TAB PO SCH (09:32)
[2024-08-14] MEDS: ENOXAPARIN INJ 40 MG/0.4 ML SYR SQ SCH (09:32)
[2024-08-14] MEDS: FLUTICASONE PROPIONATE NA SPR 16 GM BTL SCH (09:32)
[2024-08-14] MEDS: haloperidoL 5 MG TAB PO SCH (09:32)
[2024-08-14] MEDS: CHOLECALCIFEROL 25 MCG (1000 UNITS) TAB PO SCH (09:32)
--- NOTE | 2024-08-14 09:38 | Urology Consultation ---
Date of Consultation August 14, 2024 Assessment & Plan (1) Urinary retention: 34-year-old female admitted for COVID 19, pneumonia, and possible sepsis. She was found to have urinary retention in ED. Prado was placed by nursing, but then traumatically removed by patient and then voided on her own. Urology is consulted for urinary retention. She seems to be voiding at this time, so recommend simply monitoring Recommend monitor voiding/emptying Nursing can encourage timed voiding and double voiding Recommend check post void residual bladder scan today, then bladder scan as needed Nursing can place Prado catheter if there is evidence of retention and patient is unable to voidif patient allows it There is no need for urology to place catheterif patient refuses catheter, this is a behavioral issue not a structural issue UA on arrival was not suggestive of infection; showed 1+ blood, but microscopic exam 0-2 RBC/hpf She reports seeing some hematuria with void and attributes to her menstrual cycle, but also likely to be from traumatic removal of catheter if not on her mensesmonitor Continue medical management per primary team will sign off History of Present Illness Attending Physician: Danii Pruitt MD History of Present Illness This is a 34-year-old female who presented to the ED on 08/13/2024 for evaluation of lightheadedness, fever, cough and diarrhea in the setting of recent COVID-19 diagnosis. On arrival to the ED, she was afebrile, tachycardic, normotensive. Patient was found to have leukocytosis (14.14) and elevated lactate; hemoglobin 11.7, creatinine 0.8. Urinalysis showed 1+ blood, but microscopic exam with 0-2 RBC/hpf; otherwise unremarkable. Bladder scan in the ED revealed 800 mL. A Prado catheter was placed, but patient self removed. Per notes, she was able to void 700 mL after removal. ED course: IV fluids, acetaminophen, cefepime, ondansetron and lorazepam. She was admitted to the hospital medicine service for COVID 19, pneumonia and possible sepsis as well as urinary retention. Workup in the emergency department included CT abdomen pelvis with IV contrast which showed no stones or hydronephrosis. No acute process within the abdomen or pelvis. Urology is consulted today for urinary retention. Labs today reviewedcreatinine 0.63, WBC 10.05, hemoglobin 11.5. Blood cultures are pending. Patient seen and examined at bedside this morning. She is awake and standing up in room eating breakfast. It is difficult to obtain meaningful history. She reports she voided this morning. She reports she saw blood in the urine and she attributes to menstrual cycle. She reports cough. Denies constipation. No fever or chills at present. She reports that she has overactive bladder. Endorses urinary frequency, urgency and occasional incontinence at baseline. Allergies Allergy/AdvReac Type Severity Reaction Status Date / Time adhesive Allergy Intermediate Rash Verified 08/13/24 17:31 strawberry Allergy Intermediate Rash Verified 08/13/24 17:31 ragweed pollen Allergy Unknown ON Verified 08/13/24 17:31 GENovastER MED LIST tree and shrub pollen Allergy Unknown Unknown Verified 08/13/24 17: yellow dye Allergy Unknown ON Verified 08/13/24 17:31 NeuMoDx MolecularER MED LIST STERIODS AdvReac Severe PSYCHOTIC Uncoded 08/13/24 17:31 ISSUES Home Medications Medication Instructions Recorded Confirmed Type cetirizine 10 mg tablet (Zyrtec) 10 mg PO QAM 11/03/19 08/13/24 History cholecalciferol (vitamin D3) 50 50 mcg PO QAM 10/22/22 08/13/24 History mcg (2,000 unit) tablet (Vitamin D3) vitamin B complex 1 tab PO QAM 10/22/22 08/13/24 History haloperidol 10 mg tablet 10 mg PO BID 06/25/24 08/13/24 History selenium sulfide 2.5 % lotion 1 applic topical DIRECTED 06/25/24 08/13/24 History benztropine 0.5 mg tablet 0.5 mg PO BID 07/04/24 08/13/24 History albuterol sulfate 90 mcg/actuation 2 puff inhalation Q4H PRN 08/03/24 08/13/24 History aerosol inhaler Shortness Of Breath Or Wheezing hydrocortisone 2.5 % topical cream 1 applic topical TID PRN Skin 08/03/24 08/13/24 History Irritation triamcinolone acetonide 55 mcg 2 spray intranasal BID 08/03/24 08/13/24 History nasal spray aerosol Patient History Medical History Risk of exposure to Lyme disease Catatonia Vitamin D deficiency Migraine Allergic rhinitis Surgical History History of wisdom tooth extraction Family History Mother FHx: allergies Diabetes Heart disease Father , Age 56 Heart disease Myocardial infarction Pulmonary embolism Aunt Breast cancer Colorectal cancer Grandmother (Maternal) Myocardial infarction Denies family history of Ovarian cancer Prostate cancer Social History Smoking Status: Never smoker Second Hand Exposure: Yes; Do You Dip or Chew Tobacco: No; Hx Alcohol Use: Yes Alcohol type: beer and hard liquor Alcohol Intake Frequency: Monthly or Less Hx Substance Use: No Preferred Language: American Visual Impairment: Limited Hearing Ability: Normal Environmental Programs Manager Required: No Beliefs That Will Affect Care: Scientologist Scientologist Beliefs: pt unwilling to state marital status: Single Current Living Situation: Family Current Living Situation Comment: with brothers current occupational status: employed current occupation: [employer] How many Children do You have: 0 Other Information That Helps Us Care for You: No Feels Safe at Home: Yes Safety Concerns: Feels Safe At This Time Childhood Exposure to Second-Hand Smoke: Yes caffeine: Yes Dental Care, Regularly: No Physical Activity Frequency: 1-2 Times per Week Seatbelt Use: always Sunscreen Use: Yes Do you think of yourself as: straight/heterosexual Sexual Activity: has never been active Gender Identity: Female Assistive Devices: None Review of Systems Review of Systems: All systems reviewed & are unremarkable except as noted in HPI & below Physical Exam Constitutional: no acute distress Respiratory: no respiratory distress and no labored breathing Neurologic: moves all extremities and awake Psychiatric: Orientation: alert and oriented x 3 Results & Data Vital Signs (Past 12 Hours) Vital Signs Temp Pulse Pulse Resp BP Pulse Ox O2 Del Method 08/14/24 07:59 36.7 C 80 20 143/99 H 100 Room Air 08/14/24 02:27 Room Air 08/14/24 01:47 87 08/14/24 01:36 36.5 C 79 18 143/96 H 99 Room Air 08/14/24 00:00 83 18 139/89 98 Room Air 08/13/24 22:00 80 18 135/109 H 98 Room Air PG Care Time/CCT Total # of Minutes Spent Total Time Spent with Patient: Total time spent is greater than 50% in coordination of care (as documented) at patient's floor/unit and/or counseling patient: Coding Level of Care Code 32670 IN/OBS CONSULT LVL 3,45M Diagnoses Urinary retention R33.9
--- NOTE | 2024-08-14 11:36 | Ultrasound Report ---
BILATERAL LOWER EXTREMITY VENOUS DOPPLER HISTORY: b/l lower ext erythema. dvt? COMPARISON STUDY: None FINDINGS: No evidence of DVT seen of bilateral lower extremities. IMPRESSION: No DVT seen. ACT 112: Negative or not required by law. Electronically signed by: Jonah Pagan M.D. 08/14/2024 11:35 AM
[2024-08-14] MEDS: BENZTROPINE MESYLATE 0.5 MG TAB PO SCH (13:40)
--- NOTE | 2024-08-14 16:32 | Electrocardiogram Report ---
Test Reason : Blood Pressure : */* mmHG Vent. Rate : 104 BPM Atrial Rate : 104 BPM P-R Int : 142 ms QRS Dur : 66 ms QT Int : 342 ms P-R-T Axes : -20 -10 -12 degrees QTcB Int : 449 ms Sinus tachycardia Inferior infarct , age undetermined Abnormal ECG When compared with ECG of 03-Aug-2024 19:31, Inferior infarct is now Present Nonspecific T wave abnormality no longer evident in Lateral leads Confirmed by Virgil Trevino ([id number]) on 08/14/2024 4:32:19 PM Referred By: REFERRED SELF Confirmed By: Virgil Trevino
[2024-08-14] MEDS: guaiFENesin 600 MG TABCR PO SCH (20:04)
[2024-08-15] MEDS: haloperidoL 5 MG TAB PO SCH (01:48)
[2024-08-15 03:46] VITALS: RESP 18
[2024-08-15 07:17] VITALS: PULSE 51; TEMP 97.7; O2SAT 100
--- NOTE | 2024-08-15 07:51 | Hospitalist Progress Note ---
Date of Service August 15, 2024 Assessment & Plan (1) Sepsis: (2) Pneumonia: (3) Abdominal pain: (4) Schizophrenia: Plan 34 year old female with PMH significant for migraine, moderate depressive psychosis, and schizophrenia who presented to the ED on 08/13/2024 with flu-like symptoms and is admitted for sepsis secondary to pneumonia. Sepsis secondary to pneumonia Patient meets criteria for sepsis given leukocytosis, tachycardia, and tachypnea on admission Vitals stable and leukocytosis resolved CXR showing possible RLL pneumonia Blood cultures prelim NGTD Continue ceftriaxone and doxycycline Continue supportive care for PNA including PRN tylenol, flonase, mucinex, robitussin Recent COVID infection First diagnosed with COVID-19 on 07/10/2024 Completed course of doxycycline and Paxlovid Presented to the ED on 08/10/2024 with flu like symptoms and tested positive for COVID-19 Biofire this visit negative Abdominal pain CT abdomen pelvis with no acute findings Continue pepcid Bilateral lower extremity edema D dimer and venous doppler negative Urinary retention Bladder scan revealed 800cc in ED Prado placed but patient self removed Voiding in toilet since then without retention Urology consulted and recommend continued monitoring Bladder scan PRN Schizophrenia Continue haloperidol and benztropine DVT Prophylaxis: SQ lovenox Code Status: FULL CODE PCP: Macy Ferrari Disposition: inpatient management of sepsis/PNA Patient seen in collaboration with Dr Pruitt. Please see addendum. I spent a total of 60 minutes coordinating, documenting and providing care for this patient excluding time spent in the performance of separately billed services or time spent by another provider/QHP. Admission and Anticipated Discharge Date Admission Date: August 13, 2024 Review of Systems Review of Systems: All systems reviewed & are unremarkable except as noted in Subjective Results & Data Results & Data Vital Signs (Past 12 Hours) Vital Signs Temp Pulse Pulse Resp BP BP Pulse Ox 08/15/24 07:16 36.5 C 51 L 18 122/73 100 08/15/24 02:45 36.6 C 73 18 131/85 96 08/15/24 00:09 36.5 C 84 17 131/85 100 08/14/24 22:53 73 08/14/24 20:21 08/14/24 20:07 36.7 C 84 16 124/87 100 O2 Del Method 08/15/24 07:16 Room Air 08/15/24 02:45 Room Air 08/15/24 00:09 Room Air 08/14/24 22:53 08/14/24 20:21 Room Air 08/14/24 20:07 Room Air Diagnostic Findings Venous Doppler Study 08/14/24 03:08 BILATERAL LOWER EXTREMITY VENOUS DOPPLER HISTORY: b/l lower ext erythema. dvt? COMPARISON STUDY: None FINDINGS: No evidence of DVT seen of bilateral lower extremities. IMPRESSION: No DVT seen. ACT 112: Negative or not required by law. Electronically signed by: Jonah Pagan M.D. 08/14/2024 11:35 AM Medications Administered Current Inpatient Medications Acetaminophen (Acetaminophen 325 Mg Tab) 650 mg PO Q4H PRN PRN Reason: Pain or Fever Stop: 09/13/24 01:34 Last Admin: 08/14/24 15:00 Dose: 650 mg Albuterol (Albuterol Hfa 8 Gm Inhaler) 2 puffs INH Q4H PRN PRN Reason: Shortness Of Breath Or Wheezin Stop: 09/13/24 01:34 Benztropine Mesylate (Benztropine Mesylate 0.5 Mg Tab) 0.5 mg PO BID@0100,1300 [facility] Stop: 09/13/24 12:59 Last Admin: 08/15/24 01:48 Dose: 0.5 mg Cetirizine HCl (Cetirizine Hcl 10 Mg Tablet) 10 mg PO QAM [facility] Stop: 09/13/24 08:59 Last Admin: 08/14/24 09:32 Dose: 10 mg Enoxaparin Sodium (Enoxaparin Inj 40 Mg/0.4 Ml Syr) 40 mg SQ Q12H [facility] Stop: 09/13/24 08:59 Last Admin: 08/14/24 20:04 Dose: 40 mg Fluticasone Propionate (Fluticasone Propionate Na Spr 16 Gm Btl) 2 sprays NA DAILY [facility] Stop: 09/13/24 08:59 Last Admin: 08/14/24 09:32 Dose: Not Given Guaifenesin (Guaifenesin 600 Mg Tabcr) 600 mg PO Q12 [facility] Stop: 09/13/24 20:59 Last Admin: 08/14/24 20:04 Dose: 600 mg Guaifenesin/Dextromethorphan (Guaifenesin/Dextrom Syrup 100mg/10mg 5ml Udc) 5 ml PO Q6H PRN PRN Reason: Cough Stop: 09/13/24 01:34 Last Admin: 08/14/24 02:22 Dose: 5 ml Haloperidol (Haloperidol 5 Mg Tab) 10 mg PO BID@0100,1300 [facility] Stop: 09/13/24 08:59 Last Admin: 08/15/24 01:48 Dose: 10 mg Hydrocortisone (Hydrocortisone 2.5% Cr 30 Gm Tube) 1 appln EXT TID PRN PRN Reason: Skin Irritation Stop: 09/13/24 01:34 Ceftriaxone Sodium (Rocephin) 2,000 mg in 50 mls @ 100 mls/hr IV Q24H [facility] Stop: 08/19/24 07:59 Last Infusion: 08/14/24 10:30 Dose: Infused Doxycycline Hyclate 100 mg/ (Dextrose) 100 mls @ 50 mls/hr IV Q12H [facility] Stop: 08/19/24 01:59 Last Infusion: 08/15/24 03:42 Dose: Infused Famotidine (Pepcid 20mg Iv Push) 20 mg in 5 mls @ 2.5 mls/min IV Q12H [facility] Stop: 09/13/24 05:59 Last Admin: 08/15/24 06:16 Dose: 2.5 mls/min Nitroglycerin (Nitroglycerin Sl 0.4 Mg/Tab Tab) 0.4 mg SL Q5M PRN PRN Reason: Chest Pain Stop: 09/13/24 01:34 Ondansetron HCl (Ondansetron Inj 2 Mg/Ml 2 Ml Vial) 4 mg IV Q6H PRN PRN Reason: Nausea Stop: 09/13/24 01:34 Vitamin B Complex (Vitamin B Complex Tab) 1 tab PO QAM [facility] Stop: 09/13/24 08:59 Last Admin: 08/14/24 09:32 Dose: 1 tab Vitamin D (Cholecalciferol 25 Mcg (1000 Units) Tab) 50 mcg PO QAM [facility] Stop: 09/13/24 08:59 Last Admin: 08/14/24 09:32 Dose: 50 mcg
[2024-08-15 08:10] LABS: Calcium 8.7 mg/dl (8.6-10.3); Potassium 4.4 mmol/L (3.5-5.1)
[2024-08-15 08:16] LABS: BUN Creatinine Ratio 18.9 (10-20)
[2024-08-15 08:24] LABS: Hematocrit (blood only) 42.5 % (37.0-47.0); Hemoglobin 13.7 g/dl (12.0-16.0); Mean Corpuscular Hemoglobin 27.1 pg (25.0-34.0); Mean Corpuscular Hgb Conc 32.2 g/dL (32.0-36.0); Mean Platelet Volume 9.5 fL (9.4-12.4); Platelet Count 261 K/uL (130-400); RDW Coefficient of Variation 14.6 % (11.5-14.5); RDW Standard Deviation 44.4 fL (36.4-46.3); Red Blood Count 5.06 M/uL (4.20-5.40)
--- NOTE | 2024-08-15 10:18 | Discharge Summary ---
Discharge Summary Date of Service August 15, 2024 Principal Dx & Hospital Course #1 = Principal Diagnosis (1) Sepsis: (2) Pneumonia: (3) Abdominal pain: (4) Schizophrenia: Plan 34 year old female with PMH significant for migraine, moderate depressive psychosis, and schizophrenia who presented to the ED on 08/13/2024 with flu-like symptoms and is admitted for sepsis secondary to pneumonia. Sepsis secondary to pneumonia Patient met criteria for sepsis given leukocytosis, tachycardia, and tachypnea on admission Vitals stable and leukocytosis resolved by time of discharge Blood cultures prelim with no growth CXR revealed possible RLL pneumonia Treated with IV ceftriaxone and doxycycline while inpatient Discharged on oral cefpodoxime and doxycycline for total of 5 day course Recommend supportive care for cold symptoms including PRN tylenol, nasal spray, mucinex, cough medicine Recent COVID infection First diagnosed with COVID-19 on 07/10/2024 Completed course of doxycycline and Paxlovid outpatient Presented to the ED on 08/10/2024 with flu like symptoms and tested positive for COVID-19 again Biofire this visit negative Postviral rash to bilateral LE - improved by time of discharge Abdominal pain CT abdomen pelvis with no acute findings Improved by time of discharge Bilateral lower extremity edema D dimer and venous doppler negative Improved by time of discharge Urinary retention Bladder scan revealed 800cc in ED Prado placed but patient self removed Voiding in toilet since then without retention Schizophrenia Continue home haloperidol and benztropine Spoke with patient's mother, Hina, and updated her on plan for discharge and prescribed medications. All questions and concerns addressed. Patient seen in collaboration with Dr Pruitt. Please see addendum. Notes For Next Care Provider 34 year old female with significant PMH who presented to the hospital with flu like symptoms and was found to be septic secondary to pneumonia. Treated with IV antibiotics and discharged on oral antibiotics for total of 5 day course. Labs, vitals, and symptoms all improved by time of discharge. Medication Changes From Visit -Cefpodoxime 200mg PO bid x3 days -Doxycycline 100mg PO bid x3 days Admission HPI Per Admitting Provider 34-year-old female with past med history significant for migraine, moderate depression psychosis, schizophrenia comes with cough, headache, right earache and abdominal pain, recent covid and found to have pneumonia . Patient was initially diagnosed with COVID on July 10, 2024. She was again in the ER on August 10, 2024 with headache, sinus congestion, flulike symptoms and fatigue for several days and respiratory bio fire was positive for COVID and she was discharged to follow with PCP. Patient developed erythematous rash in bilateral lower extremity couple of days ago. Mother says whenever she recovering from the virus infection patient develops rash on some part of her body. Patient also having headaches. She thinks she had some drainage from the right ear. Also having abdominal pain. She has sunburn on the face and the arms. States she had an episode of vomiting. Denies chest pain or shortness of breath currently. Had some diarrhea.In the ER found to have urinary retention 800 mL and Prado was ordered. Hemodynamics are okay. Past medical history. As mentioned above Past surgical history. Dental surgery. Social history. No smoking. No alcohol use. No drug use. Family history. Father had cystic fibrosis. Aunt has type 1 diabetes. Admission Exam Per Admitting Provider General- Not in distress Head- atraumatic Eyes- PERRL. ENT- oropharynx clear. Wax seen in right ear Neck- supple, no JVD. Lungs- clear to auscultation no wheezing or crackles Heart- regular rate and rhythm; no murmur, no gallop. Abdomen- normal bowel sounds, soft, nontender, no distension Extremities- b/l lower extremity erythematous rash seen, mild edema seen Neuro- alert, oriented PERRL, no facial palsy; no dysarthria; moves extremities Discharge Exam Gen/Psych: laying in bed, NAD, A&Ox3, flat affect HEENT: Normocephalic, atraumatic, conjunctivae pink, sclerae anicteric, mucous membranes moist Lung: Clear to auscultation bilaterally, no wheezes/rales/rhonchi Heart: Regular rate and rhythm, no murmurs/rubs/gallops Extremities: Normal peripheral pulses, no edema Abdomen: Soft, NT, ND, +BS x 4 Skin: Warm and dry, erythematous rash to bilateral LE - improved from yesterday Updated Medication List Medication Instructions Recorded Confirmed Type cetirizine 10 mg tablet (Zyrtec) 10 mg PO QAM 11/03/19 08/13/24 History cholecalciferol (vitamin D3) 50 50 mcg PO QAM 10/22/22 08/13/24 History mcg (2,000 unit) tablet (Vitamin D3) vitamin B complex 1 tab PO QAM 10/22/22 08/13/24 History haloperidol 10 mg tablet 10 mg PO BID 06/25/24 08/13/24 History selenium sulfide 2.5 % lotion 1 applic topical DIRECTED 06/25/24 08/13/24 History benztropine 0.5 mg tablet 0.5 mg PO BID 07/04/24 08/13/24 History albuterol sulfate 90 mcg/actuation 2 puff inhalation Q4H PRN 08/03/24 08/13/24 History aerosol inhaler Shortness Of Breath Or Wheezing hydrocortisone 2.5 % topical cream 1 applic topical TID PRN Skin 08/03/24 08/13/24 History Irritation triamcinolone acetonide 55 mcg 2 spray intranasal BID 08/03/24 08/13/24 History nasal spray aerosol cefpodoxime 200 mg tablet 200 mg PO BID #6 tabs 08/15/24 Rx doxycycline hyclate 100 mg capsule 100 mg PO BID #7 caps 08/15/24 Rx Hospital Stay Data Consultations 08/13/24 22:41 ED Decision to Admit Stat Diagnostic Imagining Performed Chest X-Ray 08/13/24 16:21 EXAM: XR chest 1V portable CLINICAL HISTORY: Cough, covid. TECHNIQUE: An X-ray image of the chest is obtained in AP projection. COMPARISON: CR dated 08/03/2024. FINDINGS: Pulmonary Parenchyma: Right lower lung zone hazy opacity No pulmonary nodules are identified. No evidence of pleural effusion or pleural thickening. Heart and Mediastinum: Heart size and shape are normal. No mediastinal widening or masses. No hilar or mediastinal lymphadenopathy. Bony Thorax: The bony thorax appears intact without fractures or deformities. Soft Tissues: Soft tissues overlying the chest wall are unremarkable. IMPRESSION: 1. Right lower lung zone hazy opacity, suggesting possible infiltrate relative regression compared to prior. 2. Please correlate clinically. Electronically signed by Vasiliy Briones 08-13-2024 6:29 PM Abdomen/Pelvis CT 08/13/24 19:44 Exam(s): CT ABDOMEN + PELVIS With Contrast IV Amt: 90 ml optiray 320 EXAM: CT Abdomen and Pelvis With Intravenous Contrast CLINICAL HISTORY: Reason for exam: fever, sepsis, diarrhea. TECHNIQUE: Axial computed tomography images of the abdomen and pelvis with intravenous contrast. CTDI is 28 mGy and DLP is 1429 mGy-cm. Automated exposure control was utilized for the study. A dose lowering technique was utilized adhering to the principles of ALARA. CONTRAST: Patient received 90 ml optiray 320 of IV contrast COMPARISON: 08/03/2024 FINDINGS: ABDOMEN: Liver: Unremarkable. Gallbladder and bile ducts: Unremarkable. Pancreas: Unremarkable. Spleen: Unremarkable. Adrenals: Unremarkable. Kidneys and ureters: Unremarkable. No obstructing stones. No hydronephrosis. Stomach and bowel: Unremarkable. PELVIS: Appendix: No findings to suggest acute appendicitis. Bladder: Unremarkable. Reproductive: Unremarkable as visualized. ABDOMEN and PELVIS: Intraperitoneal space: Unremarkable. No free air. No significant fluid collection. Bones/joints: No acute fracture. Soft tissues: Unremarkable. Vasculature: Unremarkable. Lymph nodes: Unremarkable. IMPRESSION: 1. No acute process within the abdomen or pelvis. Electronically signed by: Darren Gonzalez MD 08/13/24 22:32 PM Venous Doppler Study 08/14/24 03:08 BILATERAL LOWER EXTREMITY VENOUS DOPPLER HISTORY: b/l lower ext erythema. dvt? COMPARISON STUDY: None FINDINGS: No evidence of DVT seen of bilateral lower extremities. IMPRESSION: No DVT seen. ACT 112: Negative or not required by law. Electronically signed by: Jonah Pagan M.D. 08/14/2024 11:35 AM Pending Results Patient Have Any Pending Studies at Discharge: Yes Discharge Instructions Given to Patient (Per Discharging Provider) You were admitted to the hospital for sepsis secondary to pneumonia. A chest x- ray was performed which showed possible pneumonia and you were treated with IV antibiotics. We monitored your labs and vitals signs which improved. Your symptoms also improved and you are feeling ready to go home. You are being discharged with oral antibiotics. MEDICATION CHANGES: -Cefpodoxime 200mg by mouth twice per day for 3 days (last dose on 08/18/2024) -Doxycycline 100mg by mouth twice per day for 3 days (last dose on 08/18/2024) -You may continue to take [id number] tylenol, nasal spray, Mucinex, and cough syrup as needed for cold symptoms SUMMARY OF TEST RESULTS: See above PENDING TEST RESULTS: Blood culture final results - preliminary results are negative so far RECOMMENDATIONS FOR FOLLOW-UP: Please follow up with your PCP after hospitalization OTHER INSTRUCTIONS: Seek medical attention if you have: * temperature above 101 * chest pain or trouble breathing * abdominal pain, nausea, vomiting * diarrhea, dark stools or bloody stools * any unanswered questions or concerns Call 911 if symptoms are severe. It has been a pleasure taking care of you. Please take care of yourself. If you have any questions regarding your recent hospitalization please contact [facility] and request Akhil Compaist @ [phone]. Total Time Total Time Spent Total Time Spent (In Minutes): I spent a total of 35 minutes coordinating, documenting and providing care for this patient excluding time spent in the performance of separately billed services or time spent by another provider/QHP. Supervising Physician Co-Signing Physician Notes Patient seen and examined Agree with findings and plans as detailed by Kimberly HO
[2024-08-15 10:36] VITALS: BP 131/85
[2024-08-15] MEDS ORDERED: FAMOTIDINE 20 MG TAB PO SCH (21:00)
== END 2024-08-15 11:30 | disposition home or self-care (01) | DRG 871 ==
LOC: ED 15:56 → 2E 23:56 → INTOOBSV 23:56 → 2E 08-14 01:29